=== PATIENT | female | born 1940 | race Caucasian/White ===

== ENCOUNTER → 2018-04-12 15:53 | Outpatient (CLI) | payer MEDICARE, OTHER, SELFPAY ==
[2018-04-12 16:56] LABS: Add Manual Diff / Slide Review NO; Basophils Percent Auto 1.3 % (0-2); Eosinophils Percent Auto 1.2 % (2-4); Hematocrit 42.8 % (36-46); Hemoglobin 14.3 g/dL (12.0-16.0); Lymphocytes Percent Auto 23.6 % (25-40); Mean Corpuscular HGB Conc 33.4 % (30-36); Mean Corpuscular Hemoglobin 33.2 PG (26-34); Mean Corpuscular Volume 99.5 fL (80-100); Monocytes Percent Auto 7.3 % (3-14); Neutrophils Absolute Auto 3900 /uL (3000-5900); Neutrophils Percent Auto 66.6 % (50-75); Platelet Count 372 X10^3/uL (150-400); Red Cell Distribution Width 14.3 % (11.6-14.8); White Blood Cell Count 5.9 X10^3/uL (4.5-11.0)
[2018-04-12 17:27] LABS: Alanine Aminotransferase 20 IU/L (9-52); Albumin 4.6 g/dL (3.5-5.0); Albumin Globulin Ratio 1.5 (1.0-2.8); Alkaline Phosphatase 62 U/L (38-126); Aspartate Aminotransferase 23 IU/L (14-36); BUN Creatinine Ratio 24.3 (6-22); Bilirubin Total 0.8 mg/dL (0.2-1.3); Blood Urea Nitrogen 17 mg/dL (7-17); C-Reactive Protein Quant 1.3 mg/dL (<1.0); Calcium 10.1 mg/dL (8.4-10.2); Carbon Dioxide 28 mmol/L (22-32); Chloride 93 mmol/L (98-107); Estimated Glomerular Filt Rate > 60.0 mL/min (>60); Glucose 84 mg/dL (80-110); HEMOLYSIS < 15 (0-50); Sodium 133 mmol/L (137-145); Total Protein 7.6 g/dL (6.3-8.2)
[2018-04-12 17:44] LABS: Potassium 5.5 mmol/L (3.4-5.1)
== END ==
PROVIDERS: PCP Internal Medicine; Visit Provider Internal Medicine Rheumatology
DX: M05.79 Rheumatoid arthritis with rheumatoid factor of multiple sites without organ or systems involvement (principal); Z79.899 Other long term (current) drug therapy
CPT/HCPCS: 36415; 80053; 85025; 86140

== ENCOUNTER → 2018-10-14 12:29 | Outpatient (CLI) | payer MEDICARE, OTHER, SELFPAY ==
[2018-10-14 12:56] LABS: Add Manual Diff / Slide Review NO; Basophils Percent Auto 1.2 % (0-2); Eosinophils Percent Auto 1.8 % (2-4); Hematocrit 42.3 % (36-46); Hemoglobin 14.2 g/dL (12.0-16.0); Lymphocytes Percent Auto 18.7 % (25-40); Mean Corpuscular HGB Conc 33.5 % (30-36); Mean Corpuscular Hemoglobin 33.6 PG (26-34); Mean Corpuscular Volume 100.1 fL (80-100); Monocytes Percent Auto 11.6 % (3-14); Neutrophils Absolute Auto 4700 /uL (1500-7000); Neutrophils Percent Auto 66.7 % (50-75); Platelet Count 393 X10^3/uL (150-400); Red Blood Cell Count 4.22 X10^6/uL (4.0-5.2)
[2018-10-14 13:11] LABS: Alanine Aminotransferase 18 IU/L (9-52); Albumin 4.7 g/dL (3.5-5.0); Albumin Globulin Ratio 1.3 (1.0-2.8); Alkaline Phosphatase 73 U/L (38-126); Aspartate Aminotransferase 28 IU/L (14-36); Bilirubin Total 1.2 mg/dL (0.2-1.3); Blood Urea Nitrogen 21 mg/dL (7-17); C-Reactive Protein Quant < 0.5 mg/dL (<1.0); Calcium 10.2 mg/dL (8.4-10.2); Carbon Dioxide 29 mmol/L (22-32); Chloride 97 mmol/L (98-107); Estimated Glomerular Filt Rate > 60.0 mL/min (>60); Globulin 3.5 g/dL (1.7-4.1); Glucose 91 mg/dL (80-110); HEMOLYSIS < 15 (0-50); Sodium 137 mmol/L (137-145); Total Protein 8.2 g/dL (6.3-8.2)
== END ==
PROVIDERS: Family Provider Internal Medicine; PCP Internal Medicine; Visit Provider Internal Medicine Rheumatology
DX: M05.79 Rheumatoid arthritis with rheumatoid factor of multiple sites without organ or systems involvement (principal); Z79.899 Other long term (current) drug therapy
CPT/HCPCS: 36415; 80053; 85025; 86140

== ENCOUNTER → 2019-01-09 09:04 | Outpatient (CLI) | payer MEDICARE, OTHER, SELFPAY ==
[2019-01-09 10:07] LABS: Blood Urea Nitrogen 14 mg/dL (7-17); Calcium 9.8 mg/dL (8.4-10.2); Carbon Dioxide 30 mmol/L (22-32); Chloride 97 mmol/L (98-107); Cholesterol 216 mg/dL (140-199); Estimated Glomerular Filt Rate > 60.0 mL/min (>60); Glucose 96 mg/dL (80-110); HDL Cholesterol 62 mg/dL (40-60); HEMOLYSIS < 15 (0-50); LDL Cholesterol Calculated 134 mg/dL (<100); Potassium 4.8 mmol/L (3.4-5.1); Sodium 136 mmol/L (137-145); Triglycerides 101 mg/dL (35-150)
[2019-01-09 11:10] LABS: Vitamin D 25 Hydroxy (D3) 54.9 ng/mL (30.0-100.0)
== END ==
PROVIDERS: Family Provider Internal Medicine; PCP Internal Medicine; Visit Provider Internal Medicine
DX: M81.0 Age-related osteoporosis without current pathological fracture (principal); E78.5 Hyperlipidemia, unspecified
CPT/HCPCS: 36415; 80048; 80061; 82306

== ENCOUNTER → 2019-04-14 13:04 | Outpatient (CLI) | payer MEDICARE, OTHER, SELFPAY ==
[2019-04-14 14:37] LABS: Add Manual Diff / Slide Review NO; Basophils Absolute Auto 0 /uL (0-100); Basophils Percent Auto 0.5 % (0-2); Eosinophils Absolute Auto 100 /uL (0-450); Eosinophils Percent Auto 1.3 % (2-4); Hematocrit 40.7 % (36-46); Hemoglobin 13.5 g/dL (12.0-16.0); Lymphocytes Absolute Auto 1000 /uL (1100-4500); Lymphocytes Percent Auto 13.6 % (25-40); Mean Corpuscular HGB Conc 33.2 % (30-36); Mean Corpuscular Hemoglobin 32.7 PG (26-34); Mean Corpuscular Volume 98.3 fL (80-100); Monocytes Absolute Auto 600 /uL (0-900); Monocytes Percent Auto 7.7 % (3-14); Neutrophils Absolute Auto 5800 /uL (1500-7000); Neutrophils Percent Auto 76.9 % (50-75); Platelet Count 338 X10^3/uL (150-400); Red Blood Cell Count 4.14 X10^6/uL (4.0-5.2); Red Cell Distribution Width 15.5 % (11.6-14.8); White Blood Cell Count 7.5 X10^3/uL (4.5-11.0)
[2019-04-14 15:00] LABS: Alanine Aminotransferase 12 IU/L (9-52); Albumin 4.5 g/dL (3.5-5.0); Albumin Globulin Ratio 1.5 (1.0-2.8); Alkaline Phosphatase 62 U/L (38-126); Aspartate Aminotransferase 22 IU/L (14-36); BUN Creatinine Ratio 21.7 (6-22); Bilirubin Total 0.7 mg/dL (0.2-1.3); Blood Urea Nitrogen 13 mg/dL (7-17); C-Reactive Protein Quant 1.5 mg/dL (<1.0); Calcium 10.2 mg/dL (8.4-10.2); Carbon Dioxide 29 mmol/L (22-32); Chloride 95 mmol/L (98-107); Estimated Glomerular Filt Rate > 60.0 mL/min (>60); Glucose 96 mg/dL (80-110); HEMOLYSIS < 15 (0-50); Sodium 135 mmol/L (137-145); Total Protein 7.5 g/dL (6.3-8.2)
[2019-04-14 15:01] LABS: Potassium 5.8 mmol/L (3.4-5.1)
== END ==
PROVIDERS: Family Provider Internal Medicine; PCP Internal Medicine; Visit Provider Internal Medicine Rheumatology
DX: M05.79 Rheumatoid arthritis with rheumatoid factor of multiple sites without organ or systems involvement (principal); Z79.899 Other long term (current) drug therapy
CPT/HCPCS: 36415; 80053; 85025; 86140

== ENCOUNTER → 2020-04-04 08:27 | Outpatient (CLI) | payer MEDICARE, OTHER, SELFPAY ==
[2020-04-04 08:58] LABS: Hematocrit 38.8 % (36-46); Hemoglobin 13.2 g/dL (12.0-16.0); Mean Corpuscular HGB Conc 34.1 % (30-36); Mean Corpuscular Hemoglobin 34.5 PG (26-34); Mean Corpuscular Volume 101.2 fL (80-100); Platelet Count 357 X10^3/uL (150-400); Red Blood Cell Count 3.83 X10^6/uL (4.0-5.2); Red Cell Distribution Width 16.1 % (11.6-14.8); White Blood Cell Count 6.4 X10^3/uL (4.5-11.0)
[2020-04-04 09:14] LABS: Alanine Aminotransferase 10 IU/L (<35); Albumin 4.7 g/dL (3.5-5.0); Albumin Globulin Ratio 1.6 (1.0-2.8); Alkaline Phosphatase 61 U/L (38-126); Aspartate Aminotransferase 26 IU/L (14-36); BUN Creatinine Ratio 23.9 (6-22); Bilirubin Total 0.9 mg/dL (0.2-1.3); Blood Urea Nitrogen 17 mg/dL (7-17); Calcium 10.1 mg/dL (8.4-10.2); Carbon Dioxide 28 mmol/L (22-32); Chloride 92 mmol/L (98-107); Cholesterol 217 mg/dL (140-199); Estimated Glomerular Filt Rate > 60.0 mL/min (>60); Glucose 103 mg/dL (80-110); HDL Cholesterol 55 mg/dL (40-60); HEMOLYSIS < 15 (0-50); LDL Cholesterol Calculated 135 mg/dL (<100); Potassium 4.6 mmol/L (3.4-5.1); Sodium 130 mmol/L (137-145); Total Protein 7.7 g/dL (6.3-8.2); Triglycerides 133 mg/dL (35-150)
== END ==
PROVIDERS: Family Provider Internal Medicine; PCP Internal Medicine; Referring Provider Internal Medicine; Visit Provider Internal Medicine
DX: E78.5 Hyperlipidemia, unspecified (principal); M05.80 Other rheumatoid arthritis with rheumatoid factor of unspecified site; I10 Essential (primary) hypertension
CPT/HCPCS: 36415; 80053; 80061; 85027

== ENCOUNTER 2021-03-01 09:15 | Inpatient (IN) | payer MEDICARE, OTHER, SELFPAY ==
[2021-03-01] VITALS (8 sets, daily range): BP systolic 115–149; BP diastolic 55–77; PULSE 89–107; RESP 12–24; TEMP 36.6–37.1; O2SAT 94–100; BMI 17.6
--- NOTE | 2021-03-01 09:37 | DI.RAD.S_ITS ---
PROCEDURE: XR CHEST 2V INDICATIONS: shortness of breath TECHNIQUE: 2 views of the chest were acquired. COMPARISON: [facility], CT, THORAX WITHOUT CONTRAST, 12/27/2014, 9:34. [facility], CR, CHEST 2 VIEW, 01/30/2015, 15:05. [facility], CR, CHEST 2 VIEW, 01/08/2015, 12:11. [facility], , CHEST 1 VIEW, 03/05/2015, 18:04. FINDINGS: Surgical changes and devices: None. Lungs and pleura: Mild generalized interstitial prominence can be seen. No pleural effusions or pneumothorax. Mediastinum: The cardiac contours are within normal limits. The aorta demonstrates calcification and tortuosity. Bones and chest wall: No suspicious bony abnormalities. Age-appropriate bony degenerative changes are seen. Accentuated thoracic kyphosis is seen. Several thoracic spine compression deformities are seen, including a severe compression deformity at the approximate T11 level. Soft tissues appear unremarkable. IMPRESSION: Interstitial prominence is seen throughout. The interstitial prominence is nonspecific, yet may be related to pulmonary edema. Several thoracic spine compression deformities are seen, which are similar to priors. Dictated by: Aakash Telles M.D. on 03/01/2021 at 8:53 Approved by: Aakash Telles M.D. on 03/01/2021 at 8:55
--- NOTE | 2021-03-01 10:38 | ED_ITS ---
HPI - SOB/Dyspnea General Chief Complaint: Shortness of Breath/Dyspnea Stated Complaint: COPD Time Seen by Provider: 03/01/21 09:58 Source: patient Mode of arrival: EMS Limitations: no limitations History of Present Illness HPI Narrative: This is an 80-year-old female comes emergency department with complaint right lower extremity pain and inability to transfer or move about at home in the last 24 hours. Patient states that she has had some mild pain in her thigh the day before but states she does not typically have pain in that lower extremity she does not recall any trauma or injury. She describes her pain in her right thigh. She has not appreciate any swelling, warmth, skin changes. She denies any pain in the knee but does appreciate some in the hip patient states she has chronic swelling in her lower extremities but does not feel like it is any worse than normal. She denies any fevers or chills. No chest pain or pressure. She has chronic shortness of breath which she states is not new she does not think it is any worse although she was told her oxygen was low with EMS in the 80s she states she does not normally use oxygen. She does use inhalers regularly and states she does have a history of COPD and quit smoking 25 years ago. Patient denies any abdominal pain, no nausea or vomiting. No diarrhea constipation. No new urinary issues. She does ambulate at home with a walker and use a lift assist to help her out of bed. Her sister helps with caregiving daily and states they were not able to move her to the bedside commode today. Patient does not believe that she has any weakness in that leg although she states 2 painful. She was able to stand but could not weight bear on the leg. Patient takes Aleve typically for chronic joint pain secondary to rheumatoid arthritis. She is on methotrexate weekly, folic acid and amlodipine. Patient does not take any aspirin or thinners. She had a prior left hip replacement but is her right lower extremity that is hurting her today. She drinks a beer daily, no recent tobacco or illicit. Her PCP is Dr. Ilana Frances. Related Data Home Medications Medication Instructions Recorded Confirmed AMLODIPINE BESYLATE (#NORVASC) 5 mg PO AC #0 04/15/13 03/01/21 timolol maleate 1 drp OPHTH HS #5 ml 04/15/13 03/01/21 Allergies Allergy/AdvReac Type Severity Reaction Status Date / Time clindamycin [CLINDAMYCIN] Allergy Mild RASH Verified 03/01/21 12:15 rosuvastatin [ROSUVASTATIN] Allergy Mild ACHING Verified 03/01/21 12:15 MUSCLES Review of Systems Review of Systems ROS Unobtainable: All systems reviewed & are unremarkable except as noted in HPI and below Patient History Medical History (Updated 03/01/21 @ 16:40 by Hardik Shearer MD) Rheumatoid arthritis Tobacco abuse Surgical History History of left hip replacement Social History household members: none Smoking Status: Former smoker alcohol intake: current Smoking Status: Former smoker alcohol intake frequency: 0-2 drinks per day Alcohol type: beer Substance Use Type: does not use Exam Narrative Exam Narrative: GEN: well nourished, thin well appearing elderly female, alert and oriented x 3, patient appears to be in mild distress. HEENT: Atraumatic, pupils are equal round reactive to light, extraocular movements are intact, nares are clear. Throat is clear without any exudates, erythema, tonsillar enlargement or uvular deviation, facial droop. HEART: Regular rate and rhythm without murmur, clicks, rubs. Pulses are equal in upper and lower extremities LUNGS:Lungs clear to auscultation, no wheezes, rales, crackles, chest moves symmetrically, patient did appear mildly tachypneic while transporting from x- ray back to the room but while I am in the room with the patient this is improved. ABD:bowel sounds normal, soft, non-tender, no guarding, rebound, rigidity, no masses noted, no hepatosplenomegaly :No CVA tenderness. MSCL: Patient has [id number] tenderness of the right thigh as well as mild the right greater trochanter. Able to move the leg mildly patient is not exquisitely tender but is uncomfortable. No other discrete bony tenderness is noted throughout the right lower extremity. She has some mild pedal edema both lower extremities. There is no swelling, there is no warmth, there is no cyanosis, pallor in right compared to left or erythema or ecchymosis noted, patient has decreased muscle atrophy bilaterally, decreased range of motion of right lower extremity. Patient does have pulses bilateral lower extremities which are equal. She has sensation both lower extremities. Patient has good plantar flexion dorsiflexion in her right foot. NEURO:CN 2-12 intact, sensation normal. Initial Vital Signs Initial Vital Signs: Vital Signs Temperature 98.2 F 03/01/21 09:25 Pulse Rate 101 H 03/01/21 09:25 Respiratory Rate 24 03/01/21 09:25 Blood Pressure 149/68 H 03/01/21 09:25 Pulse Oximetry 100 03/01/21 09:25 Scores GCS Yaron coma scale eye opening: Spontaneous Montague coma scale verbal response: Orientated Yaron coma scale motor response: Obey commands Yaron coma scale total score: 15 Course Orders Ordered: ED Orders 03/01/21 09:50 EKG-12 Lead Routine 03/01/21 10:25 COVID19 - ADMIT (ENROBER swab/PCR) Stat 03/01/21 11:25 Complete Blood Count AUTO DIFF Stat Comprehensive Metabolic Panel Stat Lactate (Lactic Acid) Stat Magnesium Stat NT-proBNP (BNP-Adult 18+) Stat Partial Thromboplastin Time Stat Procalcitonin Stat Prothrombin Time INR Stat Troponin & CK Cardiac Panel Stat 03/01/21 11:53 XR hip w pel if done RT 2V Stat XR knee RT 1to2V Stat 03/01/21 12:20 Urine Culture Stat Urine Microscopic Stat Acetaminophen (Acetaminophen 325 Mg Tablet) 650 mg PO Q6HR PRN PRN Reason: Fever/Mild Pain (1-3) Albuterol (Albuterol 2.5 Mg/3 Ml Neb (Adult)) 2.5 mg INH [id number] PRN PRN Reason: Shortness Of Breath Albuterol/Ipratropium (Albuterol/Ipratropium 3 Ml Ampul) 3 ml INH [id number] CLAUDIA Cefazolin Sodium (Cefazolin 1 Gm Vial) 1 gm IV NOW ONE Stop: 03/02/21 07:31 Enoxaparin Sodium (Enoxaparin 40 Mg/0.4 Ml Syringe) 40 mg SUBCUT DAILY CLAUDIA Sodium Chloride (Normal Saline 0.9%) 1,000 mls @ 150 mls/hr IV CONT CLAUDIA Last Infusion: 03/01/21 14:39 Dose: 0 mls/hr Documented by: Infusion: 03/01/21 14:04 Dose: 0 mls/hr Documented by: [email or web address] Admin: 03/01/21 12:32 Dose: 150 mls/hr Documented by: CARLOS Ceftriaxone Sodium/Dextrose (Rocephin) 1 gm in 50 mls @ 100 mls/hr IV Q24H [facility] Azithromycin 500 mg/ Dextrose 250 mls @ 250 mls/hr IV Q24H [facility] Morphine Sulfate (Morphine 2 Mg/Ml Inj) 2 mg IV Q4HR PRN PRN Reason: Pain, Moderate (4-6) Naloxone HCl (Naloxone 0.4 Mg/Ml Vial) 0.2 mg IV Q2MIN PRN PRN Reason: Opiate Reversal Ondansetron HCl (Ondansetron 4 Mg/2 Ml Inj) 4 mg IV Q6HR PRN PRN Reason: Nausea And Vomiting Last Admin: 03/01/21 12:40 Dose: 4 mg Documented by: CARLOS Oxycodone HCl (Oxycodone Ir 5 Mg Tablet) 5 mg PO Q6HR PRN PRN Reason: Pain, Moderate (4-6) Prednisone (Prednisone 20 Mg Tablet) 40 mg PO DAILY [facility] Discontinued Medications Albuterol/Ipratropium (Albuterol/Ipratropium 3 Ml Ampul) 3 ml INH NOW ONE Stop: 03/01/21 09:38 Last Admin: 03/01/21 10:00 Dose: Not Given Documented by: LARRY Aspirin (Aspirin 81 Mg Chew Tab) 324 mg PO NOW ONE Stop: 03/01/21 12:14 Last Admin: 03/01/21 12:31 Dose: 324 mg Documented by: CARLOS Furosemide (Furosemide 40 Mg/4 Ml Vial) 40 mg IV NOW ONE Stop: 03/01/21 12:14 Last Admin: 03/01/21 12:37 Dose: 40 mg Documented by: CARLOS Ceftriaxone Sodium/Dextrose (Rocephin) 1 gm in 50 mls @ 100 mls/hr IV Q24H [facility] Last Admin: 03/01/21 16:43 Dose: Not Given Documented by: FATOU Azithromycin 500 mg/ Dextrose 250 mls @ 250 mls/hr IV Q24H [facility] Methylprednisolone (Methylprednisolone 125 Mg/2 Ml Vial) 125 mg IV NOW ONE Stop: 03/01/21 11:57 Last Admin: 03/01/21 12:31 Dose: 125 mg Documented by: CARLOS Morphine Sulfate (Morphine 2 Mg/Ml Inj) 2 mg IV NOW ONE Stop: 03/01/21 11:54 Last Admin: 03/01/21 12:43 Dose: 2 mg Documented by: CARLOS Consultations Consultation #1: Dr. Shearer from orthopedic surgery. Images were reviewed. Patient is NPO at 8:00 a.m. likely OR tomorrow. Consultation #2: Dr. Robison hospitalist kindly accepts for admission. He is here in the department with the patient. Vital Signs Vital signs: Vital Signs - 8 hr 03/01/21 11:20 03/01/21 13:01 Pulse Rate 106 H 103 H Respiratory Rate 24 21 Blood Pressure 146/68 H 146/66 H Pulse Oximetry 94 94 MDM - SOB/Dyspnea Lab Data Attestation: I reviewed the patient's lab results. Result diagrams: 03/01/21 11:25 03/01/21 11:25 Labs: Lab Results 03/01/21 03/01/21 03/01/21 Range/Units 10:25 11:25 11:25 WBC 10.0 (4.5-11.0) X10^3/uL RBC 4.22 (4.0-5.2) X10^6/uL Hgb 12.2 (12.0-16.0) g/dL Hct 37.2 (36-46) % MCV 88.0 (80-100) fL MCH 28.9 (26-34) PG MCHC 32.8 (30-36) % RDW 16.2 H (11.6-14.8) % Plt Count 316 (150-400) X10^3/uL Neut % (Auto) 93.9 H (50-75) % Lymph % (Auto) 3.8 L (25-40) % Alger % (Auto) 1.6 L (3-14) % Eos % (Auto) 0.3 L (2-4) % Baso % (Auto) 0.4 (0-2) % Neut # (Auto) 9400 H (6376-4326) /uL Lymph # (Auto) 400 L (7616-3513) /uL Alger # (Auto) 200 (0-900) /uL Eos # (Auto) 0 (0-450) /uL Baso # (Auto) 0 (0-100) /uL PT 12.1 (10.1-12.7) SECONDS INR 1.1 (0.9-1.3) APTT 30 (26.4-36.2) SECONDS Sodium (137-145) mmol/L Potassium (3.4-5.1) mmol/L Chloride (98-107) mmol/L Carbon Dioxide (22-32) mmol/L BUN (7-17) mg/dL Creatinine (0.52-1.04) mg/dL Estimated GFR (>60) mL/min BUN/Creatinine Ratio (6-22) Glucose (80-110) mg/dL Lactate (0.7-2.1) mmol/L Calcium (8.4-10.2) mg/dL Magnesium (1.6-2.3) mg/dL Total Bilirubin (0.2-1.3) mg/dL AST (14-36) IU/L ALT (<35) IU/L Alkaline Phosphatase (38-126) U/L Total Creatine Kinase (30-135) U/L CK-MB (CK-2) (<2.37) ng/mL CK-MB (CK-2) Rel Index (1.5-5.0) % Troponin I (0.01-0.034) ng/mL NT-Pro-B Natriuret Pep (<450) pg/mL Total Protein (6.3-8.2) g/dL Albumin (3.5-5.0) g/dL Globulin (1.7-4.1) g/dL Albumin/Globulin Ratio (1.0-2.8) Procalcitonin (<0.5) ng/mL Urine RBC (0-5/HPF) Urine WBC (0-5/HPF) Urine Bacteria (None) Ur Culture Indicated? SARS-CoV-2 (PCR) Negative (Negative) 03/01/21 03/01/21 03/01/21 Range/Units 11:25 11:25 12:20 WBC (4.5-11.0) X10^3/uL RBC (4.0-5.2) X10^6/uL Hgb (12.0-16.0) g/dL Hct (36-46) % MCV (80-100) fL MCH (26-34) PG MCHC (30-36) % RDW (11.6-14.8) % Plt Count (150-400) X10^3/uL Neut % (Auto) (50-75) % Lymph % (Auto) (25-40) % Alger % (Auto) (3-14) % Eos % (Auto) (2-4) % Baso % (Auto) (0-2) % Neut # (Auto) (4229-5330) /uL Lymph # (Auto) (2669-2100) /uL Alger # (Auto) (0-900) /uL Eos # (Auto) (0-450) /uL Baso # (Auto) (0-100) /uL PT (10.1-12.7) SECONDS INR (0.9-1.3) APTT (26.4-36.2) SECONDS Sodium 132 L (137-145) mmol/L Potassium 3.8 (3.4-5.1) mmol/L Chloride 92 L (98-107) mmol/L Carbon Dioxide 27 (22-32) mmol/L BUN 21 H (7-17) mg/dL Creatinine 0.61 (0.52-1.04) mg/dL Estimated GFR > 60.0 (>60) mL/min BUN/Creatinine Ratio 34.4 H (6-22) Glucose 151 H (80-110) mg/dL Lactate 3.3 H (0.7-2.1) mmol/L Calcium 9.6 (8.4-10.2) mg/dL Magnesium 1.9 (1.6-2.3) mg/dL Total Bilirubin 1.2 (0.2-1.3) mg/dL AST 36 (14-36) IU/L ALT 21 (<35) IU/L Alkaline Phosphatase 128 H (38-126) U/L Total Creatine Kinase 150 H (30-135) U/L CK-MB (CK-2) 1.72 (<2.37) ng/mL CK-MB (CK-2) Rel Index 1.1 L (1.5-5.0) % Troponin I < 0.012 (0.01-0.034) ng/mL NT-Pro-B Natriuret Pep 1580 H (<450) pg/mL Total Protein 7.4 (6.3-8.2) g/dL Albumin 3.7 (3.5-5.0) g/dL Globulin 3.7 (1.7-4.1) g/dL Albumin/Globulin Ratio 1.0 (1.0-2.8) Procalcitonin 0.09 (<0.5) ng/mL Urine RBC 1-5/hpf (0-5/HPF) Urine WBC 5-10/hpf H (0-5/HPF) Urine Bacteria None seen (None) Ur Culture Indicated? Specimen cultured SARS-CoV-2 (PCR) (Negative) Urine Dip Bedside Urine Glucose Negative Bedside Urine Bilirubin - Negative Bedside Urine Ketone - Negative Urine Specific [place] 1.030 Bedside Urine Occult Blood +/- Bedside Urine pH 6 Bedside Urine Protein +/- 15 Bedside Urine Urobilinogen - Negative Bedside Urine Nitrite - Negative Bedside Urine Leukocytes - Negative Esterase Imaging Data Chest x-ray: Radiologist's Impression: [address] [id number] ReportSigned Patient: Marlene Llamas MMR#: [id number]: 8Acct:[id number]/Sex: 80 / FDate of Service: 03/01/21Loc: EDAccession Number: [id number] Procedure: XR chest 2V Ordering Provider: Brittani Asencio D.O. PROCEDURE: XR CHEST 2V INDICATIONS: shortness of breath TECHNIQUE: 2 views of the chest were acquired. COMPARISON: [facility], CT, THORAX WITHOUT CONTRAST, 12/27/2014, 9:34. [facility], CR, CHEST 2 VIEW, 01/30/2015, 15:05. [facility], CR, CHEST 2 VIEW, 01/08/2015, 12:11. [facility], , CHEST 1 VIEW, 03/05/2015, 18:04. FINDINGS: Surgical changes and devices: None. Lungs and pleura: Mild generalized interstitial prominence can be seen. No pleural effusions or pneumothorax. Mediastinum: The cardiac contours are within normal limits. The aorta demonstrates calcification and tortuosity. Bones and chest wall: No suspicious bony abnormalities. Age-appropriate bony degenerative changes are seen. Accentuated thoracic kyphosis is seen. Several thoracic spine compression deformities are seen, including a severe compression deformity at the approximate T11 level. Soft tissues appear unremarkable. IMPRESSION: Interstitial prominence is seen throughout. The interstitial pr ominence is nonspecific, yet may be related to pulmonary edema. Several thoracic spine compression deformities are seen, which are similar to priors. Dictated by: Aakash Telles M.D. on 03/01/2021 at 8:53 Approved by: Aakash Telles M.D. on 03/01/2021 at 8:55 Extremity x-ray #1: My Impression: [address] [id number] ReportSigned Patient: Marlene Llamas MMR#: [id number]: 1940cct:[id number]/Sex: 80 / FDate of Service: 03/01/21Loc: EDAccession Number: [id number] Procedure: XR knee RT 1to2V Ordering Provider: Brittani Asencio D.O. PROCEDURE: XR KNEE RT 1TO2V INDICATIONS: hip/leg pain, acute TECHNIQUE: 2 views of the knee were acquired. COMPARISON: [facility], CR, XR HIP W PEL IF DONE RT 2V, 03/01/2021, 11:56. [facility], CR, XR CHEST 2V, 03/01/2021, 9:35. FINDINGS: Bones: Horizontally oriented lucent and sclerotic lines are seen through the distal femur and proximal tibia, which have the appearance of remote, chronic fractures. Soft tissues: Soft tissue swelling is seen, particularly medially. Atherosclerotic calcification is noted. IMPRESSION: Likely chronic fractures of the distal femur and proximal tibia. In this patient with trauma and a proximal femur fracture, differential diagnosis would also include acute fractures. Please correlate with focal tenderness. Please consider a dedicated CT study for further evaluation. Dictated by: Aakash Telles M.D. on 03/01/2021 at 11:52 Approved by: Aakash Telles M.D. on 03/01/2021 at 11:54 Extremity x-ray #2: Radiologist's Impression: Marlene Llamas 80 F [address] [id number] ReportSigned Patient: Marlene Llamas MMR#: [id number]: 1940cct:[id number]/Sex: 80 / FDate of Service: 03/01/21Loc: EDAccession Number: [id number] Procedure: XR hip w pel if done RT 2V Ordering Provider: Brittani Asencio D.O. PROCEDURE: XR HIP W PEL IF DONE RT 2V INDICATIONS: right hip/thigh pain TECHNIQUE: AP pelvis with lateral view(s) of the right hip(s). COMPARISON: [facility], CR, HIP 2V LEFT, 03/06/2015, 14:31. [facility], CR, XR CHEST 2V, 03/01/2021, 9:35. [facility], CR, XR KNEE RT 1TO2V, 03/01/2021, 11:56. FINDINGS: Bones: There is a prominently displaced right subcapital fracture seen, with mild comminution. No dislocation is seen. No associated pelvic fracture can be seen. Left hip arthroplasty hardware is seen. Soft tissues: The visualized bowel gas pattern is normal. No suspicious soft tissue calcifications. There is a calcified uterine fibroid seen. IMPRESSION: Prominently displaced right femoral neck fracture. Dictated by: Aakash Telles M.D. on 03/01/2021 at 11:51 Approved by: Aakash Telles M.D. on 03/01/2021 at 11:52 ECG Data Attestation: I personally reviewed and interpreted this ECG as follows: Prior ECG tracings: not available for review Interpretation: Sinus tachycardia rate of 104 PR156 QRS 80 QTC 397. Patient appears to have some depression in lateral leads particularly V3 a-V6. No elevation is appreciated. Patient has prior EKG from [address] depression. [facility] Narrative Medical decision making narrative: An 80-year-old female comes in with right lower extremity pain which is atraumatic. X-ray imaging shows fracture of the right hip with no clear trauma. Patient denies increasing shortness of breath but was requiring O2 via EMS. She received breathing treatment EN route. She is on 2 L here. She does have a history of issues does not use inhalers regularly and is not wheezing on examination. Patient does appear to have component of CHF with pulmonary edema noted on chest x-ray and elevated BNP with no priors for comparison. Shows appears to have some ST depression which appears new from prior EKG of 2014, patient denies any chest pain or pressure and does not feel significantly more short of breath. Patient covid swab is negative. Patient case was discussed with Dr. Shearer who is aware of hip fracture. Dr. Robison from hospital service accepts for admission. Discharge Plan Departure Patient Disposition: Admitted As Inpatient Clinical Impression: Closed fracture of right hip, Acute exacerbation of chronic obstructive pulmonary disease Admit Date/Time: 03/01/21 13:36 Admit Provider: Mark Robison
[2021-03-01 11:33] LABS: Add Manual Diff / Slide Review NO; Basophils Absolute Auto 0 /uL (0-100); Basophils Percent Auto 0.4 % (0-2); Eosinophils Absolute Auto 0 /uL (0-450); Eosinophils Percent Auto 0.3 % (2-4); Hematocrit 37.2 % (36-46); Hemoglobin 12.2 g/dL (12.0-16.0); Lymphocytes Absolute Auto 400 /uL (1100-4500); Lymphocytes Percent Auto 3.8 % (25-40); Mean Corpuscular HGB Conc 32.8 % (30-36); Mean Corpuscular Hemoglobin 28.9 PG (26-34); Monocytes Absolute Auto 200 /uL (0-900); Monocytes Percent Auto 1.6 % (3-14); Neutrophils Absolute Auto 9400 /uL (1500-7000); Neutrophils Percent Auto 93.9 % (50-75); Platelet Count 316 X10^3/uL (150-400); Red Blood Cell Count 4.22 X10^6/uL (4.0-5.2); Red Cell Distribution Width 16.2 % (11.6-14.8)
[2021-03-01 11:47] LABS: INR 1.1 (0.9-1.3); Prothrombin Time 12.1 SECONDS (10.1-12.7)
[2021-03-01 11:49] LABS: PTT Partial Thromboplastin Tim 30 SECONDS (26.4-36.2)
[2021-03-01 11:50] LABS: Lactate (Lactic Acid) 3.3 mmol/L (0.7-2.1)
[2021-03-01 11:51] LABS: Alanine Aminotransferase 21 IU/L (<35); Albumin 3.7 g/dL (3.5-5.0); Alkaline Phosphatase 128 U/L (38-126); Aspartate Aminotransferase 36 IU/L (14-36); BUN Creatinine Ratio 34.4 (6-22); Bilirubin Total 1.2 mg/dL (0.2-1.3); Blood Urea Nitrogen 21 mg/dL (7-17); Calcium 9.6 mg/dL (8.4-10.2); Carbon Dioxide 27 mmol/L (22-32); Chloride 92 mmol/L (98-107); Creatine Kinase 150 U/L (30-135); Estimated Glomerular Filt Rate > 60.0 mL/min (>60); Globulin 3.7 g/dL (1.7-4.1); Glucose 151 mg/dL (80-110); HEMOLYSIS 19 (0-50); Magnesium 1.9 mg/dL (1.6-2.3); Potassium 3.8 mmol/L (3.4-5.1); Sodium 132 mmol/L (137-145); Total Protein 7.4 g/dL (6.3-8.2)
--- NOTE | 2021-03-01 11:53 | DI.RAD.S_ITS ---
PROCEDURE: XR KNEE RT 1TO2V INDICATIONS: hip/leg pain, acute TECHNIQUE: 2 views of the knee were acquired. COMPARISON: [facility], CR, XR HIP W PEL IF DONE RT 2V, 03/01/2021, 11:56. [facility], CR, XR CHEST 2V, 03/01/2021, 9:35. FINDINGS: Bones: Horizontally oriented lucent and sclerotic lines are seen through the distal femur and proximal tibia, which have the appearance of remote, chronic fractures. Soft tissues: Soft tissue swelling is seen, particularly medially. Atherosclerotic calcification is noted. IMPRESSION: Likely chronic fractures of the distal femur and proximal tibia. In this patient with trauma and a proximal femur fracture, differential diagnosis would also include acute fractures. Please correlate with focal tenderness. Please consider a dedicated CT study for further evaluation. Dictated by: Aakash Telles M.D. on 03/01/2021 at 11:52 Approved by: Aakash Telles M.D. on 03/01/2021 at 11:54
--- NOTE | 2021-03-01 11:53 | DI.RAD.S_ITS ---
PROCEDURE: XR HIP W PEL IF DONE RT 2V INDICATIONS: right hip/thigh pain TECHNIQUE: AP pelvis with lateral view(s) of the right hip(s). COMPARISON: [facility], DIANN, HIP 2V LEFT, 03/06/2015, 14:31. [facility], CR, XR CHEST 2V, 03/01/2021, 9:35. [facility], CR, XR KNEE RT 1TO2V, 03/01/2021, 11:56. FINDINGS: Bones: There is a prominently displaced right subcapital fracture seen, with mild comminution. No dislocation is seen. No associated pelvic fracture can be seen. Left hip arthroplasty hardware is seen. Soft tissues: The visualized bowel gas pattern is normal. No suspicious soft tissue calcifications. There is a calcified uterine fibroid seen. IMPRESSION: Prominently displaced right femoral neck fracture. Dictated by: Aakash Telles M.D. on 03/01/2021 at 11:51 Approved by: Aakash Telles M.D. on 03/01/2021 at 11:52
[2021-03-01 12:03] LABS: NT-proBNP (BNP-Adult 18+) 1580 pg/mL (<450); Troponin I < 0.012 ng/mL (0.01-0.034)
[2021-03-01 12:06] LABS: CKMB % Relative Index 1.1 % (1.5-5.0); Creatine Kinase MB 1.72 ng/mL (<2.37)
[2021-03-01 12:06] LABS: COVID19 - ADMIT (NP swab/PCR) Negative (Negative)
[2021-03-01 12:07] LABS: Procalcitonin 0.09 ng/mL (<0.5)
[2021-03-01 12:27] LABS: Bacteria Urine None Seen
[2021-03-01] MEDS: methylPREDNISolone 125 MG/2 ML VIAL IV (12:31)
[2021-03-01] MEDS: ASPIRIN 81 MG CHEW TAB 324 MG PO (12:31)
[2021-03-01] MEDS: SODIUM CHLORIDE 0.9% 1,000 ML 150 ML IV (12:32)
[2021-03-01] MEDS: FUROSEMIDE 40 MG/4 ML VIAL IV (12:37)
[2021-03-01] MEDS: ONDANSETRON 4 MG/2 ML INJ IV (12:40)
[2021-03-01 12:43] LABS: Culture Indicated Urine Specimen Cultured; RBC Urine 1-5/HPF (0-5/HPF); WBC Urine 5-10/HPF (0-5/HPF)
[2021-03-01] MEDS: MORPHINE 2 MG/ML INJ IV (12:43)
[2021-03-01 13:30] LABS: Reflexed Lactate in 2 Hours Y
--- NOTE | 2021-03-01 14:43 | PC.NURSE ---
pt arrived to floor with infiltrated iv access - this rn removed that iv and applied slight pressure dressing- unable to find another adequate access after attempting x several both by ed rn and agriculture laborer- will order outside source for placement- float RN completing admission assessment- pt is alert/oriented
[2021-03-01 15:05] LABS: Lactate 2HR (Lactic Acid Rflx) 2.9 mmol/L (0.7-2.1)
--- NOTE | 2021-03-01 15:17 | DI.ECHO.S_ITS ---
[facility]---------+ [facility] +---------+ : : [address] : [place] : : : : [id number] : : : : Phone: [phone]+ Echocardiogram Report + + :Name: ALEXSANDRA GREWAL Study Date: 03/03/2021 Height: 60 in : :[facility] ReadingLocation: Weight: 90 lb : : Gender: Female BSA: 1.3 m2 : :: 1940 Age: 80 yrs BP: 135/61 mmHg: :Reason For Study: CONGESTIVE HEART FAILURE : :Ordering Physician: LICO, : :BEE Performed By: Naomi Hooks : :Referring: BEE BARFIELD : + + Interpretation Summary 1) Small left ventricular cavity with normal wall motion, and normal systolic function (EF 60-65%). 2) Normal right ventricular size and function. 3) Mitral valve leaflets are thickened. There is moderate to severe mitral regurgitation. 4) There is moderate tricuspid regurgitation. 5) The right ventricular systolic pressure is estimated to be at least 52 mmHg based on an estimated right atrial pressure of 8 mm Hg. 6) No prior Echo available for comparison. Patient should establish care with cardiology (if not done already). Procedure: A two-dimensional transthoracic echocardiogram with color flow and Doppler was performed. The study quality was technically adequate. The patient had an echocardiogram, but there is no comparison study available. The heart rate ranged between 74-85 bpm during the study. Left Ventricle: The left ventricular cavity is small. The estimated left ventricular end diastolic volume is 46 ml. There is normal left ventricular wall thickness. The ejection fraction is estimated to be 60-65%. Diastolic parameters suggest a pseudonormalization pattern, consistent with probable elevated filling pressures. Right Ventricle: The right ventricle is normal size. The right ventricular systolic function is normal. Atria: The left atrium is moderately dilated. Right atrial size is normal. There is no Doppler evidence for an interatrial shunt. Mitral Valve: The mitral valve leaflets appear moderately thickened, but open well. The mitral valve leaflets are slightly calcified. There is moderate to severe mitral regurgitation. Aortic Valve: The aortic valve is not well visualized. There is no aortic valve stenosis. No aortic regurgitation is present. Tricuspid Valve: The tricuspid valve leaflets are thin and pliable. There is moderate tricuspid regurgitation. The right ventricular systolic pressure is estimated to be at least 52 mmHg based on an estimated right atrial pressure of 8 mm Hg. Pulmonic Valve: The pulmonic valve is not well visualized. There is no pulmonic valvular regurgitation. Great Vessels: The aortic root is normal size. The ascending aorta could not be visualized. The IVC is of normal diameter and collapses less than 50% with a sniff. This suggests a right atrial pressure of 8 mm Hg. Pericardium/ Pleura There is no pericardial effusion. There is no pleural effusion. MMode/2D Measurements & Calculations LVIDd: 3.5 cm LVOT diam: 2.0 cm LVIDs: 2.4 cm Ao root diam: 3.0 cm FS: 31.5 % IVSd: 1.1 cm LVPWd: 0.78 cm LV persaud. diameter/BSA (cm/m^2): 2.6 LV sys. diameter/BSA (cm/m^2): 1.8 LA A2 area: 17.0 cm2 RA long axis: 4.1 cm LA A4 area: 13.2 cm2 RA area: 13.5 cm2 LA length (vol): 4.1 cm RA vol: 37.3 ml LA vol: 45.9 ml RA : 28.1 ml/m2 LA vol index: 34.5 ml/m2 IVC diam: 1.6 cm RVD1 (basal): 2.8 cm TAPSE: 1.5 cm Doppler Measurements & Calculations Ao V2 max: 122.8 cm/sec LVOT Max David: 67.4 cm/sec Ao V2 mean: 83.1 cm/sec LV V1 max P.8 mmHg Ao max P.0 mmHg LV V1 VTI: 12.6 cm Ao mean P.2 mmHg JENNA(I,D): 1.4 cm2 Ao V2 VTI: 28.6 cm JENNA(V,D): 1.8 cm2 sev ratio: 0.44 JENNA indexed to BSA (cm^2/m^2): 1.1 MV E max david: 111.9 cm/sec TR max david: 333.3 cm/sec MV A max david: 70.7 cm/sec TR max P.4 mmHg MV E/A: 1.6 Med Peak E' David: 8.6 cm/sec E/E' med: 13.1 Lat Peak E' David: 6.4 cm/sec E/E' lat: 17.4 E/e' average: 15.2 MV dec time: 0.16 sec MR ERO: 0.15 cm2 MR PISA: 2.3 cm2 SV(LVOT): 40.4 ml MR flow rate: 86.4 cm3/sec MR PISA radius: 0.61 cm Reading Physician:09:45 AM
--- NOTE | 2021-03-01 16:37 | P.CONS_ITS ---
History of Present Illness Consult details Date Patient Seen: 03/01/21 Time Patient Seen: 16:38 Chief complaint: COPD Reason for consult: Right femoral neck fracture Requesting provider: Brittani Asencio Narrative: The patient is an 80-year-old woman known to me from a prior left hip fracture which had a complicated course. She has a history of significant chronic obstructive pulmonary disease and severe osteoporosis. Yesterday she began to have trouble walking and was seen at the emergency department today with radiographs revealing a femoral neck fracture of the right hip. No fall was involved. 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 Meds Home Medications and Allergies Home Medications Medication Instructions Recorded Confirmed Type AMLODIPINE BESYLATE (#NORVASC) 5 mg PO AC #0 04/15/13 03/01/21 History timolol maleate 1 drp OPHTH HS #5 ml 04/15/13 03/01/21 History Allergies Allergy/AdvReac Type Severity Reaction Status Date / Time clindamycin [CLINDAMYCIN] Allergy Mild RASH Verified 03/01/21 12:15 rosuvastatin [ROSUVASTATIN] Allergy Mild ACHING Verified 03/01/21 12:15 MUSCLES Review of Systems Review of Systems ROS: Yes All systems reviewed with the patient and are negative except as otherwise documented Exam Vital Signs (past 8 hours): - 03/01/21 09:25 03/01/21 11:20 03/01/21 13:01 Temperature 98.2 F Pulse Rate 101 H 106 H 103 H Respiratory Rate 24 24 21 Blood Pressure 149/68 H 146/68 H 146/66 H Pulse Oximetry 100 94 94 03/01/21 14:59 03/01/21 16:00 Temperature 98.3 F 98.8 F Pulse Rate 107 H 94 H Respiratory Rate 16 12 Blood Pressure 133/77 115/76 Pulse Oximetry 97 99 Oxygen Delivery Method Nasal Cannula Oxygen Flow Rate 2 Narrative Exam Narrative: The patient is lying comfortably in bed. She has mild pain with rotation of her hip on the right. She has essentially no pain with moderate pressure on the distal femur and proximal tibia. Her calf is soft. Light touch is intact throughout the right foot and dorsiflexion and plantar flexion of the of the toes is intact. Objective Labs Result Diagrams: 03/01/21 11:25 03/01/21 11:25 Labs: Laboratory Results - last 24 hr 03/01/21 03/01/21 03/01/21 10:25 11:25 11:25 WBC 10.0 RBC 4.22 Hgb 12.2 Hct 37.2 MCV 88.0 MCH 28.9 MCHC 32.8 RDW 16.2 H Plt Count 316 Neut % (Auto) 93.9 H Lymph % (Auto) 3.8 L [place] % (Auto) 1.6 L Eos % (Auto) 0.3 L Baso % (Auto) 0.4 Neut # (Auto) 9400 H Lymph # (Auto) 400 L [place] # (Auto) 200 Eos # (Auto) 0 Baso # (Auto) 0 PT 12.1 INR 1.1 APTT 30 Sodium Potassium Chloride Carbon Dioxide BUN Creatinine Estimated GFR BUN/Creatinine Ratio Glucose Lactate Calcium Magnesium Total Bilirubin AST ALT Alkaline Phosphatase Total Creatine Kinase CK-MB (CK-2) CK-MB (CK-2) Rel Index Troponin I NT-Pro-B Natriuret Pep Total Protein Albumin Globulin Albumin/Globulin Ratio Procalcitonin Urine RBC Urine WBC Urine Bacteria Ur Culture Indicated? SARS-CoV-2 (PCR) Negative 03/01/21 03/01/21 03/01/21 11:25 11:25 12:20 WBC RBC Hgb Hct MCV MCH MCHC RDW Plt Count Neut % (Auto) Lymph % (Auto) [place] % (Auto) Eos % (Auto) Baso % (Auto) Neut # (Auto) Lymph # (Auto) [place] # (Auto) Eos # (Auto) Baso # (Auto) PT INR APTT Sodium 132 L Potassium 3.8 Chloride 92 L Carbon Dioxide 27 BUN 21 H Creatinine 0.61 Estimated GFR > 60.0 BUN/Creatinine Ratio 34.4 H Glucose 151 H Lactate 3.3 H Calcium 9.6 Magnesium 1.9 Total Bilirubin 1.2 AST 36 ALT 21 Alkaline Phosphatase 128 H Total Creatine Kinase 150 H CK-MB (CK-2) 1.72 CK-MB (CK-2) Rel Index 1.1 L Troponin I < 0.012 NT-Pro-B Natriuret Pep 1580 H Total Protein 7.4 Albumin 3.7 Globulin 3.7 Albumin/Globulin Ratio 1.0 Procalcitonin 0.09 Urine RBC 1-5/hpf Urine WBC 5-10/hpf H Urine Bacteria None seen Ur Culture Indicated? Specimen cultured SARS-CoV-2 (PCR) 03/01/21 13:45 WBC RBC Hgb Hct MCV MCH MCHC RDW Plt Count Neut % (Auto) Lymph % (Auto) [place] % (Auto) Eos % (Auto) Baso % (Auto) Neut # (Auto) Lymph # (Auto) [place] # (Auto) Eos # (Auto) Baso # (Auto) PT INR APTT Sodium Potassium Chloride Carbon Dioxide BUN Creatinine Estimated GFR BUN/Creatinine Ratio Glucose Lactate 2.9 H Calcium Magnesium Total Bilirubin AST ALT Alkaline Phosphatase Total Creatine Kinase CK-MB (CK-2) CK-MB (CK-2) Rel Index Troponin I NT-Pro-B Natriuret Pep Total Protein Albumin Globulin Albumin/Globulin Ratio Procalcitonin Urine RBC Urine WBC Urine Bacteria Ur Culture Indicated? SARS-CoV-2 (PCR) Radiographs from the Emergency Department are reviewed today. These reveal a displaced femoral neck fracture on the right. Incidental note is made of a hemiarthroplasty with a large non cemented stem on the left side. In addition there is a cerclage wire around the greater trochanter. This appears to be well positioned. Radiographs of the right knee reveal intramedullary callus fo rmation in horizontal fractures of the distal femur and proximal tibia. These are nondisplaced and her likely insufficiency fractures with partial healing. Assessment & Plan Assessment & Plan narrative: The patient is a pleasant 80-year-old woman with a history of severe osteoporosis and significant chronic obstructive pulmonary disease. She has a displaced fracture of the right femoral neck which will require hemiarthroplasty. About 5-6 years ago she had an intertrochanteric fracture on the left which was treated with a sliding hip screw construct which cut out and needed to be replaced with a hemiarthroplasty on that side as well. We have discussed the risks benefits and alternatives to hemiarthroplasty. She is aware that there is essentially no viable alternative. Risks discussed included but were not limited to: Iatrogenic fracture, leg length discrepancy, nerve damage, deep venous thrombosis, pulmonary embolism, stroke, myocardial infarction, permanent paralysis and . Due to the patient's NPO status surgery will be done tomorrow morning at 8:00 a.m. in the morning. She will be NPO after midnight. COVID-19 COVID-19 status: Negative Result date/Date tested (Pos, Neg/Pending): 03/01/21 Time Spent With Patient Time with patient: 15-24 minutes
[2021-03-01 18:45] LABS: Lactate (Lactic Acid) 2.1 mmol/L (0.7-2.1)
[2021-03-01 18:58] LABS: Troponin I < 0.012 ng/mL (0.01-0.034)
[2021-03-01] MEDS: CEFTRIAXONE 1 GM/50 ML FROZ.PIGGY IV (20:06)
[2021-03-01] MEDS: AZITHROMYCIN 500 MG in DEXTROSE 5% IN WATER 250 ML IV (20:07)
[2021-03-01 20:29] LABS: Reflexed Lactate in 2 Hours Y
--- NOTE | 2021-03-01 20:55 | P.HP_ITS ---
History of Present Illness History of Present Illness Date Patient Seen: 03/01/21 Time Patient Seen: 14:55 Chief complaint: COPD Narrative: Ms. Llamas is an 80W with PMH of rheumatoid arthritis, osteoporosis, COPD who comes in with right leg pain. She notes that she had mild pain in her right thing but that became severe. She had no trauma to the leg. Her pain is p rimarily in the right hip. She also has had shortness of breath which she stated was at her basesline. However, she was noted to have oxygen saturation in the 80s and placed on oxygen. She is not having any fevers or chills, she is having some coughing. She is usually able to walk with a walker at home, and uses a lift for assistance. Today she was unable to bear weight due to pain so she came in to the emergency room. In the ER she was found to have initially a mild tachycardia. She was requiring 8L of oxygen but this was quickly decreased to 2L. Her chest xray showed interstitial prominence. Hip xray showed displaced right femoral neck fracture. Knee xray showed chronic fractures of the femur and tibia. She was given pain medications, IV lasix, nebulizers and admitted for further treatment. Patient History Medical History Rheumatoid arthritis Tobacco abuse Surgical History History of left hip replacement Family & Social History Social History: household members none Prior Living Arrangements House Safety & Behavioral: Feels Safe in Current Yes Environment Been Physically Hurt or No Threatened By a Person Suicidal Ideation Description None Suicide Plan Description No Plan Tobacco & Substance use: Smoking Status Former smoker alcohol intake current alcohol intake frequency 0-2 drinks per day Substance Use Type does not use Meds Home Medications and Allergies Home Medications Medication Instructions Recorded Confirmed Type AMLODIPINE BESYLATE (#NORVASC) 5 mg PO AC #0 04/15/13 03/01/21 History timolol maleate 1 drp OPHTH HS #5 ml 04/15/13 03/01/21 History Allergies Allergy/AdvReac Type Severity Reaction Status Date / Time clindamycin [CLINDAMYCIN] Allergy Mild RASH Verified 03/01/21 12:15 rosuvastatin [ROSUVASTATIN] Allergy Mild ACHING Verified 03/01/21 12:15 MUSCLES Review of Systems Review of Systems Narrative: 14 systems reviewed and negative aside from what is noted in HPI Exam Vital Signs (past 8 hours): - 03/01/21 13:01 03/01/21 14:59 03/01/21 16:00 Temperature 98.3 F 98.8 F Pulse Rate 103 H 107 H 94 H Respiratory Rate 21 16 12 Blood Pressure 146/66 H 133/77 115/76 Pulse Oximetry 94 97 99 Oxygen Delivery Method Nasal Cannula Oxygen Flow Rate 2 Narrative Exam Narrative: GEN: no acute distress HEENT: PERRL, moist mucous membranes NECK: no jvd, trachea midline CV: regular rate and rhythm with no murmurs PULM: wheezes bilaterally ABD: soft, nontender, no organomegaly, normal bowel sounds EXT: warm and well perfused, R leg rotate with pain on palpation of hip, R knee with no pain to palpation SKIN: no rashes noted NEURO: awake and alert, moving all extremities PSYCH: cooperative, pleasant Objective Labs Result Diagrams: 03/01/21 11:25 03/01/21 11:25 Labs: Laboratory Results - last 24 hr 03/01/21 03/01/21 03/01/21 10:25 11:25 11:25 WBC 10.0 RBC 4.22 Hgb 12.2 Hct 37.2 MCV 88.0 MCH 28.9 MCHC 32.8 RDW 16.2 H Plt Count 316 Neut % (Auto) 93.9 H Lymph % (Auto) 3.8 L [place] % (Auto) 1.6 L Eos % (Auto) 0.3 L Baso % (Auto) 0.4 Neut # (Auto) 9400 H Lymph # (Auto) 400 L [place] # (Auto) 200 Eos # (Auto) 0 Baso # (Auto) 0 PT 12.1 INR 1.1 APTT 30 Sodium Potassium Chloride Carbon Dioxide BUN Creatinine Estimated GFR BUN/Creatinine Ratio Glucose Lactate Calcium Magnesium Total Bilirubin AST ALT Alkaline Phosphatase Total Creatine Kinase CK-MB (CK-2) CK-MB (CK-2) Rel Index Troponin I NT-Pro-B Natriuret Pep Total Protein Albumin Globulin Albumin/Globulin Ratio Procalcitonin Urine RBC Urine WBC Urine Bacteria Ur Culture Indicated? SARS-CoV-2 (PCR) Negative 03/01/21 03/01/21 03/01/21 11:25 11:25 12:20 WBC RBC Hgb Hct MCV MCH MCHC RDW Plt Count Neut % (Auto) Lymph % (Auto) [place] % (Auto) Eos % (Auto) Baso % (Auto) Neut # (Auto) Lymph # (Auto) [place] # (Auto) Eos # (Auto) Baso # (Auto) PT INR APTT Sodium 132 L Potassium 3.8 Chloride 92 L Carbon Dioxide 27 BUN 21 H Creatinine 0.61 Estimated GFR > 60.0 BUN/Creatinine Ratio 34.4 H Glucose 151 H Lactate 3.3 H Calcium 9.6 Magnesium 1.9 Total Bilirubin 1.2 AST 36 ALT 21 Alkaline Phosphatase 128 H Total Creatine Kinase 150 H CK-MB (CK-2) 1.72 CK-MB (CK-2) Rel Index 1.1 L Troponin I < 0.012 NT-Pro-B Natriuret Pep 1580 H Total Protein 7.4 Albumin 3.7 Globulin 3.7 Albumin/Globulin Ratio 1.0 Procalcitonin 0.09 Urine RBC 1-5/hpf Urine WBC 5-10/hpf H Urine Bacteria None seen Ur Culture Indicated? Specimen cultured SARS-CoV-2 (PCR) 03/01/21 03/01/21 03/01/21 13:45 18:23 18:23 WBC RBC Hgb Hct MCV MCH MCHC RDW Plt Count Neut % (Auto) Lymph % (Auto) [place] % (Auto) Eos % (Auto) Baso % (Auto) Neut # (Auto) Lymph # (Auto) [place] # (Auto) Eos # (Auto) Baso # (Auto) PT INR APTT Sodium Potassium Chloride Carbon Dioxide BUN Creatinine Estimated GFR BUN/Creatinine Ratio Glucose Lactate 2.9 H 2.1 Calcium Magnesium Total Bilirubin AST ALT Alkaline Phosphatase Total Creatine Kinase CK-MB (CK-2) CK-MB (CK-2) Rel Index Troponin I < 0.012 NT-Pro-B Natriuret Pep Total Protein Albumin Globulin Albumin/Globulin Ratio Procalcitonin Urine RBC Urine WBC Urine Bacteria Ur Culture Indicated? SARS-CoV-2 (PCR) Assessment & Plan Assessment & Plan narrative: Ms. Llamas is an 80W with PMH of osteoporosis coming in with R hip pain found to have displaced fracture, also found to have shortness of breath concerning for CHF vs COPD. 1. Acute R hip fracture -no known trauma -ortho consulted and planned for surgery on AM 5/23 -NPO after midnight -pain medications to control pain are ordered 2. Acute hypoxemic respiratory failure from acute COPD exacerbation and probable acute CHF exacerbation - oxygen initially in the 80s - etiology likely multifactorial from CHF and COPD - COPD as patient is coughing and wheezing, started nebulizers, azithromycin, and prednisone - CHF with evidence of pulmonary interstitial prominence, elevated BNP, and ordered for lasix - ordered for ECHO - initially elevated lactate at 3.3 now improved to 1.7 3. UTI -UA positive with cultures pending -ordered for ceftriaxone 4. Chronic R tibia and fibula fracture - no pain currently - appreciate ortho recs of no surgical indication 5. Hypertension -hold home medications for now 6. Rheumatoid arthritis -hold methotrexate for now pending surgery 7. Osteoporosis - noted on imaging - may need medications upon discharge IVF: none Diet: NPO after midnight DVT ppx; Lovenox Code status: DNR, proxy is Claudia Watkins VTE Deep Vein Thrombosis/Pulmonary Embolism Present on Admission: No MIPS - Admit I confirm the patient?s Advance Care Plan is present, Code status is documented, Surrogate decision maker is in patient?s record [If Yes, STOP here]: Yes
[2021-03-01] MEDS: ALBUTEROL/IPRATROPIUM 3 ML AMPUL INH ×2 (20:59→23:20)
[2021-03-01 21:01] LABS: Lactate 2HR (Lactic Acid Rflx) 1.7 mmol/L (0.7-2.1)
[2021-03-02] VITALS (18 sets, daily range): BP systolic 106–139; BP diastolic 50–70; PULSE 77–117; RESP 16–22; TEMP 35.8–36.6; O2SAT 93–100
--- NOTE | 2021-03-02 | DI.RAD.S_ITS ---
PROCEDURE: XR PELVIS 1-2V INDICATIONS: INTER OP TECHNIQUE: Intra-operative view of the pelvis and hip acquired. [facility]EL IF DONE RT 2V, 03/01/2021, 11:56. FINDINGS: Bones: Intraoperative devices prior to placement of arthroplasty prostheses are in expected positions. No fractures or suspicious bony lesions. Soft tissues: Overlying surgical retractors are present, along with other intraoperative changes. A uterine fibroid is incidentally noted. IMPRESSION: Normal intraoperative examination. Dictated by: Aakash Telles M.D. on 03/02/2021 at 9:09 Approved by: Aakash Telles M.D. on 03/02/2021 at 9:09
--- NOTE | 2021-03-02 00:55 | PC.NURSE ---
IV fluids decreased from 150 mL/hr to 75 mL/hr with verbal order via FINANCIAL SERVICES INTERN Nicole.
[2021-03-02 05:16] LABS: Add Manual Diff / Slide Review NO; Basophils Absolute Auto 0 /uL (0-100); Basophils Percent Auto 0.2 % (0-2); Eosinophils Absolute Auto 0 /uL (0-450); Hematocrit 35.3 % (36-46); Hemoglobin 11.6 g/dL (12.0-16.0); Lymphocytes Absolute Auto 500 /uL (1100-4500); Lymphocytes Percent Auto 3.5 % (25-40); Mean Corpuscular Hemoglobin 28.8 PG (26-34); Mean Corpuscular Volume 87.3 fL (80-100); Monocytes Absolute Auto 100 /uL (0-900); Monocytes Percent Auto 0.4 % (3-14); Neutrophils Absolute Auto 13000 /uL (1500-7000); Neutrophils Percent Auto 95.9 % (50-75); Platelet Count 356 X10^3/uL (150-400); Red Blood Cell Count 4.04 X10^6/uL (4.0-5.2); Red Cell Distribution Width 16.1 % (11.6-14.8); White Blood Cell Count 13.5 X10^3/uL (4.5-11.0)
--- NOTE | 2021-03-02 05:18 | PC.NURSE ---
Patient resting in bed comfortable. Patient is Alert and oriented to person, place, and situation but patient was asking for radio and touch lamp that she insisted she brought with her and had at her bedside all night.
[2021-03-02 05:24] LABS: BUN Creatinine Ratio 31.5 (6-22); Blood Urea Nitrogen 17 mg/dL (7-17); Calcium 8.6 mg/dL (8.4-10.2); Carbon Dioxide 30 mmol/L (22-32); Chloride 92 mmol/L (98-107); Estimated Glomerular Filt Rate > 60.0 mL/min (>60); Glucose 135 mg/dL (80-110); HEMOLYSIS < 15 (0-50); Potassium 3.3 mmol/L (3.4-5.1); Sodium 131 mmol/L (137-145)
[2021-03-02] MEDS: SODIUM CHLORIDE 0.9% 1,000 ML 75 ML IV (06:35)
[2021-03-02] MEDS: ALBUTEROL/IPRATROPIUM 3 ML AMPUL INH (07:14)
[2021-03-02] MEDS: LACTATED RINGERS 1,000 ML 42 ML IV (08:05)
[2021-03-02] MEDS: CEFAZOLIN 1 GM VIAL IV (08:30)
[2021-03-02] MEDS: TRANEXAMIC ACID 1,000 MG VIAL 2000 MG INJ ×2 (08:38→09:40)
--- NOTE | 2021-03-02 08:53 | SUR.OPER ---
Lateral on padded OR bed. Gel axillary roll. Arms secured on padded armboard with pillow supporting top arm. Gel pad under left arm. Padded hip positioner braces x4 - anterior and posterior chest and pelvis. Additional gel pad used anterior pelvis. Gel pad under bottom leg from knee to foot and secured with tape over sheet.
[2021-03-02] MEDS: BUPIVACAINE 0.5% W/ EPI (PF) 30 ML VIAL INJ (09:21)
--- NOTE | 2021-03-02 10:09 | P.OP_ITS ---
Operative Date/Time/Diagnoses Date of procedure: 03/02/21 Time of procedure: 10:09 Pre-op diagnosis: Right femoral neck fracture Post-op diagnosis: same Procedure & Clinicians Procedure: Right hip hemiarthroplasty Same procedure as scheduled: Yes Indications: The patient developed difficulty ambulating without a fall. Radiographs revealed a right femoral neck fracture. The risks, benefits and alternatives to surgery were discussed with the patient prior to proceeding. Risks discussed included, but were not limited to, failure to relieve pain, leg length discrepancy, dislocation, stiffness, infection, nerve damage, deep venous thrombosis, pulmonary embolism, stroke, coma, heart attack, permanent paralysis and , as well as the potential need for eventual revision of the prosthetic. Surgeon: Hardik Shearer Envelope Patternmaker: Tristen Lyman Click Yes if Unassisted: No Anesthesia Type: General, Spinal and Local Operative Notes Findings: Subcapital femoral neck fracture with displacement and extremely osteoporotic bone with a large femoral canal. Closure Type: primary Specimen(s): none sent Prosthetic devices, grafts, tissues, transplants, or devices: Implants used in this procedure were manufactured by the [employer] and included a size 14 Synergy cemented stem with a 13 mm distal cement centralizer, a +0 adapter sleeve and a 47 mm Tandem unipolar femoral head. Applied: catheter and implant(s) Estimated Blood Loss (mL): 100 Blood products transfused: none Procedure in detail: The patient was seen in the pre-operative area, where they identified the right hip as the operative site and this was marked with my initials. The patient received pre-operative antibiotics and was taken to the operating room and placed on the operative table in the left lateral decubitus position after satisfactory general anesthesia. A spinal anesthetic was then performed. A laboratory technology teacher out was performed. The right leg was prepared from the ankle to the iliac crest with ChloroPrep in the usual fashion and draped through sterile drapes. The hip was approached through an approximately 15 cm incision centered over the greater trochanter and curving gently posteriorly as it went proximally. This was carried sharply to the fascia loni, which was divided and retracted with a self-retaining retractor. The trochanteric bursa was excised with care being taken to avoid the sciatic nerve, which was identified and protected throughout the case. The short external rotators were incised and the capsulomuscular flap was raised and tagged for later repair. The femoral head was removed with a ?corkscrew?, and the femoral neck osteotomy performed approximately 15 mm above the lesser trochanter. A trial femoral head placed to confirm the size of the ball. We then turned our attention to the femur. The canal was opened with a box cutting osteotome, followed by a T handled reamer. The broaches were used, sequentially enlarging until a good fit was obtained. Due to the severe osteoporosis, I elected to cement the final stem in place before trialing to prevent potential iatrogenic fracture with the broach in place. The canal was prepared by placing a distal cement plug. The pulsatile lavage was used followed by an epinephrine-soaked sponge for hemostasis. Cement was then retrograde injected and pressurized. The final stem was then impacted into the prepared femoral canal. A trial head and neck were then placed and the hip relocated and checked for leg length and stability. The patient was stable in the position of sleep, of squatting, and could be put through a range of motion with 45 degrees internal rotation without dislocation. At 90 degrees flexion, internal rotation to in excess of 70? was possible before dislocation. This was felt to be satisfactory and the appropriate components were opened, and the trials were removed. Finally the femoral head was impacted onto the stem. The acetabulum was cleared of all material and the hip relocated one final time. Radiographs were obtained intra-operatively confirming the position of all components and confirming that there were no iatrogenic fractures. The capsulomuscular flap was then repaired to the greater trochanter though an awl hole using the tag sutures. The short external rotators were repaired with a running 0 Vicryl. The fascia loni was closed with running and interrupted 0 Vicryl. The subcutaneous layer was closed with interrupted 3-0 Vicryl, and the skin with crista. The tissues around the incision were injected with 0.5% Marcaine for postoperative pain control. An Aquacel Ag dressing was applied and the patient was taken to recovery having tolerated the procedure well. Complications: none Post-operative Condition: stable Disposition: PACU Plan for aftercare: The patient will be maintained on posterior hip precautions and will be allowed to weight bear as tolerated. She will be discharged either home or to [facility] within the next several days depending on how well she progresses with physical therapy.
--- NOTE | 2021-03-02 11:03 | CM.DANOTE ---
Addendum entered by Ashtyn Morrell R.N. 03/02/21 15:41: Was able to meet with patient in her room after her surgery. Patient is pleasant, alert and oriented. Confirmed that she resides here in [place] alone, but does have a sister named Griselda Damian, who lives near by. Patient confirmed that she uses a walker at home. Discussed discharge planning, should she need any type of skilled rehab before going home. Brought in a Medicare Choice List. Stated, she has been across the street before when it was [facility], and if she needs it, would go back again. Elana at [facility] has already accepted patient. She would be eligible by Wednesday. She has not yet worked with P.T. Went ahead and completed PASSR. Original Note: DCP: Case received, EMR reviewed. Patient is currently in surgery. Placed name of this DC Sql Server Developer on board of room. Was able to obtain some information on patient from nurse, Celestina, as well as information in H&P. DCP assessment completed with information currently available. Patient is an 80 year old female who admitted yesterday afternoon to the care of the hospitalist team. PCP: Dr. Ilana Frances. Payer: confirmed: Medicare/[facility]. Patient came to the hospital via ambulance secondary to having increased pain, unable to bear weight. [place] has history of osteoporosis. She was diagnosed with displaced right femoral neck fracture. She is currently having surgery. Patient also has history of COPD. According to notes, patient uses a walker at home, but also has a lift assist out of bed. History also indicates that patient's sister is also her caregiver, and assists her, but patient lives alone. She lives here in [place]. Patient most likely does not drive. P: DCP to attempt to meet with patient later today. Tien in UR will review to see if she can make inpatient status, since she is Medicare. Went ahead and faxed over the referral to [facility]. Called and updated Elana, who is in admissions at [facility] today. She will look at referral. Ashtyn Morrell RN/Home Service Consultant
[2021-03-02 12:05] LABS: Alanine Aminotransferase 23 IU/L (<35)
--- NOTE | 2021-03-02 12:07 | SUR.PHASEI ---
Late entry: stable PACU stay, pt transported up to room on room air. )2 sats initially low, returned to normal with in 10 minutes, lungs clear, RR20. Pt left in stable condition, bed low, locked SCD's on and call light in reach.
[2021-03-02] MEDS: OXYCODONE IR 5 MG TABLET PO (13:00)
--- NOTE | 2021-03-02 14:58 | PC.NURSE ---
RECEIVED PT BACK POST OP TO ROOM 224- AQUACELL DRESSING CDI TO RIGHT HIP + CMS TO RLE- C/O SOME DISCOMFORT - MEDICATED WITH 1 OXYCODONE-which seemed effective - burton patent changed diet ot mech soft for ease of swallowing to pt
--- NOTE | 2021-03-02 15:24 | P.PN_ITS ---
Subjective Subjective Date Patient Seen: 03/02/21 Time Patient Seen: 07:24 Interval history: Today she feels her pain is well controlled when she has no movement. She has pain with movement. Her breathing is improved and she feels that she is at her baseline now with minimal shortness of breath. Exam Vital Signs (past 8 hours): - 03/02/21 08:00 03/02/21 10:02 03/02/21 10:07 Temperature 97.9 F 97.9 F Pulse Rate 93 H 90 87 Respiratory Rate 17 16 18 Blood Pressure 139/67 113/53 L 106/55 L Pulse Oximetry 98 100 100 03/02/21 10:12 03/02/21 10:17 03/02/21 10:26 Temperature 97.8 F Pulse Rate 87 83 90 Respiratory Rate 18 18 19 Blood Pressure 116/60 128/62 132/63 Pulse Oximetry 100 100 97 03/02/21 10:42 03/02/21 10:48 03/02/21 11:18 Temperature 97.9 F 97.5 F L 97.5 F L Pulse Rate 86 90 77 Respiratory Rate 18 17 18 Blood Pressure 126/70 109/61 123/64 Pulse Oximetry 97 93 94 03/02/21 11:48 03/02/21 12:48 03/02/21 14:08 Temperature 97.6 F 97.4 F L 97.5 F L Pulse Rate 117 H 98 H 86 Respiratory Rate 18 18 18 Blood Pressure 126/60 137/60 125/65 Pulse Oximetry 97 99 99 Fraction of Inspired Oxygen 24 Oxygen Delivery Method Room Air Oxygen Flow Rate 2 Narrative Exam Narrative: GEN: no acute distress HEENT: PERRL, moist mucous membranes NECK: no jvd, trachea midline CV: regular rate and rhythm with no murmurs PULM: clear bilaterally ABD: soft, nontender, no organomegaly, normal bowel sounds EXT: warm and well perfused, R leg rotate with pain on palpation of hip, R knee with no pain to palpation SKIN: no rashes noted NEURO: awake and alert, moving all extremities PSYCH: cooperative, pleasant Objective Labs Result Diagrams: 03/02/21 05:11 03/02/21 05:12 Labs: Laboratory Results - last 24 hr 03/01/21 03/01/21 03/01/21 18:23 18:23 20:45 WBC RBC Hgb Hct MCV MCH MCHC RDW Plt Count Neut % (Auto) Lymph % (Auto) [place] % (Auto) Eos % (Auto) Baso % (Auto) Neut # (Auto) Lymph # (Auto) [place] # (Auto) Eos # (Auto) Baso # (Auto) Sodium Potassium Chloride Carbon Dioxide BUN Creatinine Estimated GFR BUN/Creatinine Ratio Glucose Lactate 2.1 1.7 Calcium ALT Troponin I < 0.012 03/02/21 03/02/21 03/02/21 05:11 05:12 11:35 WBC 13.5 H RBC 4.04 Hgb 11.6 L Hct 35.3 L MCV 87.3 MCH 28.8 MCHC 33.0 RDW 16.1 H Plt Count 356 Neut % (Auto) 95.9 H Lymph % (Auto) 3.5 L [place] % (Auto) 0.4 L Eos % (Auto) 0.0 L Baso % (Auto) 0.2 Neut # (Auto) 39293 H Lymph # (Auto) 500 L [place] # (Auto) 100 Eos # (Auto) 0 Baso # (Auto) 0 Sodium 131 L Potassium 3.3 L Chloride 92 L Carbon Dioxide 30 BUN 17 Creatinine 0.54 Estimated GFR > 60.0 BUN/Creatinine Ratio 31.5 H Glucose 135 H Lactate Calcium 8.6 ALT 23 Troponin I [facility] Medical History Rheumatoid arthritis Tobacco abuse Surgical History History of left hip replacement Social History household members: none Smoking Status: Former smoker alcohol intake: current Assessment & Plan Assessment & Plan narrative: Ms. Llamas is an 80W with PMH of osteoporosis coming in with R hip pain found to have displaced fracture, also found to have shortness of breath concerning for CHF vs COPD. 1. Acute R hip fracture -no known trauma -ortho consulted and planned for surgery on AM 03/02 -NPO after midnight -pain medications to control pain are ordered 2. Acute hypoxemic respiratory failure from acute COPD exacerbation and probable acute CHF exacerbation - oxygen initially in the 80s - etiology likely multifactorial from CHF and COPD - COPD as patient is coughing and wheezing, started nebulizers, azithromycin, and prednisone - CHF with evidence of pulmonary interstitial prominence, elevated BNP, and ordered for lasix - ordered for ECHO - initially elevated lactate at 3.3 now improved to 1.7 - careful with IV fluids given initial presentation 3. UTI -UA positive with cultures showed mixed mary -repeat UA to see if clean specimen -ordered for ceftriaxone, and will continue for now 4. Chronic R tibia and fibula fracture - no pain currently - appreciate ortho recs of no surgical indication 5. Hypertension -hold home medications for now 6. Rheumatoid arthritis -hold methotrexate for now pending surgery 7. Osteoporosis - noted on imaging - may need medications upon discharge IVF: none Diet: NPO after midnight DVT ppx; Lovenox Code status: DNR, proxy is Claudia Watkins VTE Deep Vein Thrombosis/Pulmonary Embolism Present on Admission: No
[2021-03-02] MEDS: POTASSIUM CHLORIDE 20 MEQ TAB 40 MEQ PO (16:01)
[2021-03-02] MEDS: ACETAMINOPHEN 325 MG TABLET 650 MG PO ×2 (16:02→20:55)
--- NOTE | 2021-03-02 16:10 | PT-IP ANOTE ---
Met with pt to initiate evaluation. She was pleasant and willing to participate though reporting nausea. SpO2 was consistently 69-77% on room air at rest over multiple readings. Nursing to place pt on O2 and PT will follow up morning of 03/03.
[2021-03-02] MEDS: ONDANSETRON 4 MG/2 ML INJ IV (16:22)
[2021-03-02 16:39] LABS: Hematocrit 32.5 % (36-46); Hemoglobin 10.6 g/dL (12.0-16.0); Mean Corpuscular HGB Conc 32.7 % (30-36); Mean Corpuscular Hemoglobin 28.7 PG (26-34); Mean Corpuscular Volume 87.9 fL (80-100); Platelet Count 338 X10^3/uL (150-400); Red Cell Distribution Width 15.5 % (11.6-14.8); White Blood Cell Count 18.4 X10^3/uL (4.5-11.0)
[2021-03-02] MEDS: TIMOLOL 0.5% OPHTH 1 DROPS EYE-BOTH (20:55)
[2021-03-02] MEDS: DOCUSATE 100 MG CAPSULE PO (20:55)
[2021-03-03] VITALS (8 sets, daily range): BP systolic 124–179; BP diastolic 60–82; PULSE 61–105; RESP 14–18; TEMP 36.2–36.7; O2SAT 91–97
[2021-03-03] MEDS: SODIUM CHLORIDE 0.9% 250 ML 500 ML IV (01:00)
[2021-03-03 05:17] LABS: BUN Creatinine Ratio 28.6 (6-22); Blood Urea Nitrogen 22 mg/dL (7-17); Calcium 8.4 mg/dL (8.4-10.2); Carbon Dioxide 30 mmol/L (22-32); Chloride 96 mmol/L (98-107); Estimated Glomerular Filt Rate > 60.0 mL/min (>60); Glucose 90 mg/dL (80-110); HEMOLYSIS < 15 (0-50); Potassium 4.9 mmol/L (3.4-5.1); Sodium 130 mmol/L (137-145)
[2021-03-03 05:19] LABS: Hematocrit 30.1 % (36-46); Hemoglobin 9.8 g/dL (12.0-16.0); Mean Corpuscular HGB Conc 32.6 % (30-36); Mean Corpuscular Hemoglobin 28.7 PG (26-34); Mean Corpuscular Volume 88.3 fL (80-100); Platelet Count 296 X10^3/uL (150-400); Red Blood Cell Count 3.42 X10^6/uL (4.0-5.2); Red Cell Distribution Width 15.8 % (11.6-14.8); White Blood Cell Count 13.4 X10^3/uL (4.5-11.0)
--- NOTE | 2021-03-03 08:03 | P.PN_ITS ---
Subjective Subjective Date Patient Seen: 03/03/21 Time Patient Seen: 08:03 Interval history: Patient reports no pain. No fever or chills. No nausea or vomiting. Exam Vital Signs (past 8 hours): - 03/03/21 01:00 03/03/21 05:00 Temperature 97.5 F L 97.8 F Pulse Rate 61 77 Respiratory Rate 18 18 Blood Pressure 124/61 130/62 Pulse Oximetry 97 93 Fraction of Inspired Oxygen 24 Oxygen Delivery Method Room Air Oxygen Flow Rate 2 Narrative Exam Narrative: Pleasant 80-year-old female resting comfortably in bed in no apparent distress. Right hip dressing is clean, dry and intact. Motor functions intact distal right lower extremity. Sensation grossly intact to li ght touch. Objective Labs Result Diagrams: 03/03/21 04:50 03/03/21 04:50 Labs: Laboratory Results - last 24 hr 03/02/21 03/02/21 03/03/21 11:35 16:30 04:50 WBC 18.4 H 13.4 H RBC 3.70 L 3.42 L Hgb 10.6 L 9.8 L Hct 32.5 L 30.1 L MCV 87.9 88.3 MCH 28.7 28.7 MCHC 32.7 32.6 RDW 15.5 H 15.8 H Plt Count 338 296 Sodium Potassium Chloride Carbon Dioxide BUN Creatinine Estimated GFR BUN/Creatinine Ratio Glucose Calcium ALT 23 03/03/21 04:50 WBC RBC Hgb Hct MCV MCH MCHC RDW Plt Count Sodium 130 L Potassium 4.9 D Chloride 96 L Carbon Dioxide 30 BUN 22 H Creatinine 0.77 Estimated GFR > 60.0 BUN/Creatinine Ratio 28.6 H Glucose 90 Calcium 8.4 ALT PFSH Medical History Rheumatoid arthritis Tobacco abuse Surgical History History of left hip replacement Social History household members: none Smoking Status: Former smoker alcohol intake: current Assessment & Plan Post-op Postoperative Procedures: Procedures Operation Date: 03/02/21 08:00 Actual Procedures Side Surgeon p Hip Hemiarthroplasty Right Hardik Shearer MD Postop day 1. Patient progressing as expected. Mobilize with physical therapy. Posterior hip precautions, weightbearing as tolerated. Disposition 1-2 days depending on progress with physical therapy. Quality VTE Deep Vein Thrombosis/Pulmonary Embolism Present on Admission: No
[2021-03-03] MEDS: ENOXAPARIN 40 MG/0.4 ML SYRINGE SUBCUT (08:33)
[2021-03-03] MEDS: DOCUSATE 100 MG CAPSULE PO ×2 (08:33→21:16)
[2021-03-03] MEDS: ACETAMINOPHEN 325 MG TABLET 650 MG PO ×3 (08:33→21:16)
[2021-03-03] MEDS: SODIUM CHLORIDE 0.9% FLUSH 10 ML IV ×2 (08:39→21:16)
--- NOTE | 2021-03-03 09:16 | PT.IIE ---
Current Diagnoses Pathological fracture, right femur, initial encounter for fracture (03/01/21) Surgery Performed Operation Date: 03/02/21 08:00 Actual Procedures p Hip Hemiarthroplasty(Right) - Hardik Shearer MD Surgical History (Last Reviewed 03/01/21 @ 21:01 by Mark Robison MD) History of left hip replacement Medical History (Last Reviewed 03/01/21 @ 21:01 by Mark Robison MD) Rheumatoid arthritis Tobacco abuse Physical Therapy Inpatient Evaluation/Re-Eval M1 PT/OT-IP Prior Functional Status Start: 03/02/21 12:28 Freq: NEEDED Status: Active Protocol: Document 03/03/21 09:16 AW (Rec: 03/03/21 09:30 AW [id number]) Medical Review Prior Functional Status Medical History Reviewed Yes Communication WNL. Pt is able to make her needs known. Mobility and Gait Pt uses a 4WW for household mobility. I just don't leave the house much. Pt has osteoporosis and evidence of chronic stress fractures but denies history of falls. Activities of Daily Living and IADL's Pt states she is able to complete all dressing tasks. It's slow and difficult but I do it. She typically has SBA for showers and is able to complete all toileting independently. She uses a BSC for nighttime needs. Her sister assists with driving and brings in groceries for her. She also has meals delivered from the [employer]. Prior Functional Level (Other details) Pt and her sister agree pt's memory has declined over the past one year. She's usually very sharp and does crossword puzzles but not any more. Social History Household Members none Living Arrangements House Number of Floors (Floors) One Floor Number of Stairs To Enter/Railing? 2 PIEDAD with left rail ascending Home Environment Standard Height Toilet,Tub/ Shower Doors Home Equipment Four Wheel Walker,Straight Cane,Bedside Commode,Raised Toilet Seat w/Armrests,Lift Recliner,Grab Bars In Shower Additional Social History Comment Pt's older sister, Griselda, lives a few blocks away, is in good health, and provides assist with IADL's and driving . M2 PT-IP Current Condition Start: 03/02/21 12:28 Freq: NEEDED Status: Active Protocol: Document 03/03/21 09:16 AW (Rec: 03/03/21 09:30 AW [id number]) Physical Therapy Current Condition Current Condition Evaluation Date 03/03/21 Treatment Diagnosis displaced R femoral neck fx s/ p hemiarthroplasty; COPD; impaired mobility Onset Date 03/01/21 Precautions Posterior Hip Precautions No Hip Flexion > 90 degrees,No Hip Internal Rotation,No Hip Adduction Other Precautions severe osteoporosis Weight Bearing Status Weight Bearing Status Weight Bear as Tolerated M3 PT-IP Subjective Start: 03/02/21 12:28 Freq: NEEDED Status: Active Protocol: Document 03/03/21 09:16 AW (Rec: 03/03/21 09:30 AW [id number]) Subjective Physical Therapy Visit Type Type Initial Evaluation Visit Start Time 08:40 Visit Stop Time 09:16 Total Visit Minutes 36 Notes Pt's sister was present this morning and contributed partially to history. Physical Therapy Visit Comments Patient Comments Pt is willing to work with PT Patient Goals Pt understands she will likely need SNF for rehab Therapy Pain Assessment Pain When Pain Assessed During Mobility Pain Present Pain Present Pain Reported FLACC Pain Scale Face Occasional grimace/frown Legs Normal position; relaxed Activity Quiet, moves easily Cry No cry (awake or asleep) Consolability Reassurable with touch FLACC Total 2 M4 PT-IP Mobility and Gait Start: 03/02/21 12:28 Freq: NEEDED Status: Active Protocol: Document 03/03/21 09:16 AW (Rec: 03/03/21 09:30 AW [id number]) PT-Bed Mobility Assessment Supine to Sit Supine to Sit Minimal Assistance,1 Person Assistance Scooting Scooting to Edge of Bed Maximum Assistance PT-Transfer Assessment Sit to and From Stand Sit to and from Stand Moderate Assistance,1 Person Assistance,Use of Upper Extremities Equipment Transfer Assistive Device Gait Belt,Front Wheeled Walker Orthotic/Prosthetic Devices or Brace: No Transfers Transfer Destination Chair Transfer Technique Stand Step Pivot Transfer Ability Level of Assist Moderate Assistance,1 Person Assistance,Use of Upper Extremities Comments Mobility Comments Pt was lying in bed as PT arrived. BP slightly elevated with SBP in low 140's. Reported to RN that pt stated she needed her morning meds. PT reviewed precautions with pt and her sister and provided min assist for transition from supine to sitting EOB with frequent cues to avoid bending forward during scoot. BP was stable in sitting. Pt stood from the bed mod A x 1 and was able to clear her feet to march in place with FWW for support. She then transferred to the chair set up on her left side mod A x 1 and needed cues for precautions as she sat. Pt was able to stand from the chair mod A x 1 and sat again. She was positioned there with call light and tray table in reach . Her sister remained in the room. Gait Assessment Comments Gait Comments Pt able to take steps during transfer. Did not ambulate. Stair Climbing Assessment Comments Stair Climbing Comments Not assessed. PT-Balance Assessment Sitting Balance and Reactions Static Sitting Balance Ability Good Dynamic Sitting Balance Ability Fair Standing Balance and Reactions Static Standing Balance Ability Fair Dynamic Standing Balance Ability Fair Device Used FWW M5 PT-IP Objective Assessments Start: 03/02/21 12:28 Freq: NEEDED Status: Active Protocol: Document 03/03/21 09:16 AW (Rec: 03/03/21 09:59 AW [id number]) Orientation Orientation/Cognition Level of Alertness Alert Orientation Name,Month,Place,Situation Language Function Ability No Deficits Noted Safety Awareness Decreased Safety Awareness Memory Description Short Term Impaired Comments Pt admits to memory impairment and requires frequent reminders about posterior hip precautions. Gross Range of Motion Lower Extremity ROM Assessment Right Impaired Strength Lower Extremity Strength Assessment Bilaterally Impaired Hip L 4-/5; R 3-/5 Knee L 4-/5; R 3+/5 Ankle B 4-/5 Sensation Assessment Sensation Gross Sensation WNL Muscle Tone Muscle Tone WNL Yes Other Assessments Other Other Assessments Pt is cachectic and frail- appearing. Pressure injury noted on thoracic spinous process and reported to RN. M6 PT-IP Treatment Start: 03/02/21 12:28 Freq: NEEDED Status: Active Protocol: Document 03/03/21 09:16 AW (Rec: 03/03/21 09:59 AW [id number]) Physical Therapy Treatment Education Education Provided Precautions,Weight Bearing Status,Post-Op Packet,Safety M7 PT-IP Assessment and Plan Start: 03/02/21 12:28 Freq: NEEDED Status: Active Protocol: Document 03/03/21 09:16 AW (Rec: 03/03/21 09:59 AW [id number]) PT Summary Assessment and Plan Potential Rehabilitation Potential Fair Status of Condition at Evaluation Evolving Summary Impairments Pain,ROM,Strength,Balance, Cognition,Bed Mobility, Transfers,Gait,Activity Tolerance Assessment Summary Marlene is an 80 yo woman with pathological fracture of the right femoral neck s/p hemiarthroplasty. She also has incidental findings of chronic stress/insufficiency fractures of the distal femur and proximal tibia. Pt denies history of falls. PLOF: Pt states her mobility has declined significantly over the past year. She ambulates household distances with 4WW. CLOF: Pt now requiring mod assist with all mobility using FWW. She also needed frequent reminders to maintain posterior hip precautions. Pt will SNF rehab to improve strength, to reduce risks associated with immobility, and to improve her mobility independence. Goals Bed Mobility Goal Standby Assistance Transfer Goal Standby Assistance,Front Wheeled Walker Gait Goal Standby Assistance,Front Wheel Walker Gait Distance 75 Days to Meet Goals 10 Frequency of Treatment Frequency Of Treatment Twice a Day Treatment Plan Physical Therapy Treatment Plan Bed Mobility Training,Transfer Training,Gait Training, Therapeutic Exercise,Balance Retraining,Post Op Education, Discharge Planning,Hot or Cold Pack,Neuromuscular Re-ed Other Recommendations and Next Treatment review precautions; transfers; Focus gait training with FWW Precautions Posterior Hip Precautions No Hip Flexion > 90 degrees,No Hip Internal Rotation,No Hip Adduction Other Precautions severe osteoporosis Recommendations To Nursing Amount of Assist Needed 1 Person Assist Discharge Recommendations PT Discharge Recommendations SNF Rehab Equipment Needed for Home Before defer to subacute rehab Discharge setting Transportation Needs at Discharge Wheelchair/Cabulance
[2021-03-03 09:26] LABS: Hepatitis B Surf Ab Qualitativ Non Reactive (.)
--- NOTE | 2021-03-03 14:07 | DIET.PN ---
Dietary Progress Note Assessment: 80y F c pmhx of rheumatoid arthritis, osteoporosis, COPD admitted for right leg pain found to have displaced R femoral neck fracture referred to nutrition for severe decline in PO intake. Pt and her sister Griselda present for consultation. Pt states her baseline weight is 110# and over one year ago suddenly dropped to 90# where she has been holding steady for the past 1y. During this hospital stay pts POs averaging 10-25% of trays, however she states this is normal volume for her. Pt is dairy intolerant and uses fortified almond milk as calcium source, likely inadequate intake as imaging shows osteoporosis and chronic stress fractures to legs. Pts feeding hx complicated by COPD and reported hiatal hernia and swallowing issues. Pt blenderizes most foods at home and only tolerates small portions at one time. Pt's sister grocery shops for her and she receives frozen meals from [employer]. Pt has been homebound x1y secondary to global pandemic. NFPE shows moderate to severe muscle and fat wasting system wide, especially evident around clavicles, humoral head, ribs, and lower legs. Usual Day: B: 2 slice toast c butter or PB L: tuna or shrimp salad c crackers D: frozen dinner blenderized April: water, tea, coffee HT: 152.4cm WT: 40.8kg (-19% in 1.5y) UBW:50kg BMI: 17.6 (severe for age) Nutrition Diagnosis: 1. Severe Chronic Malnutrition r/t difficulty eating aeb BMI 17.6, 19% unintentional weight loss x18mo with inability to replete, pt has hiatal hernia c swallow issues and COPD increasing difficulty c POs, pt blenderizes food at home, osteoporosis c numerous stress fractures c acute femoral fracture and NFPE shows moderate muscle and fat wasting. 2. Inadequate mineral intake (calcium) r/t dairy intolerance and avoidance aeb pt gets constipated c dairy intake so avoids it, substitutes fortified almond milk, pts usual intake meeting <50% calcium needs, pt does not drink ONS or supplement c calcium or MVI, pt admitted for femoral neck fracture secondary to osteoporosis c numerous chronic stress fractures. Interventions: 1. To address low dietary calcium intake, recc pt start MVI and calcium or bone support supplement as dietary intake inadequate of needs in addition to food based calcium sources. 2. To support malnourished state, recc pt start eating small frequent meals focusing on high protein and high plant fat intake to help replete body weight. Pt will increase intake peanut butter by consuming it on a spoon twice daily in addition to meals. Diet Order: Dysphagia puree (per pt preference) EER: 1400 kcal (35kcal/kg per PCM), 60g PRO (1.5g/kg per PCM) Monitoring/Evaluations: POs
--- NOTE | 2021-03-03 14:30 | PT.IPTN ---
Current Diagnoses Pathological fracture, right femur, initial encounter for fracture (03/01/21) Surgery Performed Operation Date: 03/02/21 08:00 Actual Procedures p Hip Hemiarthroplasty(Right) - Hardik Shearer MD Physical Therapy Treatment Note M2 PT-IP Current Condition Start: 03/02/21 12:28 Freq: NEEDED Status: Active Protocol: Document 03/03/21 09:16 AW (Rec: 03/03/21 09:30 AW [id number]) Physical Therapy Current Condition Current Condition Evaluation Date 03/03/21 Treatment Diagnosis displaced R femoral neck fx s/ p hemiarthroplasty; COPD; impaired mobility Onset Date 03/01/21 Precautions Posterior Hip Precautions No Hip Flexion > 90 degrees,No Hip Internal Rotation,No Hip Adduction Other Precautions severe osteoporosis Weight Bearing Status Weight Bearing Status Weight Bear as Tolerated M3 PT-IP Subjective Start: 03/02/21 12:28 Freq: NEEDED Status: Active Protocol: Document 03/03/21 14:30 AW (Rec: 03/03/21 15:08 AW [id number]) Subjective Physical Therapy Visit Type Type Treatment Note Visit Start Time 14:04 Visit Stop Time 14:30 Total Visit Minutes 26 Notes Pt's sister was in the room during treatment Number of ASSISTIVE TECHNOLOGY TRAINER Visits 0 Physical Therapy Visit Comments Patient Comments Pt is willing to work with PT Therapy Pain Assessment Pain When Pain Assessed During Mobility Pain Present Pain Present Pain Reported Location Right Upper Leg Scale Used not quantified Pain Management Techniques Re-positioning,Timing of Activity with Medications M4 PT-IP Mobility and Gait Start: 03/02/21 12:28 Freq: NEEDED Status: Active Protocol: Document 03/03/21 14:30 AW (Rec: 03/03/21 15:08 AW [id number]) PT-Transfer Assessment Sit to and From Stand Sit to and from Stand Moderate Assistance,1 Person Assistance,Use of Upper Extremities Equipment Transfer Assistive Device Gait Belt,Front Wheeled Walker Orthotic/Prosthetic Devices or Brace: No Transfers Transfer Destination Chair,Toilet Transfer Technique Stand Step Pivot Transfer Ability Level of Assist Moderate Assistance,1 Person Assistance,Use of Upper Extremities Comments Mobility Comments Pt was sitting up in the chair as PT arrived. Bella catheter had been removed and pt asked to use the toilet. She did not recall any of her hip precautions and needed constant verbal and tactile cues to keep from leaning forward as she scooted on the chair. She stood mod assist and used the FWW to ambulate to the toilet min assist. She transferred mod assist and cues for posterior precautions . She voided and completed pericare with cues to limit forward bend. She stood with heavy use of grab bar and mod assist; RN provided pericare with wet washcloth for completeness. Pt ambulated back to the chair min assist and sat on the chair mod assist and cues. Pt was positioned with call light and tray table in reach, chair alarm on. Gait Assessment Gait Gait Assistance Required: Minimum Assistance,1 Person Assist Distance (Feet) 10 Able to Maintain Weight Bearing Status Yes During Gait Assistive Devices Assistive Device Gait Belt,Front Wheeled Walker Orthotic/Prosthetic Devices or Brace: No Gait Deviations General Gait Pattern Antalgic,Decreased Stride Length,Decreased Feet Clearance,Flexed Trunk,Step-to Gait Factors Limiting Gait Function Factors Limiting Gait Function Decreased Activity Tolerance, Decreased Strength,Difficulty Following Directions,Limited Range of Motion,Pain,Poor Balance,Poor Safety Awareness Comments Gait Comments Pt able to ambulate with min assist and FWW but requires constant cues for safety awareness and precautions. PT-Balance Assessment Sitting Balance and Reactions Static Sitting Balance Ability Good Dynamic Sitting Balance Ability Fair Standing Balance and Reactions Static Standing Balance Ability Fair Dynamic Standing Balance Ability Fair Device Used FWW M5 PT-IP Objective Assessments Start: 03/02/21 12:28 Freq: NEEDED Status: Active Protocol: Document 03/03/21 09:16 AW (Rec: 03/03/21 09:59 AW [id number]) Orientation Orientation/Cognition Level of Alertness Alert Orientation Name,Month,Place,Situation Language Function Ability No Deficits Noted Safety Awareness Decreased Safety Awareness Memory Description Short Term Impaired Comments Pt admits to memory impairment and requires frequent reminders about posterior hip precautions. Gross Range of Motion Lower Extremity ROM Assessment Right Impaired Strength Lower Extremity Strength Assessment Bilaterally Impaired Hip L 4-/5; R 3-/5 Knee L 4-/5; R 3+/5 Ankle B 4-/5 Sensation Assessment Sensation Gross Sensation WNL Muscle Tone Muscle Tone WNL Yes Other Assessments Other Other Assessments Pt is cachectic and frail- appearing. Pressure injury noted on thoracic spinous process and reported to RN. M6 PT-IP Treatment Start: 03/02/21 12:28 Freq: NEEDED Status: Active Protocol: Document 03/03/21 14:30 AW (Rec: 03/03/21 15:08 AW [id number]) Physical Therapy Treatment Education Education Provided Precautions,Safety Other Treatments Other Treatment Performed SpO2 on 1L/min was 93% at rest . After activity (with O2 via NC) SpO2 was 82% and took three minutes to return to 89% . Communicated VS to RN. Zuñiga PT-IP Assessment and Plan Start: 03/02/21 12:28 Freq: NEEDED Status: Active Protocol: Document 03/03/21 14:30 AW (Rec: 03/03/21 15:08 AW [id number]) PT Summary Assessment and Plan Summary Impairments Pain,ROM,Strength,Balance, Cognition,Bed Mobility, Transfers,Gait,Activity Tolerance Progress Towards Goals Slow Progress due to Pain,Slow Progress due to Activity Tolerance Assessment Summary Marlene was able to ambulate to the toilet this PM with FWW and min assist. She continues to require constant reminders for posterior hip precautions . Left pt with pillow between knees to promote more neutral rotation and pt tend to internally rotate at rest. She will require SNF rehab. Goals Bed Mobility Goal Standby Assistance Transfer Goal Standby Assistance,Front Wheeled Walker Gait Goal Standby Assistance,Front Wheel Walker Gait Distance 75 Days to Meet Goals 10 Frequency of Treatment Frequency Of Treatment Twice a Day Treatment Plan Physical Therapy Treatment Plan Bed Mobility Training,Transfer Training,Gait Training, Therapeutic Exercise,Balance Retraining,Post Op Education, Discharge Planning,Hot or Cold Pack,Neuromuscular Re-ed Other Recommendations and Next Treatment review precautions; transfers; Focus gait training with FWW Precautions Posterior Hip Precautions No Hip Flexion > 90 degrees,No Hip Internal Rotation,No Hip Adduction Other Precautions severe osteoporosis Recommendations To Nursing Amount of Assist Needed 1 Person Assist Discharge Recommendations PT Discharge Recommendations SNF Rehab Equipment Needed for Home Before defer to subacute rehab Discharge setting
--- NOTE | 2021-03-03 15:30 | CM.DPC ---
DCP SNF Planning: Per MD, pt improving and likely stable for d/c to SNF tomorrow if medically stable. Per PT, recommending SNF at d/c before safe return home and pt and sister agreeable. SUSAN met bedside with pt and sister and explained role and they both confirm that they feel SNF needed before pt can return home alone. SW provided the SNF Choice list and pt has some memory issues and states her preference is [facility] but SW explained that they are only LTC now and therefore pt and sister preference is to remain in [place] as sister cannot drive far. SW called [facility] and confirmed they are still following and can accept. SUSAN confirmed with pt's sister that pt has not gotten COVID vaccinations yet and SW explained that pt likely would need to be in quarantine initially at SNF and she is agreeable. SUSAN also inquired about pt's home med Methotrexate weekly as it is not listed on pt's home med. Sister states pt has the medication pill form at home and takes it once a week. SUSAN updated [facility] on above and [facility] just needs MD to update med list to include the methotrexate medication and dosing information prior to d/c. Plan: SUSAN to follow for MD updating the med list and determining if updated COVID neg test needed prior to d/c to [facility]. PASRR previously completed. Melida Arndt MSW
--- NOTE | 2021-03-03 15:36 | PM.PN.1 ---
Subjective Subjective Date Patient Seen: 03/03/21 Time Patient Seen: 08:36 Interval history: Today she feels well after her R hip repair yesterday. Her pain is well controlled. She feels her breathing is at baseline with minimal shortness of breath. Exam Vital Signs (past 8 hours): - 03/03/21 07:50 03/03/21 08:02 03/03/21 11:12 Temperature 98.1 F 97.5 F L Pulse Rate 83 84 77 Respiratory Rate 16 16 16 Blood Pressure 138/60 142/69 H Pulse Oximetry 92 92 95 Fraction of Inspired Oxygen 24 Oxygen Delivery Method Nasal Cannula Oxygen Flow Rate 1 Narrative Exam Narrative: GEN: no acute distress HEENT: PERRL, moist mucous membranes NECK: no jvd, trachea midline CV: regular rate and rhythm with no murmurs PULM: clear bilaterally ABD: soft, nontender, no organomegaly, normal bowel sounds EXT: warm and well perfused, R hip dressing clean dry and intact SKIN: no rashes noted NEURO: awake and alert, moving all extremities PSYCH: cooperative, pleasant Objective Labs Result Diagrams: 03/03/21 04:50 03/03/21 04:50 Labs: Laboratory Results - last 24 hr 03/02/21 03/02/21 03/03/21 11:35 16:30 04:50 WBC 18.4 H 13.4 H RBC 3.70 L 3.42 L Hgb 10.6 L 9.8 L Hct 32.5 L 30.1 L MCV 87.9 88.3 MCH 28.7 28.7 MCHC 32.7 32.6 RDW 15.5 H 15.8 H Plt Count 338 296 Sodium Potassium Chloride Carbon Dioxide BUN Creatinine Estimated GFR BUN/Creatinine Ratio Glucose Calcium Hep Bs Antibody Non reactive 03/03/21 04:50 WBC RBC Hgb Hct MCV MCH MCHC RDW Plt Count Sodium 130 L Potassium 4.9 D Chloride 96 L Carbon Dioxide 30 BUN 22 H Creatinine 0.77 Estimated GFR > 60.0 BUN/Creatinine Ratio 28.6 H Glucose 90 Calcium 8.4 Hep Bs Antibody [facility] Medical History Rheumatoid arthritis Tobacco abuse Surgical History History of left hip replacement Social History household members: none Smoking Status: Former smoker alcohol intake: current Assessment & Plan Assessment & Plan narrative: Ms. Llamas is an 80W with PMH of osteoporosis coming in with R hip pain found to have displaced fracture, also found to have shortness of breath concerning for CHF vs COPD. 1. Acute R hip fracture -no known trauma -ortho consulted and planned for surgery on AM 03/02 for R hip hemiarthroplasty -pain medications to control pain are ordered -PT/OT eval ordered -plan for DC to SNF likely tomrrow 2. Acute hypoxemic respiratory failure from acute COPD exacerbation and probable acute CHF exacerbation - oxygen initially in the 80s - etiology likely multifactorial from CHF and COPD - COPD as patient is coughing and wheezing, started nebulizers, azithromycin - prednisone stopped as patient underwent surgery and want to promote wound healing - CHF with evidence of pulmonary interstitial prominence, elevated BNP, and ordered for lasix intially which has been discontinued - ordered for ECHO which is pending - initially elevated lactate at 3.3 now improved to 1.7 - careful with IV fluids given initial presentation 3. UTI -UA positive with cultures showed mixed mary -stop antibiotics as does not appear urine is infected 4. Chronic R tibia and fibula fracture - no pain currently - appreciate ortho recs of no surgical indication 5. Hypertension -hold home medications for now 6. Rheumatoid arthritis -hold methotrexate for now pending surgery 7. Osteoporosis - noted on imaging - may need medications upon discharge IVF: none Diet: NPO after midnight DVT ppx; Lovenox Code status: DNR, proxy is Claudia Watkins VTE Deep Vein Thrombosis/Pulmonary Embolism Present on Admission: No
[2021-03-03] MEDS: AZITHROMYCIN 500 MG in DEXTROSE 5% IN WATER 250 ML IV (16:17)
[2021-03-03] MEDS: TIMOLOL 0.5% OPHTH 1 DROPS EYE-BOTH (21:17)
[2021-03-04] VITALS (7 sets, daily range): BP systolic 138–179; BP diastolic 65–89; PULSE 82–89; RESP 16–18; TEMP 36.1–36.4; O2SAT 92–97
[2021-03-04 06:18] LABS: Hematocrit 33.5 % (36-46); Hemoglobin 11.1 g/dL (12.0-16.0); Mean Corpuscular HGB Conc 33.2 % (30-36); Mean Corpuscular Hemoglobin 29.2 PG (26-34); Mean Corpuscular Volume 87.8 fL (80-100); Platelet Count 311 X10^3/uL (150-400); Red Blood Cell Count 3.81 X10^6/uL (4.0-5.2); Red Cell Distribution Width 15.4 % (11.6-14.8); White Blood Cell Count 9.2 X10^3/uL (4.5-11.0)
[2021-03-04 06:27] LABS: BUN Creatinine Ratio 25.9 (6-22); Blood Urea Nitrogen 14 mg/dL (7-17); Calcium 8.3 mg/dL (8.4-10.2); Carbon Dioxide 32 mmol/L (22-32); Chloride 94 mmol/L (98-107); Estimated Glomerular Filt Rate > 60.0 mL/min (>60); Glucose 77 mg/dL (80-110); HEMOLYSIS < 15 (0-50); Sodium 130 mmol/L (137-145)
[2021-03-04] MEDS: ENOXAPARIN 40 MG/0.4 ML SYRINGE SUBCUT (08:24)
[2021-03-04] MEDS: ACETAMINOPHEN 325 MG TABLET 650 MG PO (08:24)
[2021-03-04] MEDS: SODIUM CHLORIDE 0.9% FLUSH 10 ML IV (08:25)
[2021-03-04] MEDS: DOCUSATE 100 MG CAPSULE PO (08:25)
--- NOTE | 2021-03-04 08:38 | P.DS_ITS ---
History of Present Illness History of Present Illness Chief complaint: COPD Narrative: Ms. Llamas is an 80W with PMH of rheumatoid arthritis, osteoporosis, COPD who comes in with right leg pain. She notes that she had mild pain in her right thing but that became severe. She had no trauma to the leg. Her pain is pr imarily in the right hip. She also has had shortness of breath which she stated was at her basesline. However, she was noted to have oxygen saturation in the 80s and placed on oxygen. She is not having any fevers or chills, she is having some coughing. She is usually able to walk with a walker at home, and uses a lift for assistance. Today she was unable to bear weight due to pain so she came in to the emergency room. In the ER she was found to have initially a mild tachycardia. She was requiring 8L of oxygen but this was quickly decreased to 2L. Her chest xray showed interstitial prominence. Hip xray showed displaced right femoral neck fracture. Knee xray showed chronic fractures of the femur and tibia. She was given pain medications, IV lasix, nebulizers and admitted for further treatment. Discharge Providers Provider Date of admission: 03/01/21 13:36 Discharge Date: 03/04/21 Primary care physician: Ilana Frances MD Consults: 03/01/21 09:37 Consult to Respiratory Therapy Evaluate & Treat Comment: Physician Instructions: Evaluate and treat 03/01/21 14:39 Consult to Dietitian, Adult Routine Comment: Reason For Exam: severe decline in food intake 03/01/21 16:13 Consult to Orthopedic Surgery Routine Comment: Consulting Provider: Hardik Shearer Reason for consultation: hip fracture Has provider been notified: Yes 03/02/21 10:47 Consult to Discharge Planning Routine Comment: Consult to Physical Therapy Evaluate & Treat Comment: Physician Instructions: post op EVER protocol Discharge provider: Mark Robison MD Summary Hospital Course Discharge Diagnosis: 1. Acute right hip fracture s/p R hip hemiarthroplasty 03/02 2. Acute hypoxemic respiratory failure from acute COPD exacerbation and acute CHF with preserved EF 3. UTI, ruled out 4. Chronic R tibia and fibula fracture 5. Hypertension 6. Rheumatoid arthritis 7. Osteoporosis Hospital Course: Ms. Llamas was admitted after developing sudden onset right hip pain. She had no known trauma or injury that she could recall. She underwent surgery on 03/02 and did well. Per orthopedics she had osteoporosis and so should be considered to start medications for this as an outpatient. She initially was satting in the 80s in the ER with evidence of mild diastolic CHF exacerbation and mild acute COPD exacerbation. She improved greatly with a dose of lasix. Her ECHO showed a preserved EF of 60-65%. She was continued on albuterol nebulizers for her COPD exacerbation. She should continued on DVT prophylaxis after her surgery, and she should follow up with Dr. Shearer. She was not needing further diuresis in the hospital but should be monitored to see if she will need lasix. She had a UTI ruled out by time of discharge. She is discharge to SNF for further PT Exam Vital Signs (past 8 hours): Fraction of Inspired Oxygen 24 Oxygen Delivery Method Nasal Cannula Oxygen Flow Rate 1 Narrative Exam Narrative: GEN: no acute distress HEENT: PERRL, moist mucous membranes NECK: no jvd, trachea midline CV: regular rate and rhythm with no murmurs PULM: clear bilaterally ABD: soft, nontender, no organomegaly, normal bowel sounds EXT: warm and well perfused, R hip dressing clean dry and intact SKIN: no rashes noted NEURO: awake and alert, moving all extremities PSYCH: cooperative, pleasant Objective Labs Result Diagrams: 03/04/21 05:45 03/04/21 05:45 [facility] Medical History Rheumatoid arthritis Tobacco abuse Surgical History History of left hip replacement Social History household members: none Smoking Status: Former smoker alcohol intake: current Discharge Plan Discharge Plan Patient Disposition: SNF Provider Discharge Comment: Ms. Llamas came in with right hip pain. She was found to have a R hip fracture and went for repair on 03/02 with orthopedics. She did well with surgery. She also had some mild shortness of breath but improved with nebulizers. She did not get a full burst of prednisone in order to not interfere with her surgical healing. Patient has needed intermittent oxygen here on 2L at DC. She can likely be weaned from this with additional physical therapy and do not anticipate director long term care oxygen as she was not on it at home. Discharge orders & Medications Prescriptions: New acetaminophen 325 mg Tablet 650 mg PO TID Qty: 30 RF: 0 polyethylene glycol 3350 17 gram Powder In Packet 17 gm PO DAILY PRN (Reason: Constipation) Qty: 30 RF: 0 ondansetron 4 mg Tablet,Disintegrating 4 mg PO Q4HR PRN (Reason: Nausea) Qty: 12 RF: 0 oxycodone 5 mg Tablet 5 mg PO Q3HR PRN (Reason: Pain, Moderate (4-6)) Qty: 12 RF: 0 enoxaparin [Lovenox] 40 mg/0.4 mL Syringe 40 mg SUBCUT DAILY Qty: 12 RF: 0 docusate sodium [DOK] 100 mg Capsule 100 mg PO BID Qty: 30 RF: 0 methotrexate sodium 2.5 mg tablet 15 mg PO QWEEK Qty: 30 RF: 0 albuterol sulfate 90 mcg/actuation aerosol powdr breath activated 1 inh inhalation Q4-6H PRN (Reason: shortness of breath) Qty: 1 RF: 0 Continued timolol maleate 0.5 % drops 1 drp OPHTH HS Qty: 5 RF: 0 AMLODIPINE BESYLATE (#NORVASC) 5 mg PO QAM Qty: 0 RF: 0 Follow up/Referrals: Hardik Shearer MD [Physician] - (s/p R hemiarthroplasty on 03/02) Ilana Frances MD [Primary Care Provider] - Diet/Activity/Treatments Diet: Diet as Tolerated and Regular [facility] Reason for rehabilitation: Post-operative therapy Visit Report/Discharge Packet Instructions: DI for Hip Replacement Discharge Data Primary Care Provider: Ilana Frances Quality VTE Deep Vein Thrombosis/Pulmonary Embolism Present on Admission: No MIPS - DC The patient has current or prior documentation of left ventricular ejection fraction (LVEF) less than 40%, or moderate or severely depressed left ventricular systolic function.: No
--- NOTE | 2021-03-04 08:48 | PM.PNPO.1 ---
Subjective Subjective Date Patient Seen: 03/04/21 Time Patient Seen: 08:48 Interval history: Patient reports she is not having any pain. Denies fever or chills. No nausea vomiting. Patient reports she lives alone however her sister lives nearby and checks on her daily. Exam Vital Signs (past 8 hours): - 03/04/21 04:00 03/04/21 07:00 03/04/21 07:35 Temperature 97.5 F L 97.2 F L Pulse Rate 84 82 Respiratory Rate 18 16 Blood Pressure 149/78 H 179/89 H Pulse Oximetry 97 92 92 Fraction of Inspired Oxygen 24 Oxygen Delivery Method Nasal Cannula Oxygen Flow Rate 2 Narrative Exam Narrative: 80-year-old female sitting in bedside chair having breakfast. She is in no apparent distress. Motor functions intact distal right lower extremity. Sensation grossly intact to light touch bilateral lower extremities. Scant drainage on the dressing. Dressing is otherwise intact. Objective Labs Result Diagrams: 03/04/21 05:45 03/04/21 05:45 Labs: Laboratory Results - last 24 hr 03/02/21 03/04/21 03/04/21 11:35 05:45 05:45 WBC 9.2 RBC 3.81 L Hgb 11.1 L Hct 33.5 L MCV 87.8 MCH 29.2 MCHC 33.2 RDW 15.4 H Plt Count 311 Sodium 130 L Potassium 4.0 Chloride 94 L Carbon Dioxide 32 BUN 14 Creatinine 0.54 Estimated GFR > 60.0 BUN/Creatinine Ratio 25.9 H Glucose 77 L Calcium 8.3 L Hep Bs Antibody Non reactive [facility] Medical History Rheumatoid arthritis Tobacco abuse Surgical History History of left hip replacement Social History household members: none Smoking Status: Former smoker alcohol intake: current Assessment & Plan Post-op Postoperative Procedures: Procedures Operation Date: 03/02/21 08:00 Actual Procedures Side Surgeon p Hip Hemiarthroplasty Right Hardik Shearer MD Postop day 2. Weightbearing as tolerated right lower extremity. Posterior hip precautions. Physical therapy currently recommending long term facility placement. Patient is on Lovenox for DVT prophylaxis. Patient will work with physical therapy today. Depending on her progress with physical therapy discharge home tomorrow and or long term facility. Quality VTE Deep Vein Thrombosis/Pulmonary Embolism Present on Admission: No
--- NOTE | 2021-03-04 10:10 | PT.IPTN ---
Current Diagnoses Pathological fracture, right femur, initial encounter for fracture (03/01/21) Surgery Performed Operation Date: 03/02/21 08:00 Actual Procedures p Hip Hemiarthroplasty(Right) - Hardik Shearer MD Physical Therapy Treatment Note M2 PT-IP Current Condition Start: 03/02/21 12:28 Freq: NEEDED Status: Active Protocol: Document 03/03/21 09:16 AW (Rec: 03/03/21 09:30 AW [id number]) Physical Therapy Current Condition Current Condition Evaluation Date 03/03/21 Treatment Diagnosis displaced R femoral neck fx s/ p hemiarthroplasty; COPD; impaired mobility Onset Date 03/01/21 Precautions Posterior Hip Precautions No Hip Flexion > 90 degrees,No Hip Internal Rotation,No Hip Adduction Other Precautions severe osteoporosis Weight Bearing Status Weight Bearing Status Weight Bear as Tolerated M3 PT-IP Subjective Start: 03/02/21 12:28 Freq: NEEDED Status: Active Protocol: Document 03/04/21 10:10 AB (Rec: 03/04/21 12:02 AB [email or web address]) Subjective Physical Therapy Visit Type Type Treatment Note Visit Start Time 10:10 Visit Stop Time 10:45 Total Visit Minutes 35 Number of DIRECTOR INDEX Visits 0 Physical Therapy Visit Comments Patient Comments pt is agreeable to do PT Therapy Pain Assessment Pain When Pain Assessed At Rest Pain Present Pain Present Pain Reported Location Right Upper Leg Intensity 1 Scale Used Numeric (0 - 10) M4 PT-IP Mobility and Gait Start: 03/02/21 12:28 Freq: NEEDED Status: Active Protocol: Document 03/04/21 10:10 AB (Rec: 03/04/21 12:02 AB [email or web address]) PT-Transfer Assessment Sit to and From Stand Sit to and from Stand Moderate Assistance,Maximum Assistance,1 Person Assistance ,Use of Upper Extremities Equipment Transfer Assistive Device Gait Belt,Front Wheeled Walker Orthotic/Prosthetic Devices or Brace: No Comments Mobility Comments reviewed hip precautions. pt does not recall any of her hip precautions. educated again . pt's sister in room with pt . pt completed sit to stand from chair mod to max A and max cues to maintain hip precautions. pt ambulated in room using FWW min A ~ 30 ft. pt requested to rest after ambulation. positioned on chair. call light and table placed wtihin reach. Gait Assessment Gait Gait Assistance Required: Minimum Assistance Distance (Feet) 30 Able to Maintain Weight Bearing Status Yes During Gait Assistive Devices Assistive Device Gait Belt,Front Wheeled Walker Orthotic/Prosthetic Devices or Brace: No Gait Deviations General Gait Pattern Antalgic,Decreased Stride Length,Decreased Feet Clearance,Step-to Gait Factors Limiting Gait Function Factors Limiting Gait Function Decreased Activity Tolerance, Decreased Strength,Difficulty Following Directions,Limited Range of Motion,Pain,Poor Balance,Poor Safety Awareness Comments Gait Comments pls refer to mobility section for details M5 PT-IP Objective Assessments Start: 03/02/21 12:28 Freq: NEEDED Status: Active Protocol: Document 03/03/21 09:16 AW (Rec: 03/03/21 09:59 AW [id number]) Orientation Orientation/Cognition Level of Alertness Alert Orientation Name,Month,Place,Situation Language Function Ability No Deficits Noted Safety Awareness Decreased Safety Awareness Memory Description Short Term Impaired Comments Pt admits to memory impairment and requires frequent reminders about posterior hip precautions. Gross Range of Motion Lower Extremity ROM Assessment Right Impaired Strength Lower Extremity Strength Assessment Bilaterally Impaired Hip L 4-/5; R 3-/5 Knee L 4-/5; R 3+/5 Ankle B 4-/5 Sensation Assessment Sensation Gross Sensation WNL Muscle Tone Muscle Tone WNL Yes Other Assessments Other Other Assessments Pt is cachectic and frail- appearing. Pressure injury noted on thoracic spinous process and reported to RN. M6 PT-IP Treatment Start: 03/02/21 12:28 Freq: NEEDED Status: Active Protocol: Document 03/04/21 10:10 AB (Rec: 03/04/21 12:02 AB [email or web address]) Physical Therapy Treatment Education Education Provided Precautions,Weight Bearing Status,Safety M7 PT-IP Assessment and Plan Start: 03/02/21 12:28 Freq: NEEDED Status: Active Protocol: Document 03/04/21 10:10 AB (Rec: 03/04/21 12:02 AB [id number]) PT Summary Assessment and Plan Potential Rehabilitation Potential Good Summary Impairments Pain,ROM,Strength,Balance, Coordination,Sensation,Tone, Cognition,Bed Mobility, Transfers,Gait,Activity Tolerance Progress Towards Goals Slow Progress due to Activity Tolerance,Slow Progress - Other Assessment Summary pt requiring mod to max A with sit to stand and max cues to maintain hip precautions, min A for ambulation using FWW but had decrease activity tolerance affecting mobility. pt will require SNF rehab to improve strength and mobility. Goals Bed Mobility Goal Standby Assistance Transfer Goal Standby Assistance,Front Wheeled Walker Gait Goal Standby Assistance,Front Wheel Walker Gait Distance 75 Days to Meet Goals 10 Frequency of Treatment Frequency Of Treatment Twice a Day Treatment Plan Physical Therapy Treatment Plan Bed Mobility Training,Transfer Training,Gait Training, Therapeutic Exercise,Balance Retraining,Post Op Education, Discharge Planning,Hot or Cold Pack,Neuromuscular Re-ed Other Recommendations and Next Treatment review precautions; transfers; Focus gait training with FWW Precautions Posterior Hip Precautions No Hip Flexion > 90 degrees,No Hip Internal Rotation,No Hip Adduction Recommendations To Nursing Amount of Assist Needed 1 Person Assist Discharge Recommendations PT Discharge Recommendations SNF Rehab
--- NOTE | 2021-03-04 12:14 | CM.DPC ---
DCP: continued: Case received and met with pt and her sister Griselda during Team Rounds. Dr. Robison explained that both he and the orthopedic team had determined pt was stable for d/c to snf level of care today. EMR reviewed and followed up with [facility]. She stated that they are ready for pt today but cannot transport her until 1530. She requested updated COVID - test results for today. She states the facility still cannot use nebulizer treatment due to COVID snf restrictions. Dr. Wyatt is updated. Pt is on weekly dose of methatrexate from her PCP: Griselda brought in the bottle for staff to see dosing etc. Dr. Robison is aware and will incorporate into the orders. Currently snf orders are partially completed. PASRR completed a few days ago is reviewed, faxed, and to scan and snf packet. IMM #2 is presented to pt. Will follow prn until pt leaves to make sure all is in place. Update given to JERI Adan as well as Nurse/Nurse report number.
[2021-03-04 14:41] LABS: COVID19 - ADMIT (NP swab/PCR) Negative (Negative)
[2021-03-04 19:58] LABS: Hepatitis B Surface Antigen NEGATIVE s/c (NEGATIVE)
[2021-03-04 20:15] LABS: HIV 1 & 2 Ab/Ag 4th Gen Combo NEGATIVE (NEGATIVE); Hep C Virus Ab w/Reflex Quant NEGATIVE s/c (NEGATIVE)
== END 2021-03-04 15:51 | DRG 521 ==
LOC: ED 13:25 → AC 13:37
PROVIDERS: Orthopaedic Surgery; Admitting Provider Internal Medicine; Emergency Provider Emergency Medicine; Family Provider Internal Medicine; PCP Internal Medicine; Referring Provider Emergency Medicine; Visit Provider Internal Medicine
PROC: 0SRR0JZ Replacement of Right Hip Joint, Femoral Surface with Synthetic Substitute, Open Approach (ICD-10-PCS; CPT 27125; principal; 2021-03-02 08:00)
DX: M80.051A Age-related osteoporosis with current pathological fracture, right femur, initial encounter for fracture (principal); J96.01 Acute respiratory failure with hypoxia; E43 Unspecified severe protein-calorie malnutrition; I50.31 Acute diastolic (congestive) heart failure; J44.1 Chronic obstructive pulmonary disease with (acute) exacerbation; Z68.1 Body mass index [BMI] 19.9 or less, adult; I11.0 Hypertensive heart disease with heart failure; M80.061A Age-related osteoporosis with current pathological fracture, right lower leg, initial encounter for fracture; M06.9 Rheumatoid arthritis, unspecified; Z66 Do not resuscitate; Z20.822 Contact with and (suspected) exposure to COVID-19
CPT/HCPCS: 36415; 51701; 71046; 72170; 73502; 73560; 80048; 80053; 81003; 81015; 82550; 82553; 83605; 83735; 83880; 84145; 84484; 85025; 85027; 85610; 85730; 87086; 87635; 93005; 93010; 93306; 94640; 94760; 94762; 96361; 96374; 96375; 97116; 97162; 97530; 99285; C1776; C9803; J0690; J1650; J1940; J2270; J2274; J2405; J2704; J2930; J3010

== ENCOUNTER → 2021-04-30 10:41 | Outpatient (CLI) | payer MEDICARE, OTHER, SELFPAY ==
[2021-03-01 14:29] VITALS: BMI 17.6
--- NOTE | 2021-04-30 | DI.RAD.S_ITS ---
PROCEDURE: XR CHEST 2V INDICATIONS: Shortness of breath TECHNIQUE: 2 views of the chest were acquired. COMPARISON: [facility], CR, XR CHEST 2V, 03/01/2021, 9:35. FINDINGS: Surgical changes and devices: None. Lungs and pleura: Chronic emphysematous changes are seen. No pleural effusions or pneumothorax. Mediastinum: Mediastinal contours are normal. Heart size is normal. Bones and chest wall: No chronic appearing anterior wedge compression deformity involving mid and lower thoracic spine vertebral bodies are again seen with moderate kyphosis and diffuse osteopenia. Soft tissues appear unremarkable. IMPRESSION: COPD. No acute cardiopulmonary pathology. Dictated by: Brennen Jo M.D. on 04/30/2021 at 11:40 Approved by: Brennen Jo M.D. on 04/30/2021 at 11:41
== END ==
PROVIDERS: Family Provider Internal Medicine; PCP Internal Medicine; Referring Provider Nurse Practitioner; Visit Provider Nurse Practitioner
DX: R06.02 Shortness of breath (principal); R09.89 Other specified symptoms and signs involving the circulatory and respiratory systems; J44.9 Chronic obstructive pulmonary disease, unspecified
CPT/HCPCS: 71046

== ENCOUNTER → 2021-08-11 13:12 | Outpatient (CLI) | payer MEDICARE, OTHER, SELFPAY ==
[2021-03-01 14:29] VITALS: BMI 17.6
[2021-08-11 15:00] LABS: Vitamin D 25 Hydroxy (D3) 37.4 ng/mL (30.0-100.0)
== END ==
PROVIDERS: Family Provider Internal Medicine; PCP Internal Medicine; Referring Provider Internal Medicine; Visit Provider Internal Medicine
DX: M81.0 Age-related osteoporosis without current pathological fracture (principal)
CPT/HCPCS: 36415; 82306

== ENCOUNTER 2021-09-02 08:54 | Inpatient (IN) | payer MEDICARE, OTHER, SELFPAY ==
[2021-03-01 14:29] VITALS: BMI 17.6
[2021-09-02] VITALS (23 sets, daily range): BP systolic 109–193; BP diastolic 59–129; PULSE 82–111; RESP 16–40; TEMP 36.4–37.2; O2SAT 79–100; BMI 15.0
--- NOTE | 2021-09-02 09:01 | DI.RAD.S_ITS ---
PROCEDURE: XR HIP W PEL IF DONE RT 2V INDICATIONS: pain with standing TECHNIQUE: AP pelvis and lateral view of the right hip acquired. COMPARISON: Merged With [facility], CR, XR HIP W PEL IF DONE RT 2V, 03/01/2021, 11:56. 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 No fracture. No perihardware lucency. 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 No suspicious soft tissue densities. Vasculature has atherosclerotic calcifications. A calcification in the pelvis is likely a calcified uterine fibroid. IMPRESSION: Postoperative changes of both hips. No radiographic complication. Dictated by: Arie Champion M.D. on 09/02/2021 at 9:36 Approved by: Arie Champion M.D. on 09/02/2021 at 9:43
--- NOTE | 2021-09-02 09:01 | DI.RAD.S_ITS ---
PROCEDURE: XR FEMUR RT MIN 2V INDICATIONS: pain with standing TECHNIQUE: 4 views of the femur were acquired. COMPARISON: None. FINDINGS: Bones: Postoperative changes of right bipolar hip replacement. No perihardware lucency or acute fracture. The right knee has severe tricompartmental degenerative changes. No fractures or dislocations. No suspicious bony lesions. Soft tissues: No suspicious soft tissue calcifications or masses. Vasculature demonstrates atherosclerotic calcifications. IMPRESSION: 1. Postoperative changes of the right hip without radiographic complication. 2. Severe right knee osteoarthritis. Dictated by: Arie Champion M.D. on 09/02/2021 at 9:43 Approved by: Arie Champion M.D. on 09/02/2021 at 9:45
--- NOTE | 2021-09-02 09:01 | ED_ITS ---
HPI - General Adult General Chief complaint: Shortness of Breath/Dyspnea Stated complaint: Right hip pain Time Seen by Provider: 09/02/21 08:54 Source: patient and EMS Mode of arrival: EMS Limitations: no limitations History of Present Illness HPI narrative: 80-year-old female who is here for evaluation of right knee and right hip discomfort. Symptoms started yesterday. No specific trauma. She has had hip fracture in the past. She arrived by EMS today for discomfort specifically with standing. She reports the pain is down in her knee and also in her hip. No abdominal pain. No chest pain. She does state that she has COPD does occasionally get short of breath. No fevers. No coughing. Related Data Home Medications Medication Instructions Recorded Confirmed timolol maleate 0.5 % eye drops 1 drp OPHTH BID #5 ml 04/15/13 09/02/21 acetaminophen 325 mg tablet 650 mg PO QAM 09/02/21 09/02/21 calcium carbonate 500 mg calcium 500 mg PO Q6HR PRN 09/02/21 09/02/21 (1,250 mg) chewable tablet fluticasone 250 mcg-salmeterol 50 1 inh INHALATION BID 09/02/21 09/02/21 mcg/dose blistr powdr for inhalation (Advair Diskus) folic acid 1 mg tablet 1 mg PO QAM 09/02/21 09/02/21 furosemide 20 mg tablet 20 mg PO QAM 09/02/21 09/02/21 metoprolol succinate 50 mg 50 mg PO QAM 09/02/21 09/02/21 tablet,extended release 24 hr omeprazole 20 mg capsule,delayed 20 mg PO QAM 09/02/21 09/02/21 release pantoprazole 40 mg tablet,delayed 40 mg PO QAM 09/02/21 09/02/21 release (Protonix) polyethylene glycol 3350 17 gram 17 g PO QAM 09/02/21 09/02/21 oral powder packet sodium chloride 1 gram tablet 1 g PO QAM 09/02/21 09/02/21 Previous Rx's Medication Instructions Recorded albuterol sulfate 90 mcg/actuation 1 inh INHALATION Q4-6H PRN #1 ea 03/04/21 breath activated powder inhaler methotrexate sodium 2.5 mg tablet 15 mg PO QWEEK #30 tab 03/04/21 Allergies Allergy/AdvReac Type Severity Reaction Status Date / Time clindamycin [CLINDAMYCIN] Allergy Mild RASH Verified 09/02/21 09:23 rosuvastatin [ROSUVASTATIN] Allergy Mild ACHING Verified 09/02/21 09:23 MUSCLES Review of Systems Cardiovascular Cardiovascular: Reports as per HPI and Reports system reviewed and no additional complaints, except as documented Respiratory Respiratory: Reports as per HPI and Reports system reviewed and no additional complaints, except as documented Gastrointestinal Gastrointestinal: Reports as per HPI and Reports system reviewed and no additional complaints, except as documented Musculoskeletal Musculoskeletal: Reports system reviewed and no additional complaints, except as documented and Reports as per HPI Integumentary/Breasts Skin/Breast: Reports system reviewed and no additional complaints, except as documented Hematologic/Lymphatic On Anticoagulants: No Patient History Medical History Rheumatoid arthritis Tobacco abuse Surgical History History of left hip replacement Social History household members: none Smoking Status: Former smoker alcohol intake: current Smoking Status: Former smoker alcohol intake frequency: 0-2 drinks per day Alcohol type: beer Substance Use Type: does not use Exam Initial Vital Signs Initial Vital Signs: Vital Signs Temperature 97.6 F 09/02/21 09:00 Pulse Rate 111 H 09/02/21 09:00 Respiratory Rate 40 H 09/02/21 09:00 Blood Pressure 179/101 H 09/02/21 09:00 Pulse Oximetry 79 L 09/02/21 09:00 Const General: No acute distress HENPA Head: normal to inspection and normocephalic Resp Effort & Inspection: labored and tachypneic Auscultation: clear to auscultation bilaterally Cardio Rate: regular rate Rhythm: regular rhythm GI Palpation: soft Skin General: no rashes or lesions noted Neuro General: patient alert, patient awake, patient oriented x3 and moves all extremities Extrem General: capillary refill normal Other: Patient is able to flex and extend the knee without discomfort. Was able to internal and externally rotation of the right hip with flexion extension. Some discomfort with palpation of the right hip. Psych Appearance: grossly normal and well kempt Course Orders Ordered: ED Orders 09/02/21 09:01 XR femur RT min 2V Stat XR hip w pel if done RT 2V Stat 09/02/21 09:05 Complete Blood Count AUTO DIFF Stat Comprehensive Metabolic Panel Stat Lipase Stat NT-proBNP (BNP-Adult 18+) Stat Troponin & CK Cardiac Panel Stat 09/02/21 09:07 XR chest 1V Stat EKG-12 Lead Stat 09/02/21 09:18 COVID19 -Nasal swab/Pre-Proc Stat 09/02/21 09:40 COVID19 - ADMIT (G[employer]ER swab/PCR) Stat Lactate (Lactic Acid) Stat Procalcitonin Stat Respiratory Panel (Film Array) Stat 09/02/21 09:55 RT Consult Eval and Treat Now 09/02/21 10:22 Blood Culture Stat 09/02/21 13:23 Consult to FURNACE FEEDER - Car Framer Stat Acetaminophen (Acetaminophen 325 Mg Tablet) 650 mg PO Q6HR PRN PRN Reason: Fever/Mild Pain (1-3) Al Hydrox/Mg Hydrox/Simethicone (Mag Hydrox/Alum/Simeth 30 Ml Udc) 30 ml PO Q6HR PRN PRN Reason: Dyspepsia Albuterol (Albuterol 2.5 Mg/3 Ml Neb (Adult)) 2.5 mg INH Q4HRWA [facility] Albuterol (Albuterol 2.5 Mg/3 Ml Neb (Adult)) 2.5 mg INH Q2H PRN PRN Reason: Shortness Of Breath Albuterol/Ipratropium (Albuterol/Ipratropium 3 Ml Ampul) 3 ml INH [id number] [facility] Aspirin (Aspirin 325 Mg Tablet) 325 mg PO DAILY [facility] Last Admin: 09/02/21 16:53 Dose: 325 mg Documented by: YAYO Bisacodyl (Bisacodyl 10 Mg Supp) 10 mg [place] DAILY PRN PRN Reason: Constipation Budesonide (Budesonide 0.5 Mg/2 Ml Neb) 0.5 mg INH RTBID [facility] Doxycycline Hyclate (Doxycycline Hyclate 100 Mg Tablet) 100 mg PO BID [facility] Last Admin: 09/02/21 16:47 Dose: Not Given Documented by: YAYO Enoxaparin Sodium (Enoxaparin 40 Mg/0.4 Ml Syringe) 40 mg SUBCUT DAILY [facility] Folic Acid (Folic Acid 1 Mg Tablet) 1 mg PO DAILY [facility] Ceftriaxone Sodium 1,000 mg/ (Sodium Chloride) 100 mls @ 200 mls/hr IV 1500 [facility] Last Admin: 09/02/21 16:53 Dose: 200 mls/hr Documented by: YAYO Methotrexate (Methotrexate 2.5 Mg Tablet) 15 mg PO We@0900 [facility] Methylprednisolone (Methylprednisolone 40 Mg/Ml Vial) 40 mg IV Q8HR [facility] Last Admin: 09/02/21 16:52 Dose: 40 mg Documented by: YAYO Metoprolol Succinate (Metoprolol Er 50 Mg Tablet) 50 mg PO DAILY [facility] Morphine Sulfate (Morphine 2 Mg/Ml Inj) 2 mg IV Q4HR PRN PRN Reason: Pain, Moderate (4-6) Naloxone HCl (Naloxone 0.4 Mg/Ml Vial) 0.2 mg IV Q2MIN PRN PRN Reason: Opiate Reversal Nitroglycerin (Nitroglycerin 0.4 Mg Sl Tab) 0.4 mg SL [id number] PRN PRN Reason: Chest Pain Ondansetron HCl (Ondansetron 4 Mg/2 Ml Inj) 4 mg IV Q8HR PRN PRN Reason: Nausea And Vomiting Pantoprazole Sodium (Pantoprazole Dr 20 Mg Tablet) 20 mg PO 0600 [facility] Polyethylene Glycol (Polyethylene Glycol 3350 17 Gm Powd.Pack) 17 gm PO DAILY [facility] Promethazine HCl (Promethazine 12.5 Mg Supp) 12.5 mg [place] Q6HR PRN PRN Reason: Nausea And Vomiting Sennosides (Sennosides 8.6 Mg Tablet) 17.2 mg PO BEDTIME [facility] Sodium Chloride (Sodium Chloride 1,000 Mg Tablet) 1,000 mg PO DAILY [facility] Sucralfate (Sucralfate 1 Gm Tablet) 1 gm PO ACHS [facility] Last Admin: 09/02/21 16:53 Dose: 1 gm Documented by: YAYO Timolol Maleate (Timolol 0.5% Ophth) 1 drops EYE-BOTH BID [facility] Discontinued Medications Hydrocodone Bitart/Acetaminophen (Hydrocodone/Acet 5/325 Tablet) 1 tab PO NOW ONE Stop: 09/02/21 09:09 Last Admin: 09/02/21 09:23 Dose: 1 tab Documented by: ANAIS Albuterol/Ipratropium (Albuterol/Ipratropium 3 Ml Ampul) 3 ml INH NOW ONE Stop: 09/02/21 09:55 Last Admin: 09/02/21 10:14 Dose: 3 ml Documented by: JESUS Furosemide (Furosemide 20 Mg Tablet) 20 mg PO NOW ONE Stop: 09/02/21 09:55 Last Admin: 09/02/21 10:26 Dose: 20 mg Documented by: ESTUARDO Metoprolol Succinate (Metoprolol Er 50 Mg Tablet) 50 mg PO NOW ONE Stop: 09/02/21 09:55 Last Admin: 09/02/21 10:27 Dose: 50 mg Documented by: ESTUARDO Vital Signs Vital signs: Vital Signs - 8 hr 09/02/21 10:00 09/02/21 10:01 09/02/21 10:14 Pulse Rate 105 H 109 H 101 H Respiratory Rate 30 H 30 H 24 Blood Pressure 155/78 H Pulse Oximetry 97 97 97 09/02/21 10:27 09/02/21 10:30 09/02/21 11:00 Pulse Rate 109 H 91 H 88 Respiratory Rate 30 H 23 Blood Pressure 189/129 H 155/70 H 126/65 Pulse Oximetry 100 100 09/02/21 11:30 09/02/21 12:00 09/02/21 12:30 Pulse Rate 96 H 82 97 H Respiratory Rate 29 H 24 22 Blood Pressure 139/66 109/59 L 119/62 Pulse Oximetry 94 99 09/02/21 13:00 09/02/21 13:30 09/02/21 14:00 Pulse Rate 85 85 97 H Respiratory Rate 23 25 H 20 Blood Pressure 127/61 136/64 138/69 Pulse Oximetry 96 95 96 Medical Decision Making Lab Data Lab results reviewed: Yes I reviewed the patient's lab results. Result diagrams: 09/02/21 09:05 09/02/21 09:05 Labs: Lab Results 09/02/21 09/02/21 09/02/21 Range/Units 09:05 09:05 09:18 WBC 16.1 H (4.5-11.0) X10^3/uL RBC 4.59 (4.0-5.2) X10^6/uL Hgb 12.8 (12.0-16.0) g/dL Hct 39.1 (36-46) % MCV 85.2 (80-100) fL MCH 28.0 (26-34) PG MCHC 32.9 (30-36) % RDW 22.6 H (11.6-14.8) % Plt Count 317 (150-400) X10^3/uL Neut % (Auto) 93.1 H (50-75) % Lymph % (Auto) 1.9 L (25-40) % [place] % (Auto) 3.9 (3-14) % Eos % (Auto) 0.7 L (2-4) % Baso % (Auto) 0.4 (0-2) % Neut # (Auto) 59015 H (5530-8213) /uL Lymph # (Auto) 300 L (0253-7178) /uL [place] # (Auto) 600 (0-900) /uL Eos # (Auto) 100 (0-450) /uL Baso # (Auto) 100 (0-100) /uL RBC Morphology See below Anisocytosis 1+ H Schistocytes 1+ H Sodium 130 L (137-145) mmol/L Potassium 4.6 (3.4-5.1) mmol/L Chloride 91 L (98-107) mmol/L Carbon Dioxide 29 (22-32) mmol/L BUN 18 H (7-17) mg/dL Creatinine 0.70 (0.52-1.04) mg/dL Estimated GFR > 60.0 (>60) mL/min BUN/Creatinine Ratio 25.7 H (6-22) Glucose 100 (80-110) mg/dL Lactate (0.7-2.1) mmol/L Calcium 9.5 (8.4-10.2) mg/dL Total Bilirubin 1.7 H (0.2-1.3) mg/dL AST 31 (14-36) IU/L ALT 16 (<35) IU/L Alkaline Phosphatase 80 (38-126) U/L Total Creatine Kinase 40 (30-135) U/L CK-MB (CK-2) TNP CK-MB (CK-2) Rel Index TNP Troponin I 0.073 H (0.01-0.034) ng/mL NT-Pro-B Natriuret Pep 6400 H (<450) pg/mL Total Protein 7.7 (6.3-8.2) g/dL Albumin 4.5 (3.5-5.0) g/dL Globulin 3.2 (1.7-4.1) g/dL Albumin/Globulin Ratio 1.4 (1.0-2.8) Lipase 22 L (23-300) U/L Procalcitonin (<0.5) ng/mL Chlamy pneumoniae PCR (Not Detect) Adenovirus (PCR) (Not Detect) B. pertussis DNA (PCR) (Not Detecte) B.parapertussis DNA PCR (Not Detecte) Coronavirus OC43 (PCR) (Not Detect) Coronavirus HKU1 (PCR) (Not Detect) Coronavirus 229E (PCR) (Not Detect) SARS-CoV-2 (PCR) Negative (Negative) Coronavirus NL63 (PCR) (Not Detect) Human Metapneumovir PCR (Not Detect) Influenza Type A (PCR) (Not Detect) Influenza Type B (PCR) (Not Detect) M. pneumoniae (PCR) (Not Detect) Parainfluenza 1 (PCR) (Not Detect) Parainfluenza 2 (PCR) (Not Detect) Parainfluenza 3 (PCR) (Not Detect) Parainfluenza 4 (PCR) (Not Detect) RSV (PCR) (Not Detect) Entero/Rhino (PCR) (Not Detect) 09/02/21 09/02/21 09/02/21 Range/Units 09:40 09:40 09:40 WBC (4.5-11.0) X10^3/uL RBC (4.0-5.2) X10^6/uL Hgb (12.0-16.0) g/dL Hct (36-46) % MCV (80-100) fL MCH (26-34) PG MCHC (30-36) % RDW (11.6-14.8) % Plt Count (150-400) X10^3/uL Neut % (Auto) (50-75) % Lymph % (Auto) (25-40) % [place] % (Auto) (3-14) % Eos % (Auto) (2-4) % Baso % (Auto) (0-2) % Neut # (Auto) (2195-8222) /uL Lymph # (Auto) (2148-4308) /uL [place] # (Auto) (0-900) /uL Eos # (Auto) (0-450) /uL Baso # (Auto) (0-100) /uL RBC Morphology Anisocytosis Schistocytes Sodium (137-145) mmol/L Potassium (3.4-5.1) mmol/L Chloride (98-107) mmol/L Carbon Dioxide (22-32) mmol/L BUN (7-17) mg/dL Creatinine (0.52-1.04) mg/dL Estimated GFR (>60) mL/min BUN/Creatinine Ratio (6-22) Glucose (80-110) mg/dL Lactate 1.1 (0.7-2.1) mmol/L Calcium (8.4-10.2) mg/dL Total Bilirubin (0.2-1.3) mg/dL AST (14-36) IU/L ALT (<35) IU/L Alkaline Phosphatase (38-126) U/L Total Creatine Kinase (30-135) U/L CK-MB (CK-2) CK-MB (CK-2) Rel Index Troponin I (0.01-0.034) ng/mL NT-Pro-B Natriuret Pep (<450) pg/mL Total Protein (6.3-8.2) g/dL Albumin (3.5-5.0) g/dL Globulin (1.7-4.1) g/dL Albumin/Globulin Ratio (1.0-2.8) Lipase (23-300) U/L Procalcitonin 0.06 (<0.5) ng/mL Chlamy pneumoniae PCR (Not Detect) Adenovirus (PCR) (Not Detect) B. pertussis DNA (PCR) (Not Detecte) B.parapertussis DNA PCR (Not Detecte) Coronavirus OC43 (PCR) (Not Detect) Coronavirus HKU1 (PCR) (Not Detect) Coronavirus 229E (PCR) (Not Detect) SARS-CoV-2 (PCR) Negative (Negative) Coronavirus NL63 (PCR) (Not Detect) Human Metapneumovir PCR (Not Detect) Influenza Type A (PCR) (Not Detect) Influenza Type B (PCR) (Not Detect) M. pneumoniae (PCR) (Not Detect) Parainfluenza 1 (PCR) (Not Detect) Parainfluenza 2 (PCR) (Not Detect) Parainfluenza 3 (PCR) (Not Detect) Parainfluenza 4 (PCR) (Not Detect) RSV (PCR) (Not Detect) Entero/Rhino (PCR) (Not Detect) 09/02/21 Range/Units 09:40 WBC (4.5-11.0) X10^3/uL RBC (4.0-5.2) X10^6/uL Hgb (12.0-16.0) g/dL Hct (36-46) % MCV (80-100) fL MCH (26-34) PG MCHC (30-36) % RDW (11.6-14.8) % Plt Count (150-400) X10^3/uL Neut % (Auto) (50-75) % Lymph % (Auto) (25-40) % [place] % (Auto) (3-14) % Eos % (Auto) (2-4) % Baso % (Auto) (0-2) % Neut # (Auto) (7896-3924) /uL Lymph # (Auto) (6646-3083) /uL [place] # (Auto) (0-900) /uL Eos # (Auto) (0-450) /uL Baso # (Auto) (0-100) /uL RBC Morphology Anisocytosis Schistocytes Sodium (137-145) mmol/L Potassium (3.4-5.1) mmol/L Chloride (98-107) mmol/L Carbon Dioxide (22-32) mmol/L BUN (7-17) mg/dL Creatinine (0.52-1.04) mg/dL Estimated GFR (>60) mL/min BUN/Creatinine Ratio (6-22) Glucose (80-110) mg/dL Lactate (0.7-2.1) mmol/L Calcium (8.4-10.2) mg/dL Total Bilirubin (0.2-1.3) mg/dL AST (14-36) IU/L ALT (<35) IU/L Alkaline Phosphatase (38-126) U/L Total Creatine Kinase (30-135) U/L CK-MB (CK-2) CK-MB (CK-2) Rel Index Troponin I (0.01-0.034) ng/mL NT-Pro-B Natriuret Pep (<450) pg/mL Total Protein (6.3-8.2) g/dL Albumin (3.5-5.0) g/dL Globulin (1.7-4.1) g/dL Albumin/Globulin Ratio (1.0-2.8) Lipase (23-300) U/L Procalcitonin (<0.5) ng/mL Chlamy pneumoniae PCR Not detected (Not Detect) Adenovirus (PCR) Not detected (Not Detect) B. pertussis DNA (PCR) Not detected (Not Detecte) B.parapertussis DNA PCR Not detected (Not Detecte) Coronavirus OC43 (PCR) Not detected (Not Detect) Coronavirus HKU1 (PCR) Not detected (Not Detect) Coronavirus 229E (PCR) Not detected (Not Detect) SARS-CoV-2 (PCR) Not detected (Negative) Coronavirus NL63 (PCR) Not detected (Not Detect) Human Metapneumovir PCR Not detected (Not Detect) Influenza Type A (PCR) Not detected (Not Detect) Influenza Type B (PCR) Not detected (Not Detect) M. pneumoniae (PCR) Not detected (Not Detect) Parainfluenza 1 (PCR) Not detected (Not Detect) Parainfluenza 2 (PCR) Not detected (Not Detect) Parainfluenza 3 (PCR) Not detected (Not Detect) Parainfluenza 4 (PCR) Not detected (Not Detect) RSV (PCR) Not detected (Not Detect) Entero/Rhino (PCR) Not detected (Not Detect) Imaging Data Extremity x-ray #1: Radiologist's Impression: [address] [address] XRay Report Signed Patient: Marlene Llamas MR#: [id number] : 1940 Acct:[id number] Age/Sex: 80 / F Date of Service: 09/02/21 Loc: ED Accession Number: [id number] ?? Procedure: XR hip w pel if done RT 2V Ordering Provider: Jesu Novoa D.O. PROCEDURE:? XR HIP W PEL IF DONE RT 2V ? INDICATIONS:? pain with standing ? TECHNIQUE:? AP pelvis and lateral view of the right hip acquired.? ? [facility]ONE [facility] 2V, 03/01/2021, 11:56. ? FINDINGS:? ? Bones:? 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 No fracture.? No perihardware lucency.? Mild protrusio acetabuli noted on the left, unchanged compared to priors ? Soft tissues:? Overlying postoperative changes are noted.? No suspicious soft tissue densities.? Vasculature has atherosclerotic calcifications.? A calcification in the pelvis is likely a calcified uterine fibroid. ? ? IMPRESSION:? Postoperative changes of both hips.? No radiographic complication. ? Dictated by: Arie Champion M.D. on 09/02/2021 at 9:36 ? ? Approved by: Arie Champion M.D. on 09/02/2021 at 9:43?? Extremity x-ray #2: Radiologist's Impression: [address] [address] XRay Report Signed Patient: Marlene Llamas MR#: [id number] : 1940 Acct:[id number] Age/Sex: 80 / F Date of Service: 09/02/21 Loc: ED Accession Number: [id number] ?? Procedure: XR femur RT min 2V Ordering Provider: Jesu Novoa D.O. PROCEDURE:? XR FEMUR RT MIN 2V ? INDICATIONS:? pain with standing ? TECHNIQUE:? 4 views of the femur were acquired.? ? COMPARISON:? None. ? FINDINGS:? ? Bones:? Postoperative changes of right bipolar hip replacement.? No perihardware lucency or acute fracture.? The right knee has severe tricompartmental degenerative changes.? No fractures or dislocations.? No suspicious bony lesions.? ? Soft tissues:? No suspicious soft tissue calcifications or masses.? Vasculature demonstrates atherosclerotic calcifications. ? IMPRESSION:? 1. Postoperative changes of the right hip without radiographic complication. 2. Severe right knee osteoarthritis. ? ? Dictated by: Arie Champion M.D. on 09/02/2021 at 9:43 ? ? Approved by: Arie Champion M.D. on 09/02/2021 at 9:45 Chest x-ray: Radiologist's Impression: Probably why are not getting your [address] [address] XRay Report Signed Patient: Marlene Llamas MR#: [id number] : 1940 Acct:[id number] Age/Sex: 80 / F Date of Service: 11/23/21 Loc: ED Accession Number: [id number] ?? Procedure: XR chest 1V Ordering Provider: Jesu Novoa D.O. PROCEDURE:? XR CHEST 1V ? INDICATIONS:? SOB/hypoxia ? TECHNIQUE:? One view of the chest was acquired.? ? COMPARISON:? [facility], CR, XR CHEST 2V, 04/30/2021, 10:43. ? FINDINGS:? ? Surgical changes and devices:? None.? ? Lungs and pleura:? No focal consolidation or mass.? The lungs are hyperinflated. Interstitial prominence is unchanged compared to the prior study and is likely chronic.? ? Mediastinum:? Mediastinal contours appear normal.? Heart size is normal.? The aorta has atherosclerotic calcifications. ? Bones and chest wall:? No suspicious bony lesions.? Overlying soft tissues appear unremarkable.? The right shoulder demonstrates severe degenerative changes and joint space loss. ? IMPRESSION:? 1. The lungs are hyperinflated with chronic changes, possibly COPD. 2. 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 ? ? Dictated by: Arie Champion M.D. on 09/02/2021 at 9:45 ? ? Approved by: Arie Champion M.D. on 09/02/2021 at 9:47? ECG Data Attestation: I personally reviewed and interpreted this ECG as follows: Interpretation: Sinus tachycardia Ventricular rate 108 Normal axis Normal QRS Nonspecific ST T wave changes MDM Narrative Medical decision making narrative: X-ray shows no signs of fracture. Upon arrival patient was tachypneic. She did report shortness of breath. Oxygen saturation was 76% on room air. She is carlos kristin on oxygen. This improved. This also improved her symptoms. It appears that over the past several days she has had quite a bit of dyspnea on exertion. She states that now just standing up and going to the toilet causes her to become very short of breath. She does not have oxygen at home. Even just sitting in bed off of oxygen she drops to 80%. Patient clinically not in heart failure. Potentially could be COPD. Was given steroids. Discussed case with hospitalist. Will admit for further evaluation and treatment. Discharge Plan Departure Patient Disposition: Admitted As Inpatient Clinical Impression: COPD (chronic obstructive pulmonary disease), Hypoxia, Dyspnea on exertion Admit Date/Time: 09/02/21 14:14 Admit Provider: Tarun Sahu
--- NOTE | 2021-09-02 09:07 | DI.RAD.S_ITS ---
PROCEDURE: XR CHEST 1V INDICATIONS: SOB/hypoxia TECHNIQUE: One view of the chest was acquired. COMPARISON: , CR, XR CHEST 2V, 04/30/2021, 10:43. FINDINGS: Surgical changes and devices: None. Lungs and pleura: No focal consolidation or mass. The lungs are hyperinflated. Interstitial prominence is unchanged compared to the prior study and is likely chronic. Mediastinum: Mediastinal contours appear normal. Heart size is normal. The aorta has atherosclerotic calcifications. Bones and chest wall: No suspicious bony lesions. Overlying soft tissues appear unremarkable. The right shoulder demonstrates severe degenerative changes and joint space loss. IMPRESSION: 1. The lungs are hyperinflated with chronic changes, possibly COPD. 2. 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 Dictated by: Arie Champion M.D. on 09/02/2021 at 9:45 Approved by: Arie Champion M.D. on 09/02/2021 at 9:47
[2021-09-02] MEDS: HYDROCODONE/ACET 5/325 TABLET 1 TAB PO (09:23)
[2021-09-02 09:50] LABS: Add Manual Diff / Slide Review NO; Basophils Absolute Auto 100 /uL (0-100); Basophils Percent Auto 0.4 % (0-2); Eosinophils Absolute Auto 100 /uL (0-450); Eosinophils Percent Auto 0.7 % (2-4); Hematocrit 39.1 % (36-46); Hemoglobin 12.8 g/dL (12.0-16.0); Lymphocytes Absolute Auto 300 /uL (1100-4500); Lymphocytes Percent Auto 1.9 % (25-40); Mean Corpuscular HGB Conc 32.9 % (30-36); Mean Corpuscular Volume 85.2 fL (80-100); Monocytes Absolute Auto 600 /uL (0-900); Monocytes Percent Auto 3.9 % (3-14); Neutrophils Absolute Auto 15000 /uL (1500-7000); Neutrophils Percent Auto 93.1 % (50-75); Platelet Count 317 X10^3/uL (150-400); Red Blood Cell Count 4.59 X10^6/uL (4.0-5.2); Red Cell Distribution Width 22.6 % (11.6-14.8); White Blood Cell Count 16.1 X10^3/uL (4.5-11.0)
[2021-09-02 09:51] LABS: COVID19 -Nasal RAPID Negative (Negative)
[2021-09-02 10:13] LABS: Lactate (Lactic Acid) 1.1 mmol/L (0.7-2.1)
[2021-09-02] MEDS: ALBUTEROL/IPRATROPIUM 3 ML AMPUL INH ×2 (10:14→21:56)
[2021-09-02 10:17] LABS: NT-proBNP (BNP-Adult 18+) 6400 pg/mL (<450); Troponin I 0.073 ng/mL (0.01-0.034)
[2021-09-02] MEDS: FUROSEMIDE 20 MG TABLET PO (10:26)
[2021-09-02] MEDS: METOPROLOL ER 50 MG TABLET PO (10:27)
[2021-09-02 10:36] LABS: Anisocytosis 1+; Schistocytes 1+
[2021-09-02 10:36] LABS: Procalcitonin 0.06 ng/mL (<0.5)
[2021-09-02 11:01] LABS: Alanine Aminotransferase 16 IU/L (<35); Albumin 4.5 g/dL (3.5-5.0); Albumin Globulin Ratio 1.4 (1.0-2.8); Alkaline Phosphatase 80 U/L (38-126); Aspartate Aminotransferase 31 IU/L (14-36); BUN Creatinine Ratio 25.7 (6-22); Bilirubin Total 1.7 mg/dL (0.2-1.3); Blood Urea Nitrogen 18 mg/dL (7-17); Calcium 9.5 mg/dL (8.4-10.2); Carbon Dioxide 29 mmol/L (22-32); Chloride 91 mmol/L (98-107); Creatine Kinase 40 U/L (30-135); Estimated Glomerular Filt Rate > 60.0 mL/min (>60); Globulin 3.2 g/dL (1.7-4.1); Glucose 100 mg/dL (80-110); HEMOLYSIS < 15 (0-50); Lipase 22 U/L (23-300); Potassium 4.6 mmol/L (3.4-5.1); Sodium 130 mmol/L (137-145); Total Protein 7.7 g/dL (6.3-8.2)
[2021-09-02 11:17] LABS: Adenovirus Not Detected (Not Detect); B. parapertussis Not Detected (Not Detecte); Bordetella pertussis Not Detected (Not Detecte); Chlamydophila pneumoniae Not Detected (Not Detect); Coronavirus 229E Not Detected (Not Detect); Coronavirus HKU1 Not Detected (Not Detect); Coronavirus NL 63 Not Detected (Not Detect); Coronavirus OC43 Not Detected (Not Detect); Human Metapneumovirus Not Detected (Not Detect); Human Rhinovirus/Enterovirus Not Detected (Not Detect); Influenza A Not Detected (Not Detect); Influenza B Not Detected (Not Detect); Mycoplasma pneumoniae Not Detected (Not Detect); Parainfluenza Virus 1 Not Detected (Not Detect); Parainfluenza Virus 2 Not Detected (Not Detect); Parainfluenza Virus 3 Not Detected (Not Detect); Parainfluenza Virus 4 Not Detected (Not Detect); Respiratory Syncytial Virus Not Detected (Not Detect); SARS- CoV-2 Not Detected (Not Detecte)
[2021-09-02 11:25] LABS: COVID19 - ADMIT (NP swab/PCR) Negative (Negative)
--- NOTE | 2021-09-02 15:45 | CM.DANOTE ---
DCP Assessment Note Patient is 80 y/o female who presents to the ED with concern for right knee and hip discomfort as well as shortness of breath. Patient has hx of COPD. Patient has Medicare and [employer] insurance. Patient endorses that she is a member for the [employer] in [place] and receives support and services from the local [facility] [employer] ([place] and [place]). Patient endorses that [place] [employer] has lent her DME walker and [facility] [employer] delivers food to her home regularly. Patient is A/Ox4, patient endorses that she lives alone but her sister lives down the road and checks on her every morning and evening. Patient endorses that she also receives support and visits from her sister in law. Patient endorses that her sister assists her with meal prep, chores and shopping and her sister in law has assisted with toileting and bathing. Patient endorses that she will be getting a caregiver soon. Patient endorses that she uses a cane at home and also has a walker. Patient endorses that she quit driving this year and relies on family for transportation. Patient endorses her satisfaction with her living situation and states that things are going fine. Patient endorses that she has the senior resource guide and is aware of resources available to her. Plan: DCP to f/u with POC, patient to be admitted to acute care. OSBALDO Presley Discharge Planning/Care Management CM Discharge Assessment Start: 09/02/21 15:38 Freq: Status: Active Protocol: Document 09/02/21 15:38 LN (Rec: 09/02/21 15:45 LN [id number]) Discharge Planning Assessment Assigned Plastic Parts Designer OSBALDO Craft Advance Directives? No History Provided By Patient,Medical Record Has Patient been admitted in last 30 No days? Prior Living Arrangements House Household Members none Comment Patient states her sister lives down the road from her. Type of transporation used prior to Relies on Others admit Comment Patient states that she stopped driving this year and receives rides from sister. Independent with ADL's No Is patient alert and oriented? Yes Needs Assistance With Bathing,Meal Prep,Toileting, Home Chores / Shopping Comment Patient endorses that her sister and sister in law assist with ADLs and she is supposed to be getting a caregiver soon. Caregiver for Another No Comment Patient was a [facility] in February 2021 after hospital d/c. DME Already Rented / Owned FWW / Walker,Cane Comment Patient endorses she owns two canes and is borrowing a walker from the [facility]. Patient/Family Preference Group Home Facility,Home with Home Health Comment Patient endorses satisfaction with her situation at home. Barriers to Discharge No Comment Patient lives alone and receives daily support from family. Review Status In Process Please Provide Date Initial DC 09/02/21 Assessment Was Performed Next Review Type Continued Stay Review
[2021-09-02] MEDS: SUCRALFATE 1 GM TABLET PO ×2 (16:53→21:59)
[2021-09-02] MEDS: ASPIRIN 325 MG TABLET PO (16:53)
[2021-09-02] MEDS: cefTRIAXone 1,000 MG in SODIUM CHLORIDE 0.9% 100 ML 200 ML IV (16:53)
--- NOTE | 2021-09-02 17:05 | PM.HP.1 ---
History of Present Illness History of Present Illness Date Patient Seen: 09/02/21 Chief complaint: Right hip pain Narrative: THIS IS AN 80-YEAR-OLD FEMALE FOR HISTORY OF COPD DUE TO TOBACCO USE. SHE STATED THAT SHE USED TOBACCO FOR ABOUT 42 YEARS. SHE DENIES ANY PRIOR HISTORY OF CAD. SHE DOES HAVE RHEUMATOID ARTHRITIS. SHE IS ON METHOTREXATE SHE CAME TO THE HOSPITAL REPORTEDLY DUE TO HIP PAIN. HOWEVER DURING HER WORKUP IN THE ER SHE DEVELOPED SOME SHORTNESS OF BREATH WHERE SATURATION WAS NOTED TO BE ON THE LOWER 70S. SHE DID REPORT THAT SHE DOES GET SHORT OF BREATH QUITE EASILY /WITH MINIMAL EXERTION. SHE DENIES ANY CHEST PAIN. NO CHEST FROM THE PATIENT. SHE DENIES ANY SYNCOPE OR PRESYNCOPAL SYMPTOMS. SHE DENIES ANY DIAPHORESIS. NO NAUSEA OR VOMITING. NO ORTHOPNEA. NO INCREASING SWELLING TO LOWER EXTREMITIES IN THE ER, SIGNIFICANT TO GO CYTOSIS APPRECIATED. LOW-SODIUM ALSO NOTED. KIDNEY FUNCTIONS FAIRLY STABLE. COVID-19 WELL VIRAL PANEL TESTING WAS NEGATIVE Patient History Medical History Rheumatoid arthritis Tobacco abuse Surgical History History of left hip replacement Family & Social History Social History: household members none Prior Living Arrangements House Safety & Behavioral: Feels Safe in Current Yes Environment Been Physically Hurt or No Threatened By a Person Suicidal Ideation Description None Suicide Plan Description No Plan Tobacco & Substance use: Smoking Status Former smoker alcohol intake current alcohol intake frequency holiday/special occasion Substance Use Type does not use Meds Home Medications and Allergies Home Medications Medication Instructions Recorded Confirmed Type timolol maleate 0.5 % eye drops 1 drp OPHTH BID #5 ml 04/15/13 09/02/21 History albuterol sulfate 90 mcg/actuation 1 inh INHALATION Q4-6H PRN #1 ea 03/04/21 09/02/21 Rx breath activated powder inhaler methotrexate sodium 2.5 mg tablet 15 mg PO QWEEK #30 tab 03/04/21 09/02/21 Rx acetaminophen 325 mg tablet 650 mg PO QAM 09/02/21 09/02/21 History calcium carbonate 500 mg calcium 500 mg PO Q6HR PRN 09/02/21 09/02/21 History (1,250 mg) chewable tablet fluticasone 250 mcg-salmeterol 50 1 inh INHALATION BID 09/02/21 09/02/21 History mcg/dose blistr powdr for inhalation (Advair Diskus) folic acid 1 mg tablet 1 mg PO QAM 09/02/21 09/02/21 History furosemide 20 mg tablet 20 mg PO QAM 09/02/21 09/02/21 History metoprolol succinate 50 mg 50 mg PO QAM 09/02/21 09/02/21 History tablet,extended release 24 hr omeprazole 20 mg capsule,delayed 20 mg PO QAM 09/02/21 09/02/21 History release pantoprazole 40 mg tablet,delayed 40 mg PO QAM 09/02/21 09/02/21 History release (Protonix) polyethylene glycol 3350 17 gram 17 g PO QAM 09/02/21 09/02/21 History oral powder packet sodium chloride 1 gram tablet 1 g PO QAM 09/02/21 09/02/21 History Allergies Allergy/AdvReac Type Severity Reaction Status Date / Time clindamycin [CLINDAMYCIN] Allergy Mild RASH Verified 09/02/21 09:23 rosuvastatin [ROSUVASTATIN] Allergy Mild ACHING Verified 09/02/21 09:23 MUSCLES Review of Systems Review of Systems Narrative: ALL SYSTEM REVIEWED. NEGATIVE ON S NOTED ABOVE IN HPI Exam Vital Signs (past 8 hours): - 09/02/21 09:25 09/02/21 09:30 09/02/21 10:00 Pulse Rate 109 H 110 H 105 H Respiratory Rate 33 H 30 H Blood Pressure 193/93 H 187/129 H Pulse Oximetry 97 89 L 97 09/02/21 10:01 09/02/21 10:14 09/02/21 10:27 Pulse Rate 109 H 101 H 109 H Respiratory Rate 30 H 24 Blood Pressure 155/78 H 189/129 H Pulse Oximetry 97 97 09/02/21 10:30 09/02/21 11:00 09/02/21 11:30 Pulse Rate 91 H 88 96 H Respiratory Rate 30 H 23 29 H Blood Pressure 155/70 H 126/65 139/66 Pulse Oximetry 100 100 94 09/02/21 12:00 09/02/21 12:30 09/02/21 13:00 Pulse Rate 82 97 H 85 Respiratory Rate 24 22 23 Blood Pressure 109/59 L 119/62 127/61 Pulse Oximetry 99 96 09/02/21 13:30 09/02/21 14:00 09/02/21 14:30 Pulse Rate 85 97 H 86 Respiratory Rate 25 H 20 24 Blood Pressure 136/64 138/69 131/61 Pulse Oximetry 95 96 09/02/21 15:00 09/02/21 15:30 Pulse Rate 92 H 97 H Respiratory Rate 27 H Blood Pressure 140/89 193/83 H Pulse Oximetry 94 Oxygen Delivery Method Nasal Cannula Oxygen Flow Rate 1 Narrative Exam Narrative: NO ACUTE DISTRESS. PATIENT IS ALERT ORIENTED X3. THIN / CACHECTIC VITAL SIGNS STABLE HEAD ATRAUMATIC NORMOCEPHALIC NECK : SUPPLE WITHOUT ADENOPATHY NO CAROTID BRUITS EYE: EOMI, PERRLA, NORMAL CONJUNCTIVA; NO JAUNDICE CHEST: REGULAR RATE. NO RUBS. PMI IS NON DISPLACED. NORMAL S1-S2 PULMONARY: WHEEZING APPRECIATED. NO RHONCHI. NO RALES. NO PLEURAL RUBS DECREASED BS OVER THE BASES. MILD BIBASILAR CRACKLES NOTED; NO INCREASED DULLNESS TO PERCUSSION ABDOMEN: SOFT. NONTENDER. NONDISTENDED. BOWEL SOUNDS ARE PRESENT IN ALL 4 QUADRANTS. EXTREMITIES: TRACE BILATERAL LOWER EXTREMITYEDEMA.. NO CYANOSIS CLUBBING NOTED. NEURO: CRANIAL NERVES 2-12 GROSSLY INTACT. NO FOCAL NEUROLOGICAL DEFICIT NOTED. MSK: NORMAL RANGE OF MOTION FOR AGE. NO JOINT EFFUSION. POOR MUSCULATURE SKIN: FAIR SKIN TURGOR FOR AGE; NO ECCHYMOSIS. NO LESION. GOOD TURGOR.; NO RASHES PSYCH : APPROPRIATE MOOD AND AFFECT. ALERT AWAKE ORIENTED X3 Objective Labs Result Diagrams: 09/02/21 09:05 09/02/21 09:05 Labs: Laboratory Results - last 24 hr 09/02/21 09/02/21 09/02/21 09:05 09:05 09:18 WBC 16.1 H RBC 4.59 Hgb 12.8 Hct 39.1 MCV 85.2 MCH 28.0 MCHC 32.9 RDW 22.6 H Plt Count 317 Neut % (Auto) 93.1 H Lymph % (Auto) 1.9 L Pershing % (Auto) 3.9 Eos % (Auto) 0.7 L Baso % (Auto) 0.4 Neut # (Auto) 64000 H Lymph # (Auto) 300 L Pershing # (Auto) 600 Eos # (Auto) 100 Baso # (Auto) 100 RBC Morphology See below Anisocytosis 1+ H Schistocytes 1+ H Sodium 130 L Potassium 4.6 Chloride 91 L Carbon Dioxide 29 BUN 18 H Creatinine 0.70 Estimated GFR > 60.0 BUN/Creatinine Ratio 25.7 H Glucose 100 Lactate Calcium 9.5 Total Bilirubin 1.7 H AST 31 ALT 16 Alkaline Phosphatase 80 Total Creatine Kinase 40 CK-MB (CK-2) TNP CK-MB (CK-2) Rel Index TNP Troponin I 0.073 H NT-Pro-B Natriuret Pep 6400 H Total Protein 7.7 Albumin 4.5 Globulin 3.2 Albumin/Globulin Ratio 1.4 Lipase 22 L Procalcitonin Chlamy pneumoniae PCR Adenovirus (PCR) B. pertussis DNA (PCR) B.parapertussis DNA PCR Coronavirus OC43 (PCR) Coronavirus HKU1 (PCR) Coronavirus 229E (PCR) SARS-CoV-2 (PCR) Negative Coronavirus NL63 (PCR) Human Metapneumovir PCR Influenza Type A (PCR) Influenza Type B (PCR) M. pneumoniae (PCR) Parainfluenza 1 (PCR) Parainfluenza 2 (PCR) Parainfluenza 3 (PCR) Parainfluenza 4 (PCR) RSV (PCR) Entero/Rhino (PCR) 09/02/21 09/02/21 09/02/21 09:40 09:40 09:40 WBC RBC Hgb Hct MCV MCH MCHC RDW Plt Count Neut % (Auto) Lymph % (Auto) Pershing % (Auto) Eos % (Auto) Baso % (Auto) Neut # (Auto) Lymph # (Auto) Pershing # (Auto) Eos # (Auto) Baso # (Auto) RBC Morphology Anisocytosis Schistocytes Sodium Potassium Chloride Carbon Dioxide BUN Creatinine Estimated GFR BUN/Creatinine Ratio Glucose Lactate 1.1 Calcium Total Bilirubin AST ALT Alkaline Phosphatase Total Creatine Kinase CK-MB (CK-2) CK-MB (CK-2) Rel Index Troponin I NT-Pro-B Natriuret Pep Total Protein Albumin Globulin Albumin/Globulin Ratio Lipase Procalcitonin 0.06 Chlamy pneumoniae PCR Adenovirus (PCR) B. pertussis DNA (PCR) B.parapertussis DNA PCR Coronavirus OC43 (PCR) Coronavirus HKU1 (PCR) Coronavirus 229E (PCR) SARS-CoV-2 (PCR) Negative Coronavirus NL63 (PCR) Human Metapneumovir PCR Influenza Type A (PCR) Influenza Type B (PCR) M. pneumoniae (PCR) Parainfluenza 1 (PCR) Parainfluenza 2 (PCR) Parainfluenza 3 (PCR) Parainfluenza 4 (PCR) RSV (PCR) Entero/Rhino (PCR) 09/02/21 09:40 WBC RBC Hgb Hct MCV MCH MCHC RDW Plt Count Neut % (Auto) Lymph % (Auto) Pershing % (Auto) Eos % (Auto) Baso % (Auto) Neut # (Auto) Lymph # (Auto) Pershing # (Auto) Eos # (Auto) Baso # (Auto) RBC Morphology Anisocytosis Schistocytes Sodium Potassium Chloride Carbon Dioxide BUN Creatinine Estimated GFR BUN/Creatinine Ratio Glucose Lactate Calcium Total Bilirubin AST ALT Alkaline Phosphatase Total Creatine Kinase CK-MB (CK-2) CK-MB (CK-2) Rel Index Troponin I NT-Pro-B Natriuret Pep Total Protein Albumin Globulin Albumin/Globulin Ratio Lipase Procalcitonin Chlamy pneumoniae PCR Not detected Adenovirus (PCR) Not detected B. pertussis DNA (PCR) Not detected B.parapertussis DNA PCR Not detected Coronavirus OC43 (PCR) Not detected Coronavirus HKU1 (PCR) Not detected Coronavirus 229E (PCR) Not detected SARS-CoV-2 (PCR) Not detected Coronavirus NL63 (PCR) Not detected Human Metapneumovir PCR Not detected Influenza Type A (PCR) Not detected Influenza Type B (PCR) Not detected M. pneumoniae (PCR) Not detected Parainfluenza 1 (PCR) Not detected Parainfluenza 2 (PCR) Not detected Parainfluenza 3 (PCR) Not detected Parainfluenza 4 (PCR) Not detected RSV (PCR) Not detected Entero/Rhino (PCR) Not detected Assessment & Plan Assessment & Plan narrative: PROBLEM LIST 1. ACUTE ON CHRONIC HYPOXIC RESPIRATORY FAILURE. SECONDARY TO COPD EXACERBATION 2. ACUTE COPD EXACERBATION 2A--- ELEVATED TROPONIN. CONSIDER NON STEMI TYPE 2 SECONDARY TO CARDIAC STRAIN RELATED TO ACUTE RESPIRATORY FAILURE 3- POSSIBLE SEPSIS WERE PRESENT ON ARRIVAL 4- LEUKOCYTOSIS 5- RHEUMATOID ARTHRITIS FOR HISTORY PLAN IN REGARD TO THE ELEVATED TROPONIN SHE IS ON DVT PROPHYLAXIS DOSE OF LOVENOX FOR NOW IF INDICATED WILL SWITCH TO WILL REPEAT TROPONIN LEVEL SERIALLY TO FOLLOW KEEP PATIENT ON TELE AT ALL TIMES PATIENT GIVEN ASPIRIN CHECK LIPID IN THE MORNING CHECK HEMOGLOBIN A1C WELL STRICT BLOOD PRESSURE CONTROL SEGUNDO CONTINUE HOME BETA-JOSE C GET ECHOCARDIOGRAM REFER TO TERTIARY FACILITY FOR OF CARE FOR INDICATED CLINICALLY FOR HER COPD EXACERBATION PATIENT IS ON ROCEPHIN AND DOXYCYCLINE SOLU-MEDROL ORDERED T.I.D. WILL ALSO ADD BREATHING TREATMENTS SCHEDULED AND NEEDED AGGRESSIVE PULMONARY TOILETING CONSIDER CULTURE OF THE SPUTUM IF INDICATED CLINICALLY OXYGEN SUPPLEMENT TO MAINTAIN PROPER OXYGEN SATURATION ABOVE 88% OF TIME SERIAL CHEST X-RAY ABG TO FOLLOW CLINICALLY ADDITIONAL MANAGEMENT PER CLINICAL COURSE PROGNOSIS IS GUARDED DURATION OF STAY BETWEEN 2-5 DAYS Time Spent With Patient Critical Care time: I spent a total of [] minutes of critical care time on this patient's care today; this time is exclusive of procedural time. Quality VTE Deep Vein Thrombosis/Pulmonary Embolism Present on Admission: No
--- NOTE | 2021-09-02 18:17 | DI.ECHO.S_ITS ---
[facility]---------+ [facility] +---------+ : : [address] : [place] : : : : [id number] : : : : Phone: [phone]+ Echocardiogram Report + :Name: ALEXSANDRA GREWAL Study Date: 09/03/2021 Height: 64 in : :[facility] ReadingLocation: Weight: 85 lb : : Gender: Female BSA: 1.4 m2 : :: 1940 Age: 80 yrs BP: 142/72 mmHg: :Reason For Study: ELEVATED TROPONIN : :Ordering Physician: WANG, : :LITO Performed By: Naomi Hooks : :Referring: LITO PIÑA : + Interpretation Summary The left ventricular cavity is small. Proximal septal thickening is noted. The ejection fraction is estimated to be 60-65%. There has been no significant change in LV EF since the previous exam. The right ventricle is normal in size and function. There is moderate to severe mitral regurgitation. Compared to the prior echo study, there has been no change in the severity of mitral regurgitation. The aortic valve is mildly calcified. The aortic valve is not well visualized. There is mildly reduced leaflet mobility. There is no hemodynamically significant valvular aortic stenosis. There is moderate tricuspid regurgitation. The right ventricular systolic pressure is estimated to be at least 63 mmHg based on an estimated right atrial pressure of 8 mm Hg. Compared to the prior echo exam, there has been an increase in the severity of pulmonary hypertension. There is severe luminal irregularity and echogenicity in the abdominal aorta, suggestive of aortic atherosclerotic disease. Procedure: A two-dimensional transthoracic echocardiogram with color flow and Doppler was performed. The study quality was technically adequate. Comparison is made with the echocardiogram of 03/03/2021. The heart rate ranged between 70-94 bpm during the study. The patient was in normal sinus rhythm during the exam. The patient had frequent PACs during the exam. Left Ventricle: The left ventricular cavity is small. Proximal septal thickening is noted. There is no echo evidence for significant left ventricular outflow tract obstruction. There is no thrombus. A false chord is noted (normal variant). The ejection fraction is estimated to be 60-65%. There has been no significant change since the previous exam. Septal motion is consistent with conduction abnormality. Diastolic parameters suggest a relaxation abnormality of the left ventricle, consistent with probable normal filling pressures. Right Ventricle: The right ventricle is normal in size and function. Atria: The left atrium is moderately dilated. The left atrium has remained unchanged in size since the prior echo exam. Right atrial size is normal. There is no Doppler evidence for an interatrial shunt. Mitral Valve: The mitral valve leaflets appear moderately thickened, but open well. The mitral valve leaflets are mildly calcified. There is mild to moderate mitral annular calcification. The mitral valve chordae are thickened and/or calcified. Into chamber's view, there is a subtle prolapse of anterior mitral leaflet. There is moderate to severe mitral regurgitation. Compared to the prior echo study, there has been no change in the severity of mitral regurgitation. Aortic Valve: The aortic valve is not well visualized. The aortic valve is mildly calcified. There is mildly reduced leaflet mobility. There is no hemodynamically significant valvular aortic stenosis. No aortic regurgitation is present. Tricuspid Valve: Tricuspid leaflets are thickened. Redundant chordae seen. There is moderate tricuspid regurgitation. The right ventricular systolic pressure is estimated to be at least 63 mmHg based on an estimated right atrial pressure of 8 mm Hg. Compared to the prior echo exam, there has been no change in TR severity. Compared to the prior echo exam, there has been an increase in the severity of pulmonary hypertension. Pulmonic Valve: The pulmonic valve is not well visualized. Great Vessels: The aortic root is normal size. There is aortic root sclerosis/calcification. The ascending aorta could not be visualized. There is severe luminal irregularity and echogenicity in the abdominal aorta, suggestive of aortic atherosclerotic disease. The IVC is of normal diameter and collapses less than 50% with a sniff. This suggests a right atrial pressure of 8 mm Hg. Pericardium/ Pleura There is no pericardial effusion. There is no pleural effusion. MMode/2D Measurements & Calculations LVIDd: 3.2 cm LVOT diam: 2.0 cm LVIDs: 2.1 cm Ao root diam: 2.8 cm FS: 33.0 % IVSd: 0.89 cm LVPWd: 0.71 cm LV persaud. diameter/BSA (cm/m^2): 2.3 LV sys. diameter/BSA (cm/m^2): 1.6 LA A2 area: 17.5 cm2 RA long axis: 4.5 cm LA A4 area: 17.8 cm2 RA area: 13.3 cm2 LA length (vol): 4.7 cm RA vol: 33.4 ml LA vol: 55.7 ml RA : 24.6 ml/m2 LA vol index: 41.0 ml/m2 IVC diam: 1.5 cm RVD1 (basal): 3.6 cm TAPSE: 1.6 cm Doppler Measurements & Calculations Ao V2 max: 129.6 cm/sec LVOT Max David: 64.4 cm/sec Ao V2 mean: 88.6 cm/sec LV V1 max P.7 mmHg Ao max P.7 mmHg LV V1 VTI: 11.9 cm Ao mean P.5 mmHg JENNA(I,D): 1.4 cm2 Ao V2 VTI: 25.3 cm JENNA(V,D): 1.5 cm2 sev ratio: 0.47 JENNA indexed to BSA (cm^2/m^2): 1.1 MV E max david: 92.0 cm/sec TR max david: 369.4 cm/sec MV A max david: 93.2 cm/sec TR max P.6 mmHg MV E/A: 0.99 PA V2 max: 77.6 cm/sec Med Peak E' David: 7.9 cm/sec PA V2 mean: 55.5 cm/sec E/E' med: 11.6 PA mean P.3 mmHg Lat Peak E' David: 8.7 cm/sec PA pr(Accel): 49.9 mmHg E/E' lat: 10.6 E/e' average: 11.1 MV dec time: 0.15 sec SV(LVOT): 36.3 ml Reading Physician:01:32 PM
[2021-09-02 19:11] LABS: Hemoglobin A1C% w Est Avg Glu 5.1 % (4.0-6.0)
[2021-09-02 19:22] LABS: Troponin I 0.088 ng/mL (0.01-0.034)
[2021-09-02 19:51] LABS: Cholesterol 227 mg/dL (140-199); HDL Cholesterol 71 mg/dL (40-60); LDL Cholesterol Calculated 133 mg/dL (<100); Triglycerides 114 mg/dL (35-150)
[2021-09-02] MEDS: ALBUTEROL 2.5 MG/3 ML NEB (ADULT) INH (21:51)
[2021-09-02] MEDS: SENNOSIDES 8.6 MG TABLET 17.2 MG PO (21:55)
[2021-09-02] MEDS: ASCORBIC ACID 500 MG TABLET PO (21:55)
[2021-09-02] MEDS: BUDESONIDE 0.5 MG/2 ML NEB INH (21:56)
[2021-09-02] MEDS: DOXYCYCLINE HYCLATE 100 MG TABLET PO (21:58)
[2021-09-02] MEDS: TIMOLOL 0.5% OPHTH 1 DROPS EYE-BOTH (22:07)
[2021-09-03] VITALS (16 sets, daily range): BP systolic 100–161; BP diastolic 43–99; PULSE 62–96; RESP 14–18; TEMP 36.1–36.8; O2SAT 92–100
[2021-09-03] MEDS: SUCRALFATE 1 GM TABLET PO ×4 (07:43→21:28)
[2021-09-03] MEDS: PANTOPRAZOLE DR 20 MG TABLET PO (07:43)
[2021-09-03 09:08] LABS: Add Manual Diff / Slide Review NO; Basophils Absolute Auto 0 /uL (0-100); Basophils Percent Auto 0.2 % (0-2); Eosinophils Absolute Auto 0 /uL (0-450); Hematocrit 39.8 % (36-46); Lymphocytes Absolute Auto 400 /uL (1100-4500); Lymphocytes Percent Auto 2.5 % (25-40); Mean Corpuscular HGB Conc 32.7 % (30-36); Mean Corpuscular Volume 85.7 fL (80-100); Monocytes Absolute Auto 500 /uL (0-900); Monocytes Percent Auto 3.1 % (3-14); Neutrophils Absolute Auto 14500 /uL (1500-7000); Neutrophils Percent Auto 94.2 % (50-75); Platelet Count 320 X10^3/uL (150-400); Red Blood Cell Count 4.65 X10^6/uL (4.0-5.2); Red Cell Distribution Width 22.9 % (11.6-14.8); White Blood Cell Count 15.4 X10^3/uL (4.5-11.0)
[2021-09-03 09:22] LABS: Alanine Aminotransferase 18 IU/L (<35); Albumin 4.5 g/dL (3.5-5.0); Albumin Globulin Ratio 1.3 (1.0-2.8); Alkaline Phosphatase 75 U/L (38-126); Aspartate Aminotransferase 29 IU/L (14-36); BUN Creatinine Ratio 33.3 (6-22); Blood Urea Nitrogen 24 mg/dL (7-17); Calcium 9.7 mg/dL (8.4-10.2); Carbon Dioxide 28 mmol/L (22-32); Chloride 88 mmol/L (98-107); Estimated Glomerular Filt Rate > 60.0 mL/min (>60); Globulin 3.4 g/dL (1.7-4.1); Glucose 130 mg/dL (80-110); HEMOLYSIS < 15 (0-50); Phosphorous 4.1 mg/dL (2.8-4.1); Potassium 4.3 mmol/L (3.4-5.1); Sodium 128 mmol/L (137-145); Total Protein 7.9 g/dL (6.3-8.2)
[2021-09-03 09:31] LABS: NT-proBNP (BNP-Adult 18+) 6440 pg/mL (<450)
[2021-09-03] MEDS: ALBUTEROL/IPRATROPIUM 3 ML AMPUL INH ×2 (09:54→20:26)
[2021-09-03] MEDS: BUDESONIDE 0.5 MG/2 ML NEB INH ×2 (09:54→20:24)
[2021-09-03] MEDS: TIMOLOL 0.5% OPHTH 1 DROPS EYE-BOTH ×2 (10:33→21:34)
[2021-09-03] MEDS: MULTIVIT,CALC,MINS/IRON/FOLIC 1 TABLET 1 TAB PO (10:33)
[2021-09-03] MEDS: ASCORBIC ACID 500 MG TABLET PO ×2 (10:33→21:32)
[2021-09-03] MEDS: ASPIRIN 325 MG TABLET PO (10:33)
[2021-09-03] MEDS: METOPROLOL ER 50 MG TABLET PO (10:33)
[2021-09-03] MEDS: DOXYCYCLINE HYCLATE 100 MG TABLET PO ×2 (10:34→21:28)
[2021-09-03] MEDS: FOLIC ACID 1 MG TABLET PO (10:34)
[2021-09-03] MEDS: polyethylene glycoL 3350 17 GM POWD.PACK PO (10:34)
[2021-09-03] MEDS: SODIUM CHLORIDE 1,000 MG TABLET 1000 MG PO (10:34)
[2021-09-03] MEDS: ENOXAPARIN 40 MG/0.4 ML SYRINGE SUBCUT (10:34)
[2021-09-03 10:45] LABS: Anisocytosis 2+; Polychromasia 1+
--- NOTE | 2021-09-03 12:42 | CM.DPC ---
DCP Cont: SW met bedside with pt and her sister Griselda who confirms that she checks on pt in person twice a day (in the morning and in the evening) and currently no other CG in place or being set up but pt and sister feel that CG needed even if just once or twice a week and especially for bathing. PT ordered and pending and RT just turned off pt's oxygen to determine if she can tolerate room air or if pt will need to be assessed for home O2 prior to d/c. Pt confirms she has a hx of Sig HH in the past and both feel that HH RN/PT/TEST ENGINEER needed at d/c and SW discussed their services and frequency and coverage under Medicare and considered temporary and not LTC. Pt still agreeable and preference is [facility] as pt's brother caren currently using [facility] and they would like pt to have [facility] as well plus [facility] also offers private pay CG in the home as well. SW provided the [employer] guidebook and earmarked PP CG agency list and discussed likely not covered by insurance as pt denies having any LTC insurance. SW discussed likelihood of needing additional assist at home beyond her sister and pt and sister in agreement and sister will help to place calls to PP CG agencies. Pt's sister Griselda also is the primary CG for her spouse and sister's spouse is currently admitted at the hospital as well and therefore Griselda typically is not able to provide 24/7 assist for the pt. CARY Demarco kindly faxed new referral to [facility] for review and SW completed F2F but needs MD signature. Plan: SW to follow for PT eval and recommendations towards plan of home with new [facility] RN/PT/TEST ENGINEER via sister POV and any further identified discharge planning needs.
--- NOTE | 2021-09-03 12:50 | CM.DPNOTE ---
Faxed referral packet to [facility] per Melida and received fax conf. Nilam Robertson CM Asst.
--- NOTE | 2021-09-03 13:15 | PM.PN.1 ---
Subjective Subjective Interval history: PATIENT SEES IN THE ROOM TODAY SHE HAS BEEN TREATED FOR ACUTE COPD EXACERBATION SHE HAS CHRONIC RESPIRATORY FAILURE ARE HOWEVER SHE DOES NOT REPORT BEING ON HOME OXYGEN DENIES ANY INCREASING SHORTNESS OF BREATH FEELING BETTER PATIENT WITH BASELINE DEMENTIA Exam Vital Signs (past 8 hours): - 09/03/21 06:00 09/03/21 07:41 09/03/21 09:57 Temperature 97.4 F L Pulse Rate 82 Respiratory Rate 14 Blood Pressure 147/71 H Pulse Oximetry 94 100 100 09/03/21 10:00 09/03/21 10:33 09/03/21 12:00 Temperature Pulse Rate 82 Respiratory Rate Blood Pressure 147/71 H Pulse Oximetry 98 98 Oxygen Delivery Method Nasal Cannula Oxygen Flow Rate 1 Narrative Exam Narrative: NO ACUTE DISTRESS.? PATIENT IS ALERT ORIENTED X3.? THIN / CACHECTIC VITAL SIGNS STABLE HEAD ATRAUMATIC NORMOCEPHALIC NECK : SUPPLE WITHOUT ADENOPATHY NO CAROTID BRUITS EYE:? EOMI, PERRLA, NORMAL CONJUNCTIVA; NO JAUNDICE CHEST:? REGULAR RATE.? ? NO RUBS.? PMI IS NON DISPLACED.? NORMAL S1-S2 PULMONARY: ? WHEEZING APPRECIATED.? NO RHONCHI.? NO RALES.? NO PLEURAL RUBS DECREASED BS OVER THE BASES.? MILD BIBASILAR CRACKLES NOTED; NO INCREASED DULLNESS TO PERCUSSION ABDOMEN:? SOFT.? NONTENDER.? NONDISTENDED.? BOWEL SOUNDS ARE PRESENT IN ALL 4 QUADRANTS.? EXTREMITIES:? TRACE BILATERAL LOWER EXTREMITYEDEMA..? NO CYANOSIS CLUBBING NOTED. NEURO:? CRANIAL NERVES 2-12 GROSSLY INTACT. NO FOCAL NEUROLOGICAL DEFICIT NOTED. BASELINE DEMENTIA MSK:? NORMAL RANGE OF MOTION FOR AGE.? NO JOINT EFFUSION. POOR MUSCULATURE SKIN: ? FAIR SKIN TURGOR FOR AGE; NO ECCHYMOSIS.? NO LESION. ? GOOD? TURGOR.; NO RASHES PSYCH :? APPROPRIATE MOOD AND AFFECT.? ALERT AWAKE ORIENTED X3 Objective Labs Result Diagrams: 09/03/21 08:37 09/03/21 08:37 Labs: Laboratory Results - last 24 hr 09/02/21 09/02/21 09/02/21 18:45 18:45 18:45 WBC RBC Hgb Hct MCV MCH MCHC RDW Plt Count Neut % (Auto) Lymph % (Auto) Stearns % (Auto) Eos % (Auto) Baso % (Auto) Neut # (Auto) Lymph # (Auto) Stearns # (Auto) Eos # (Auto) Baso # (Auto) RBC Morphology Polychromasia Anisocytosis Sodium Potassium Chloride Carbon Dioxide BUN Creatinine Estimated GFR BUN/Creatinine Ratio Glucose Hemoglobin A1c 5.1 Calcium Phosphorus Magnesium Total Bilirubin AST ALT Alkaline Phosphatase Troponin I 0.088 H NT-Pro-B Natriuret Pep Total Protein Albumin Globulin Albumin/Globulin Ratio Triglycerides 114 Cholesterol 227 H LDL Cholesterol, Calc 133 H HDL Cholesterol 71 H 09/03/21 09/03/21 08:37 08:37 WBC 15.4 H RBC 4.65 Hgb 13.0 Hct 39.8 MCV 85.7 MCH 28.0 MCHC 32.7 RDW 22.9 H Plt Count 320 Neut % (Auto) 94.2 H Lymph % (Auto) 2.5 L Stearns % (Auto) 3.1 Eos % (Auto) 0.0 L Baso % (Auto) 0.2 Neut # (Auto) 98365 H Lymph # (Auto) 400 L Stearns # (Auto) 500 Eos # (Auto) 0 Baso # (Auto) 0 RBC Morphology See below Polychromasia 1+ H Anisocytosis 2+ H Sodium 128 L Potassium 4.3 Chloride 88 L Carbon Dioxide 28 BUN 24 H Creatinine 0.72 Estimated GFR > 60.0 BUN/Creatinine Ratio 33.3 H Glucose 130 H Hemoglobin A1c Calcium 9.7 Phosphorus 4.1 Magnesium 2.0 Total Bilirubin 1.0 AST 29 ALT 18 Alkaline Phosphatase 75 Troponin I NT-Pro-B Natriuret Pep 6440 H Total Protein 7.9 Albumin 4.5 Globulin 3.4 Albumin/Globulin Ratio 1.3 Triglycerides Cholesterol LDL Cholesterol, Calc HDL Cholesterol [facility] Medical History Rheumatoid arthritis Tobacco abuse Surgical History History of left hip replacement Social History household members: none Smoking Status: Former smoker alcohol intake: current Assessment & Plan Assessment & Plan narrative: PROBLEM LIST 1.? ACUTE ON CHRONIC HYPOXIC RESPIRATORY FAILURE.? SECONDARY TO COPD EXACERBATION 2. COPD WITH ACUTE EXACERBATION 2A---? ELEVATED TROPONIN.? CONSIDER NON STEMI TYPE 2 SECONDARY TO CARDIAC STRAIN RELATED TO ACUTE RESPIRATORY FAILURE. AERATING 8 HER CARDIOGRAM 3-? POSSIBLE SEPSIS. PRESENT ON ARRIVAL 4- LEUKOCYTOSIS. ON ANTIBIOTICS 5-? RHEUMATOID ARTHRITIS FOR HISTORY 6---- HYPONATREMIA. LIKELY SIADH ?PLAN 09/02 PATIENT IMPROVED OVERNIGHT WILL HOWEVER RESTRICT FLUID TO DO DECREASE IN SODIUM NOTED OVERNIGHT FLUID RESTRICTED TO 1500 CC DAILY IN BREATHING OR FLUID INTAKE AWAITING ECHOCARDIOGRAM OXYGEN THERAPY TO MAINTAIN PROPER OXYGEN SATURATION ABOVE 88% AT ALL TIMES WITH EVALUATE PATIENT FOR HOME OXYGEN NEED CLOSE TO DISCHARGE ABG AND CHEST X-RAY INDICATED AGGRESSIVE PULMONARY TOILETING PHYSICAL THERAPY TEAM CONSULTED FOR EVALUATION AND TREATMENT INDICATED FALL PRECAUTION TO BE ADMITTED OR TIME ADDITIONAL MEASURE PER CLINICAL COURSE DISCHARGE POSSIBLY IN 2 TO 3 DAYS IF CLINICALLY STABLE 09/01 ?IN REGARD TO THE ELEVATED TROPONIN ?SHE IS ON DVT PROPHYLAXIS DOSE OF LOVENOX FOR NOW ?IF INDICATED WILL SWITCH TO ?WILL REPEAT TROPONIN LEVEL SERIALLY TO FOLLOW ?KEEP PATIENT ON TELE AT ALL TIMES ?PATIENT GIVEN ASPIRIN ?CHECK LIPID IN THE MORNING ?CHECK HEMOGLOBIN A1C WELL ?STRICT BLOOD PRESSURE CONTROL SEGUNDO ?CONTINUE HOME BETA-JOSE C ?GET ECHOCARDIOGRAM ?REFER? TO TERTIARY FACILITY FOR OF CARE FOR INDICATED CLINICALLY ? FOR HER COPD EXACERBATION ?PATIENT IS ON ROCEPHIN AND DOXYCYCLINE ?SOLU-MEDROL ORDERED T.I.D. ?WILL ALSO ADD BREATHING TREATMENTS SCHEDULED AND NEEDED ?AGGRESSIVE PULMONARY TOILETING ?CONSIDER CULTURE OF THE SPUTUM IF INDICATED CLINICALLY ?OXYGEN SUPPLEMENT TO MAINTAIN PROPER OXYGEN SATURATION ABOVE 88% OF TIME ?SERIAL CHEST X-RAY ABG TO FOLLOW CLINICALLY ?ADDITIONAL MANAGEMENT PER CLINICAL COURSE ?PROGNOSIS IS GUARDED Time Spent With Patient Critical Care time: I spent a total of [] minutes of critical care time on this patient's care today; this time is exclusive of procedural time. Quality VTE Deep Vein Thrombosis/Pulmonary Embolism Present on Admission: No
--- NOTE | 2021-09-03 14:05 | PT.IIE ---
Current Diagnoses Acute and chronic respiratory failure with hypoxia (09/02/21) Medical History (Last Reviewed 09/02/21 @ 09:19 by Jesu Novoa DO) Rheumatoid arthritis Tobacco abuse Physical Therapy Inpatient Evaluation/Re-Eval M1 PT/OT-IP Prior Functional Status Start: 09/03/21 15:16 Freq: NEEDED Status: Active Protocol: Document 09/03/21 14:05 AB (Rec: 09/03/21 15:32 AB [email or web address]) Medical Review Prior Functional Status Medical History Reviewed Yes Communication able to make needs known Mobility and Gait pt stated that she is modified independent with all mobilities and ambulation using a FWW; stated that her sister comes in 2x daily to check on her and maybe stays ~ 1 hour. her [id number] also comes in to assist as needed. Activities of Daily Living and IADL's pt stated that her sister provides SBA for shower needs Social History Household Members none Living Arrangements House Number of Floors (Floors) One Floor Number of Stairs To Enter/Railing? 2 steps L rail ascending Home Environment Standard Height Toilet,Tub/ Shower Home Equipment Front Wheel Walker,Bedside Commode,Raised Toilet Seat w/ Armrests,Lift Recliner,Grab Bars In Shower M2 PT-IP Current Condition Start: 09/03/21 15:16 Freq: NEEDED Status: Active Protocol: Document 09/03/21 14:05 AB (Rec: 09/03/21 15:32 AB [email or web address]) Physical Therapy Current Condition Current Condition Evaluation Date 09/03/21 Treatment Diagnosis COPD; difficulty in walking Onset Date 09/02/21 M3 PT-IP Subjective Start: 09/03/21 15:16 Freq: NEEDED Status: Active Protocol: Document 09/03/21 14:05 AB (Rec: 09/03/21 15:32 AB [email or web address]) Subjective Physical Therapy Visit Type Type Initial Evaluation Visit Start Time 14:05 Visit Stop Time 14:30 Total Visit Minutes 25 Number of ARMATURE WINDER REPAIR Visits 0 Physical Therapy Visit Comments Patient Comments agreeable to do PT M4 PT-IP Mobility and Gait Start: 09/03/21 15:16 Freq: NEEDED Status: Active Protocol: Document 09/03/21 14:05 AB (Rec: 09/03/21 15:32 AB [email or web address]) PT-Bed Mobility Assessment Supine to Sit Supine to Sit Maximum Assistance Sit to Supine Sit to Supine Maximum Assistance PT-Transfer Assessment Sit to and From Stand Sit to and from Stand Contact Guard Assistance Equipment Transfer Assistive Device Gait Belt,Front Wheeled Walker Orthotic/Prosthetic Devices or Brace: No Transfers Transfer Destination Bed,Chair Transfer Technique Stand Step Pivot Transfer Ability Level of Assist Minimal Assistance,1 Person Assistance,Use of Upper Extremities Comments Mobility Comments pt sitting on chair. agreed to do PT. pt has O2 on. O2 sat 93%. pt completed sit to stand CGA and initiated ambulation using FWW ~ 2ft but stated that she cannot do it due to c/o R hip pain. instructed pt to transfer to the bed and completed step transfer using FWW. completed sit<> supine max A and max cues. pt unable to elevate RLE up without AD and c/o pain . (+) SOB but unable to obtain O2 sat. completed sit to stand CGA and transferred to chair using fWW min A and cues. positioned pt on the chair. call light and table placed wtihin reach. informed pt regarding d/c recommendation to SNF but pt stated that she does not want to go to SNF. informed pt that she needs more assistance at home and also HHPT. pt stated that her sister is looking into getting more assitance for her. Gait Assessment Gait Gait Assistance Required: Minimum Assistance Distance (Feet) 2 Able to Maintain Weight Bearing Status Yes During Gait Assistive Devices Assistive Device Gait Belt,Front Wheeled Walker Orthotic/Prosthetic Devices or Brace: No Gait Deviations General Gait Pattern Antalgic,Decreased Stride Length,Decreased Feet Clearance,Step-to Gait Factors Limiting Gait Function Factors Limiting Gait Function Decreased Activity Tolerance, Decreased Strength,Difficulty Following Directions,Limited Range of Motion,Pain,Poor Balance,Poor Safety Awareness, Respiratory Distress PT-Balance Assessment Sitting Balance and Reactions Static Sitting Balance Ability Good Dynamic Sitting Balance Ability Good Standing Balance and Reactions Static Standing Balance Ability Fair Dynamic Standing Balance Ability Poor Device Used FWW M5 PT-IP Objective Assessments Start: 09/03/21 15:16 Freq: NEEDED Status: Active Protocol: Document 09/03/21 14:05 AB (Rec: 09/03/21 15:32 AB [email or web address]) Orientation Orientation/Cognition Level of Alertness Alert Orientation Name,Place,Situation Language Function Ability No Deficits Noted Safety Awareness Decreased Safety Awareness Memory Description Short Term Impaired Gross Range of Motion Lower Extremity ROM Assessment Within Functional Limits Strength Lower Extremity Strength Assessment Bilaterally Impaired Comments Strength Comments LLE: 4-/5 RLE: 3+/5 Sensation Assessment Sensation Gross Sensation WNL Muscle Tone Muscle Tone WNL Yes M6 PT-IP Treatment Start: 09/03/21 15:16 Freq: NEEDED Status: Active Protocol: Document 09/03/21 14:05 AB (Rec: 09/03/21 15:32 AB [email or web address]) Physical Therapy Treatment Education Education Provided Safety M7 PT-IP Assessment and Plan Start: 09/03/21 15:16 Freq: NEEDED Status: Active Protocol: Document 09/03/21 14:05 AB (Rec: 09/03/21 15:32 AB [email or web address]) PT Summary Assessment and Plan Potential Rehabilitation Potential Fair Status of Condition at Evaluation Evolving Summary Impairments Pain,ROM,Strength,Balance, Coordination,Sensation,Tone, Cognition,Bed Mobility, Transfers,Gait,Activity Tolerance Assessment Summary pt requiring max A with bed mobility, min A for transfers but unable to ambulate much due to c/o R hip pain and also (+) SOB. pt lives alone and her sister comes in 2x/day to assist her ~ 1-2 hours a day. Pt will need more assistance at home and informed pt regarding SNF rehab but pt stated that she does not want to go to SNF. Pt is aware that she needs more assistance at home and needs to be more mobile to be able to go home safely. will continue to assess progress. Goals Bed Mobility Goal Independent Transfer Goal Independent,Front Wheeled Walker Gait Goal Independent,Front Wheel Walker Gait Distance 100 Other Goals up/marisa 2 steps L rail SBA Days to Meet Goals 10 Frequency of Treatment Frequency Of Treatment Once a Day Treatment Plan Physical Therapy Treatment Plan Bed Mobility Training,Transfer Training,Gait Training, Therapeutic Exercise,Balance Retraining,Post Op Education, Discharge Planning,Hot or Cold Pack,Neuromuscular Re-ed, Coordination Retraining,Manual Therapy Other Recommendations and Next Treatment ambulation Focus Recommendations To Nursing Amount of Assist Needed 1 Person Assist Discharge Recommendations PT Discharge Recommendations Home with 03/05 Assist Available,Home Health,SNF Rehab,Home vs SNF Transportation Needs at Discharge Private Vehicle,Wheelchair/ Cabulance
[2021-09-03] MEDS: ACETAMINOPHEN 325 MG TABLET 650 MG PO ×2 (15:34→21:28)
[2021-09-03] MEDS: cefTRIAXone 1,000 MG in SODIUM CHLORIDE 0.9% 100 ML 200 ML IV (15:34)
--- NOTE | 2021-09-03 17:05 | DIET.PN1 ---
Dietary Progress Note Assessment: 80y F admitted for R hip pain referred to nutrition for severe malnutrition. Per chart review pt 41kg back in February 2021 at last hospitalization where she had surgery for hip fracture with findings of: Subcapital femoral neck fracture with displacement and extremely osteoporotic bone with a large femoral canal. Pt has hx smoking, osteoporosis, rheumatoid arthritis on methotrexate and COPD. Pts BMI is 14.8 (severe for age). Pt is at high risk for folate deficiency secondary to methotrexate use. Pt on heart healthy fluid restriction diet. Recc prioritizing ONS as allowed fluids to assist in repleting nutrition status of this severely malnourished patient. Ht: 162.56 cm Wt: 39 kg BMI: 15.0 UBW: 41kg Last BM: 09/02/21 (09/02/21 14:33) MNA: 9 Zeke Score: 18 Diet: 09/02/21 Lunch Heart Healthy Diet Diet Modifications: 09/03/21 Dinner Fluid Restriction Diet Diet Modifications: Total fluid amount: 1,500 Amount allotted to patient trays: 700 Free water included in total: Yes Fluid in addition to trays: [id number] amount: 500 0931-4416 amount: 200 Nutrition Percent Meal Consumed 100% 09/03/21 13:40 Percent Meal Consumed a yogurt 09/03/21 08:40 Labs: RBC 4.65 X10^6/uL (4.0-5.2) 09/03/21 08:37 Hgb 13.0 g/dL (12.0-16.0) 09/03/21 08:37 Hct 39.8 % (36-46) 09/03/21 08:37 Creatinine 0.72 mg/dL (0.52-1.04) 09/03/21 08:37 Hemoglobin A1c 5.1 % (4.0-6.0) 09/02/21 18:45 Lactate 1.1 mmol/L (0.7-2.1) 09/02/21 09:40 NT-Pro-B Natriuret Pep 6440 pg/mL (<450) H 09/03/21 08:37 Nutrition Diagnosis: Severe Acute on Chronic Protein Calorie Malnutrition r/t inadequate oral intake aeb BMI 14.8 (severe for age), pt 2kg lower body weight than last hospitalization, pt surgical report indicates severe osteoporosis, pt at high risk for folate deficiency secondary to methotrexate use. Interventions: 1. Recc prioritizing ONS Ensure Enlive for part of fluid allowance. Kitchen to deliver ONS to nurse station for fluid monitoring. 2. Recc allowing higher fat diet in this malnourished patient with COPD. Kitchen would like to send double protein portions including full fat yogurt, extra olive oil/cream in dishes. Dietary fat is best way to increase kcals for patients with COPD in addition to high PRO foods. EER: 1350kcals (35kcal/kg per PCM), 60g PRO (1.5g/kg per PCM) Monitoring/Evaluations: ONS tolerance, POs, dietary modifications Electronically Signed by: Sandra Balderrama 09/03/21 17:05 Clinical Dietitian [address] [address]
[2021-09-03] MEDS: SENNOSIDES 8.6 MG TABLET 17.2 MG PO (21:28)
[2021-09-04] VITALS (16 sets, daily range): BP systolic 125–165; BP diastolic 55–84; PULSE 74–103; RESP 14–18; TEMP 36.4–37.1; O2SAT 92–95
[2021-09-04 05:51] LABS: Add Manual Diff / Slide Review NO; Basophils Absolute Auto 200 /uL (0-100); Basophils Percent Auto 1.3 % (0-2); Eosinophils Absolute Auto 0 /uL (0-450); Hemoglobin 11.8 g/dL (12.0-16.0); Lymphocytes Absolute Auto 400 /uL (1100-4500); Lymphocytes Percent Auto 2.3 % (25-40); Mean Corpuscular HGB Conc 32.7 % (30-36); Mean Corpuscular Hemoglobin 27.9 PG (26-34); Mean Corpuscular Volume 85.4 fL (80-100); Monocytes Absolute Auto 500 /uL (0-900); Monocytes Percent Auto 2.5 % (3-14); Neutrophils Absolute Auto 17100 /uL (1500-7000); Neutrophils Percent Auto 93.9 % (50-75); Platelet Count 287 X10^3/uL (150-400); Red Blood Cell Count 4.21 X10^6/uL (4.0-5.2); Red Cell Distribution Width 22.7 % (11.6-14.8); White Blood Cell Count 18.2 X10^3/uL (4.5-11.0)
[2021-09-04 05:58] LABS: Alanine Aminotransferase 12 IU/L (<35); Albumin 3.8 g/dL (3.5-5.0); Albumin Globulin Ratio 1.3 (1.0-2.8); Alkaline Phosphatase 56 U/L (38-126); Aspartate Aminotransferase 21 IU/L (14-36); BUN Creatinine Ratio 46.4 (6-22); Bilirubin Total 0.6 mg/dL (0.2-1.3); Blood Urea Nitrogen 32 mg/dL (7-17); Calcium 9.3 mg/dL (8.4-10.2); Carbon Dioxide 29 mmol/L (22-32); Chloride 90 mmol/L (98-107); Estimated Glomerular Filt Rate > 60.0 mL/min (>60); Glucose 134 mg/dL (80-110); HEMOLYSIS < 15 (0-50); Phosphorous 3.3 mg/dL (2.8-4.1); Potassium 4.4 mmol/L (3.4-5.1); Sodium 127 mmol/L (137-145); Total Protein 6.8 g/dL (6.3-8.2)
[2021-09-04] MEDS: BUDESONIDE 0.5 MG/2 ML NEB INH ×2 (06:03→21:35)
[2021-09-04] MEDS: ALBUTEROL/IPRATROPIUM 3 ML AMPUL INH ×3 (06:03→21:34)
[2021-09-04 06:04] LABS: NT-proBNP (BNP-Adult 18+) 5040 pg/mL (<450)
[2021-09-04] MEDS: ACETAMINOPHEN 325 MG TABLET 650 MG PO ×3 (06:24→22:58)
[2021-09-04] MEDS: SUCRALFATE 1 GM TABLET PO ×4 (06:25→22:52)
[2021-09-04] MEDS: PANTOPRAZOLE DR 20 MG TABLET PO (06:43)
--- NOTE | 2021-09-04 06:54 | PC.NURSE ---
alert, oriented voices needs, 1pa mobility, toileting via BSC. reports 5/10 generalized pain, medicated x 2 w/ apap 650mg w/ good effect. no dyspnea, no SOB noted. satting fine on RA thru the night. anticipate d/c home today.
[2021-09-04 07:16] LABS: Anisocytosis 2+; Polychromasia 1+
[2021-09-04] MEDS: DOXYCYCLINE HYCLATE 100 MG TABLET PO ×2 (09:31→22:52)
[2021-09-04] MEDS: MULTIVIT,CALC,MINS/IRON/FOLIC 1 TABLET 1 TAB PO (09:31)
[2021-09-04] MEDS: ENOXAPARIN 30 MG/0.3 ML SYRINGE SUBCUT (09:31)
[2021-09-04] MEDS: FOLIC ACID 1 MG TABLET PO (09:31)
[2021-09-04] MEDS: ASPIRIN 325 MG TABLET PO (09:31)
[2021-09-04] MEDS: ASCORBIC ACID 500 MG TABLET PO ×2 (09:31→22:52)
[2021-09-04] MEDS: TIMOLOL 0.5% OPHTH 1 DROPS EYE-BOTH ×2 (09:32→22:52)
[2021-09-04] MEDS: METOPROLOL ER 50 MG TABLET PO (09:50)
[2021-09-04] MEDS: SODIUM CHLORIDE 1,000 MG TABLET 1000 MG PO ×2 (10:40→22:52)
--- NOTE | 2021-09-04 14:20 | PT.IPTN ---
Current Diagnoses Acute and chronic respiratory failure with hypoxia (09/02/21) Physical Therapy Treatment Note M2 PT-IP Current Condition Start: 09/03/21 15:16 Freq: NEEDED Status: Active Protocol: Document 09/03/21 14:05 AB (Rec: 09/03/21 15:32 AB [email or web address]) Physical Therapy Current Condition Current Condition Evaluation Date 09/03/21 Treatment Diagnosis COPD; difficulty in walking Onset Date 09/02/21 M3 PT-IP Subjective Start: 09/03/21 15:16 Freq: NEEDED Status: Active Protocol: Document 09/04/21 10:46 ER (Rec: 09/04/21 14:20 ER [id number]) Subjective Physical Therapy Visit Type Type Treatment Note Visit Start Time 10:46 Visit Stop Time 11:22 Total Visit Minutes 36 Notes WIL Wahl lead treatment and provided education under the direct supervision and instruction of KARINA Scanlon. Number of CLOTH STRETCHER Visits 1 Physical Therapy Visit Comments Patient Comments Agreeable to do PT. Agreed that she is not strong enough to go home on her own at this time. Patient Goals Pt agreeable to go to rehab before returning home. Therapy Pain Assessment Pain When Pain Assessed At Rest Pain Present Pain Present Pain Reported Location Right Upper Leg Scale Used not quantified Pain Behaviors Guarding,[place] Pain Management Techniques Distraction,Modification of Treatment,Re-positioning M4 PT-IP Mobility and Gait Start: 09/03/21 15:16 Freq: NEEDED Status: Active Protocol: Document 09/04/21 10:46 ER (Rec: 09/04/21 14:20 ER [id number]) PT-Bed Mobility Assessment Rolling Type of Rolling Roll to Right Level of Assist Maximal Assistance,1 Person Assistance Supine to Sit Supine to Sit Maximum Assistance,1 Person Assistance Scooting Scooting to Edge of Bed Maximum Assistance PT-Transfer Assessment Sit to and From Stand Sit to and from Stand Maximum Assistance,2 Person Assistance Equipment Transfer Assistive Device Gait Belt,Front Wheeled Walker Orthotic/Prosthetic Devices or Brace: No Transfers Transfer Destination Chair,Bedside Commode Transfer Technique Stand Step Pivot Transfer Ability Level of Assist Moderate Assistance,2 Person Assistance Comments Mobility Comments Pt in bed with HOB elevated upon entry. Vitals: Supine: BP 141/56, HR 86, SaO2 94%. Bed was laid flat to simulate bed at home. Pt was unable to come directly sup>sit due to pain in her R buttock. Pt R segmental roll with UE support and maxA+1 assist, and cues for reaching LUE across body. Pt sidelying>sit with UE support and maxA+1 due to poor strength. Pt indicated that she might have to go to the bathroom and bedside commode was moved adjacent to bed. Pt sit>stand with FWW, UE support , and maxA+1, plus verbal and [employer] cues for hand placement, forward leaning, foot placement, and coming to fully erect posture. Pt. stand>sit on bedside commode using FWW and UE support, plus maxA+1 due to poor strength, plus cues for foot placement, and reaching back to commode handle before sitting. Pt indicated that she voided but did not BM, unable to void. Pt self pericare front, plus CLOTH STRETCHER Ghislaine assist in pericare posteriorly. Pt sit>stand using FWW and UE support, with maxA+2 for poor strength, with cues for hand placement on commode arm, placement of feet under COG, and coming to upright posture. Pt required maxA+1 to don new brief in sitting as was unable to reach down to bring over feet. Pt required Max A x2 sit>stand and maintain standing while also assisting brief mgt, pt required BUE heavy WB on FWW for standing support. Pt step transferred to chair using FWW and ModA+2 for poor strength and FWW management, plus cues for foot placement and backing up to chair, and reaching back to chair. Pt stand>sit using FWW and UE support, with maxA+1 for poor strength and control on descent. Pt repositioned in room on rolling chair, which was locked down after move. Pt scooted back in chair modA+1. Pt left in chair with chair alarm armed, call light in lap , and all needs within arms reach. Updated communications board to Max2 + FWW for transfers and no ambulation. Advised nursing of change of status. Gait Assessment Comments Gait Comments Step pivot transfer only. MaxA +2 PT-Balance Assessment Sitting Balance and Reactions Static Sitting Balance Ability Fair Dynamic Sitting Balance Ability Fair Standing Balance and Reactions Static Standing Balance Ability Poor Dynamic Standing Balance Ability Poor Device Used FWW M5 PT-IP Objective Assessments Start: 09/03/21 15:16 Freq: NEEDED Status: Active Protocol: Document 09/03/21 14:05 AB (Rec: 09/03/21 15:32 AB [id number]) Orientation Orientation/Cognition Level of Alertness Alert Orientation Name,Place,Situation Language Function Ability No Deficits Noted Safety Awareness Decreased Safety Awareness Memory Description Short Term Impaired Gross Range of Motion Lower Extremity ROM Assessment Within Functional Limits Strength Lower Extremity Strength Assessment Bilaterally Impaired Comments Strength Comments LLE: 4-/5 RLE: 3+/5 Sensation Assessment Sensation Gross Sensation WNL Muscle Tone Muscle Tone WNL Yes M6 PT-IP Treatment Start: 09/03/21 15:16 Freq: NEEDED Status: Active Protocol: Document 09/04/21 10:46 ER (Rec: 09/04/21 14:20 ER [id number]) Physical Therapy Treatment Education Education Provided Safety M7 PT-IP Assessment and Plan Start: 09/03/21 15:16 Freq: NEEDED Status: Active Protocol: Document 09/04/21 10:46 ER (Rec: 09/04/21 14:20 ER [id number]) PT Summary Assessment and Plan Potential Rehabilitation Potential Fair Status of Condition at Evaluation Evolving Summary Impairments Pain,ROM,Strength,Balance, Coordination,Sensation,Tone, Cognition,Bed Mobility, Transfers,Gait,Activity Tolerance Progress Towards Goals Slow Progress due to Pain,Slow Progress due to Activity Tolerance Assessment Summary Pt requires maxA+1 with bed mobility, and maxA+1 to +2 for transfers. Pt unable to ambulate today due to poor strength and R hip/buttock pain. Pt agreed that she is not strong enough to return home at this time, and that a SNF might be a good idea. Recommend SNF to improve strength, balance, gait, safety, and functional mobility before returning home . Goals Bed Mobility Goal Independent Transfer Goal Independent,Front Wheeled Walker Gait Goal Independent,Front Wheel Walker Gait Distance 100 Other Goals up/marisa 2 steps L rail SBA Days to Meet Goals 10 Frequency of Treatment Frequency Of Treatment Once a Day Treatment Plan Physical Therapy Treatment Plan Bed Mobility Training,Transfer Training,Gait Training, Therapeutic Exercise,Balance Retraining,Post Op Education, Discharge Planning,Hot or Cold Pack,Neuromuscular Re-ed, Coordination Retraining,Manual Therapy Other Recommendations and Next Treatment Bed mobility and transfers. Focus Gait as tolerated. Recommendations To Nursing Amount of Assist Needed 2 Person Assist Discharge Recommendations PT Discharge Recommendations SNF Rehab Transportation Needs at Discharge Private Vehicle,Wheelchair/ Cabulance
[2021-09-04] MEDS: SODIUM CHLORIDE 0.9% 500 ML 40 ML IV (16:00)
--- NOTE | 2021-09-04 16:27 | PM.PN.1 ---
Subjective Subjective Interval history: PATIENT BEING TREATED FOR AN ACUTE COPD EXACERBATION TODAY SHE STATED THAT SHE FEELING MUCH BETTER SHE DENIES ANY CHEST PAIN. NO SHORTNESS OF BREATH. NO CHEST PAIN PER THE CHEST PETITION. SHE STATED THAT SHE LIVES ALONE BUT SHE DOES HAVE ASYSTOLE TO CHECK ON HER A TIME WHEN ASKED ABOUT SOCIAL SUPPORT Exam Vital Signs (past 8 hours): - 09/04/21 08:30 09/04/21 09:50 09/04/21 14:08 Temperature 97.5 F L Pulse Rate 100 H 100 H Respiratory Rate 18 Blood Pressure 156/82 H 156/82 H Pulse Oximetry 94 95 09/04/21 15:00 Temperature 98.4 F Pulse Rate 97 H Respiratory Rate 18 Blood Pressure 126/65 Pulse Oximetry 93 Oxygen Delivery Method Room Air Oxygen Flow Rate 0 Narrative Exam Narrative: NO ACUTE DISTRESS.? PATIENT IS ALERT ORIENTED X3.? THIN / CACHECTIC VITAL SIGNS STABLE HEAD ATRAUMATIC NORMOCEPHALIC NECK : SUPPLE WITHOUT ADENOPATHY NO CAROTID BRUITS EYE:? EOMI, PERRLA, NORMAL CONJUNCTIVA; NO JAUNDICE CHEST:? REGULAR RATE.? ? NO RUBS.? PMI IS NON DISPLACED.? NORMAL S1-S2 PULMONARY: ? WHEEZING APPRECIATED.? NO RHONCHI.? NO RALES.? NO PLEURAL RUBS DECREASED BS OVER THE BASES.? MILD BIBASILAR CRACKLES NOTED; NO INCREASED DULLNESS TO PERCUSSION ABDOMEN:? SOFT.? NONTENDER.? NONDISTENDED.? BOWEL SOUNDS ARE PRESENT IN ALL 4 QUADRANTS.? EXTREMITIES:? TRACE BILATERAL LOWER EXTREMITYEDEMA..? NO CYANOSIS CLUBBING NOTED. NEURO:? CRANIAL NERVES 2-12 GROSSLY INTACT. NO FOCAL NEUROLOGICAL DEFICIT NOTED. BASELINE DEMENTIA MSK:? NORMAL RANGE OF MOTION FOR AGE.? NO JOINT EFFUSION. POOR MUSCULATURE SKIN: ? FAIR SKIN TURGOR FOR AGE; NO ECCHYMOSIS.? NO LESION. ? GOOD? TURGOR.; NO RASHES PSYCH :? APPROPRIATE MOOD AND AFFECT.? ALERT AWAKE ORIENTED X3 Objective Labs Result Diagrams: 09/04/21 05:25 09/04/21 05:25 Labs: Laboratory Results - last 24 hr 09/04/21 09/04/21 05:25 05:25 WBC 18.2 H RBC 4.21 Hgb 11.8 L Hct 36.0 MCV 85.4 MCH 27.9 MCHC 32.7 RDW 22.7 H Plt Count 287 Neut % (Auto) 93.9 H Lymph % (Auto) 2.3 L [place] % (Auto) 2.5 L Eos % (Auto) 0.0 L Baso % (Auto) 1.3 Neut # (Auto) 25785 H Lymph # (Auto) 400 L [place] # (Auto) 500 Eos # (Auto) 0 Baso # (Auto) 200 H RBC Morphology See below Polychromasia 1+ H Anisocytosis 2+ H Sodium 127 L Potassium 4.4 Chloride 90 L Carbon Dioxide 29 BUN 32 H Creatinine 0.69 Estimated GFR > 60.0 BUN/Creatinine Ratio 46.4 H Glucose 134 H Calcium 9.3 Phosphorus 3.3 Magnesium 2.0 Total Bilirubin 0.6 AST 21 ALT 12 Alkaline Phosphatase 56 NT-Pro-B Natriuret Pep 5040 H Total Protein 6.8 Albumin 3.8 Globulin 3.0 Albumin/Globulin Ratio 1.3 PFSH Medical History Rheumatoid arthritis Tobacco abuse Surgical History History of left hip replacement Social History household members: none Smoking Status: Former smoker alcohol intake: current Assessment & Plan Assessment & Plan narrative: ?PROBLEM LIST 1.? ACUTE ON CHRONIC HYPOXIC RESPIRATORY FAILURE.? SECONDARY TO COPD EXACERBATION 2. COPD? WITH? ACUTE? EXACERBATION 2A---? ELEVATED TROPONIN.? CONSIDER NON STEMI TYPE 2 SECONDARY TO CARDIAC STRAIN RELATED TO ACUTE RESPIRATORY FAILURE.? ECHOCARDIOGRAM SHOWING A FAIRLY STABLE EJECTION FRACTION WITHOUT SIGNIFICANT VALVULOPATHY 3-? POSSIBLE SEPSIS.? PRESENT ON ARRIVAL 4- LEUKOCYTOSIS. ? ON ANTIBIOTICS 5-? RHEUMATOID ARTHRITIS FOR HISTORY 6---- HYPONATREMIA.? LIKELY SIADH.? SODIUM SLIGHTLY WORSENED OVERNIGHT ?PLAN 09/03 ?WILL START ON A LOW? RATE IV FLUID TO HAVE AN IMPROVED SODIUM LEVEL ?SPOKE TO PHARMACY, WILL INCREASE SODIUM TABLET TO BE 80 ?CONTINUE CURRENT ANTIBIOTICS FOR NOW ?SLIGHT INCREASE IN WBC IS LIKELY RELATED TO STEROIDS USE ?PATIENT APPEARED CLINICALLY IMPROVED ?SHE DOES NOT APPEAR TO BE TOXIC. ? NO REPORT OF INCREASING OR WORSENING SHORTNESS OF BREATH ?WILL CONSIDER SWITCHING TO ORAL TABLETS IN THE NEXT 24 HOURS REGARD TO ANTIBIOTICS ?CONTINUE TO MONITOR CLOSELY ?MIGHT NEED INTERMEDIATE FACILITY PLACEMENT DUE TO SIGN OF PHYSICAL DECONDITIONING AND? LIMITED HUMAN SERVICES PROFESSIONAL 1124 ?PATIENT IMPROVED OVERNIGHT ?WILL HOWEVER RESTRICT FLUID TO DO DECREASE IN SODIUM NOTED OVERNIGHT ?FLUID RESTRICTED TO 1500 CC DAILY IN BREATHING OR FLUID INTAKE ?AWAITING ECHOCARDIOGRAM ?OXYGEN THERAPY TO MAINTAIN PROPER OXYGEN SATURATION ABOVE 88% AT ALL TIMES ?WITH EVALUATE PATIENT FOR HOME OXYGEN NEED CLOSE TO DISCHARGE ? ABG AND CHEST X-RAY INDICATED ?AGGRESSIVE PULMONARY TOILETING ?PHYSICAL THERAPY TEAM CONSULTED? FOR EVALUATION AND TREATMENT INDICATED ?FALL PRECAUTION TO BE ADMITTED OR TIME ?ADDITIONAL MEASURE PER CLINICAL COURSE ?DISCHARGE POSSIBLY IN 2 TO 3 DAYS IF CLINICALLY STABLE 09/01 ?IN REGARD TO THE ELEVATED TROPONIN ?SHE IS ON DVT PROPHYLAXIS DOSE OF LOVENOX FOR NOW ?IF INDICATED WILL SWITCH TO ?WILL REPEAT TROPONIN LEVEL SERIALLY TO FOLLOW ?KEEP PATIENT ON TELE AT ALL TIMES ?PATIENT GIVEN ASPIRIN ?CHECK LIPID IN THE MORNING ?CHECK HEMOGLOBIN A1C WELL ?STRICT BLOOD PRESSURE CONTROL SEGUNDO ?CONTINUE HOME BETA-JOSE C ?GET ECHOCARDIOGRAM ?REFER? TO TERTIARY FACILITY FOR OF CARE FOR INDICATED CLINICALLY ? FOR HER COPD EXACERBATION ?PATIENT IS ON ROCEPHIN AND DOXYCYCLINE ?SOLU-MEDROL ORDERED T.I.D. ?WILL ALSO ADD BREATHING TREATMENTS SCHEDULED AND NEEDED ?AGGRESSIVE PULMONARY TOILETING ?CONSIDER CULTURE OF THE SPUTUM IF INDICATED CLINICALLY ?OXYGEN SUPPLEMENT TO MAINTAIN PROPER OXYGEN SATURATION ABOVE 88% OF TIME ?SERIAL CHEST X-RAY ABG TO FOLLOW CLINICALLY ?ADDITIONAL MANAGEMENT PER CLINICAL COURSE Time Spent With Patient Critical Care time: I spent a total of [] minutes of critical care time on this patient's care today; this time is exclusive of procedural time. Quality VTE Deep Vein Thrombosis/Pulmonary Embolism Present on Admission: No
[2021-09-04] MEDS: cefTRIAXone 1,000 MG in SODIUM CHLORIDE 0.9% 100 ML 200 ML IV (16:43)
--- NOTE | 2021-09-04 19:01 | PC.NURSE ---
Pt is pleasant A&OX2, slightly forgetful. Some mild confusion this evening as she thinks meal passer is here for a food drive for the hospital, orientation slightly off by a couple of days. She does verbalize that she understands not being able to discharge home alone. She is a max assist to the bsc x2, for + BM and voiding today. Skin is red, blanchable. She c/o of pain when standing she reports it's just too painful to put weight on but at rest she reports pain 2/10 today. She remains NSR, with PCVS on telemetry. VSS,afebrile on RA.
[2021-09-04] MEDS: SENNOSIDES 8.6 MG TABLET 17.2 MG PO (22:52)
[2021-09-05] VITALS (10 sets, daily range): BP systolic 150–174; BP diastolic 77–85; PULSE 88–98; RESP 14–22; TEMP 36.3–36.6; O2SAT 95–100
[2021-09-05] MEDS: ACETAMINOPHEN 325 MG TABLET 650 MG PO ×2 (05:28→12:40)
[2021-09-05] MEDS: PANTOPRAZOLE DR 20 MG TABLET PO (05:28)
[2021-09-05] MEDS: SODIUM CHLORIDE 0.9% 500 ML 40 ML IV (05:48)
[2021-09-05 06:57] LABS: Add Manual Diff / Slide Review NO; Basophils Absolute Auto 100 /uL (0-100); Basophils Percent Auto 0.4 % (0-2); Eosinophils Absolute Auto 0 /uL (0-450); Hematocrit 37.7 % (36-46); Hemoglobin 12.2 g/dL (12.0-16.0); Lymphocytes Absolute Auto 200 /uL (1100-4500); Lymphocytes Percent Auto 1.5 % (25-40); Mean Corpuscular HGB Conc 32.4 % (30-36); Mean Corpuscular Hemoglobin 27.8 PG (26-34); Monocytes Absolute Auto 200 /uL (0-900); Monocytes Percent Auto 1.5 % (3-14); Neutrophils Absolute Auto 15800 /uL (1500-7000); Neutrophils Percent Auto 96.6 % (50-75); Platelet Count 349 X10^3/uL (150-400); Red Blood Cell Count 4.39 X10^6/uL (4.0-5.2); Red Cell Distribution Width 23.1 % (11.6-14.8); White Blood Cell Count 16.3 X10^3/uL (4.5-11.0)
[2021-09-05 07:08] LABS: Alanine Aminotransferase 11 IU/L (<35); Albumin 3.6 g/dL (3.5-5.0); Albumin Globulin Ratio 1.3 (1.0-2.8); Alkaline Phosphatase 53 U/L (38-126); Aspartate Aminotransferase 18 IU/L (14-36); BUN Creatinine Ratio 59.4 (6-22); Bilirubin Total 0.5 mg/dL (0.2-1.3); Blood Urea Nitrogen 41 mg/dL (7-17); Calcium 9.3 mg/dL (8.4-10.2); Carbon Dioxide 27 mmol/L (22-32); Chloride 94 mmol/L (98-107); Estimated Glomerular Filt Rate > 60.0 mL/min (>60); Globulin 2.7 g/dL (1.7-4.1); Glucose 113 mg/dL (80-110); HEMOLYSIS < 15 (0-50); Magnesium 2.1 mg/dL (1.6-2.3); Phosphorous 3.2 mg/dL (2.8-4.1); Potassium 4.8 mmol/L (3.4-5.1); Sodium 129 mmol/L (137-145); Total Protein 6.3 g/dL (6.3-8.2)
[2021-09-05 07:12] LABS: NT-proBNP (BNP-Adult 18+) 4140 pg/mL (<450)
[2021-09-05 07:30] LABS: Anisocytosis 2+
[2021-09-05] MEDS: ALBUTEROL/IPRATROPIUM 3 ML AMPUL INH ×2 (07:43→12:08)
[2021-09-05] MEDS: BUDESONIDE 0.5 MG/2 ML NEB INH (07:44)
[2021-09-05] MEDS: ENOXAPARIN 30 MG/0.3 ML SYRINGE SUBCUT (08:49)
[2021-09-05] MEDS: SUCRALFATE 1 GM TABLET PO ×2 (08:49→12:48)
[2021-09-05] MEDS: DOXYCYCLINE HYCLATE 100 MG TABLET PO (08:49)
[2021-09-05] MEDS: FOLIC ACID 1 MG TABLET PO (08:50)
[2021-09-05] MEDS: SODIUM CHLORIDE 1,000 MG TABLET 1000 MG PO (08:50)
[2021-09-05] MEDS: ASPIRIN 325 MG TABLET PO (09:01)
[2021-09-05] MEDS: ASCORBIC ACID 500 MG TABLET PO (09:01)
[2021-09-05] MEDS: polyethylene glycoL 3350 17 GM POWD.PACK PO (09:01)
[2021-09-05] MEDS: METOPROLOL ER 50 MG TABLET PO (09:01)
[2021-09-05] MEDS: TIMOLOL 0.5% OPHTH 1 DROPS EYE-BOTH (09:02)
[2021-09-05] MEDS: MULTIVIT,CALC,MINS/IRON/FOLIC 1 TABLET 1 TAB PO (09:33)
--- NOTE | 2021-09-05 09:35 | OT.IP.EVAL ---
Current Diagnoses Acute and chronic respiratory failure with hypoxia (09/02/21) Past Medical History (Last Reviewed 09/02/21 @ 09:19 by Jesu Novoa DO) History of left hip replacement Rheumatoid arthritis Tobacco abuse Surgical History (Last Reviewed 03/04/21 @ 08:49 by Tristen Lyman PA-C) History of left hip replacement Occupational Therapy Inpatient Evaluation/Re-Eval M1 PT/OT-IP Prior Functional Status Start: 09/03/21 15:16 Freq: NEEDED Status: Active Protocol: Document 09/05/21 09:00 [facility] (Rec: 09/05/21 09:51 [facility] [id number]) Medical Review Prior Functional Status Medical History Reviewed Yes Communication able to make needs known Mobility and Gait pt stated that she is modified independent with all mobilities and ambulation using a FWW; stated that her sister comes in 2x daily to check on her and maybe stays ~ 1 hour. her [id number] also comes in to assist as needed. Activities of Daily Living and IADL's pt stated that her sister provides SBA for shower needs Social History Household Members none Living Arrangements House Number of Floors (Floors) One Floor Number of Stairs To Enter/Railing? 2 steps L rail ascending Home Environment Standard Height Toilet,Tub/ Shower Home Equipment Front Wheel Walker,Bedside Commode,Raised Toilet Seat w/ Armrests,Lift Recliner,Grab Bars In Shower M2 OT-IP Current Condition Start: 09/05/21 09:34 Freq: Status: Active Protocol: Document 09/05/21 09:00 [facility] (Rec: 09/05/21 09:51 [facility] [id number]) Occupational Therapy Current Condition Current Condition Evaluation Date 09/05/21 Treatment Diagnosis COPD exacerbation, decreased mobility M3 OT- IP Subjective and Pain Start: 09/05/21 09:34 Freq: Status: Active Protocol: Document 09/05/21 09:00 [facility] (Rec: 09/05/21 09:51 [facility] [id number]) OT- Subjective Occupational Therapy Visit Type Type Initial Evaluation Visit Start Time 09:00 Visit Stop Time 09:35 Total Visit Minutes 35 Occupational Therapy Visit Comments Patient Comments Pt agreed to try to get up. Patient/Caregiver Goals Pt feels that she will have to go to skilled rehab prior to going home. OT Pain Assessment Pain When Pain Assessed At Rest Pain Present Pain Present Pain Reported Location Right Upper Leg Intensity 8 Scale Used Numeric (0 - 10) M4 OT- IP ADL's Start: 09/05/21 09:34 Freq: Status: Active Protocol: Document 09/05/21 09:00 [facility] (Rec: 09/05/21 09:51 [facility] [id number]) OT [id number] Comments OT Self-Feeding Comments Not at meal time, pt states able to drink her Ensure. OT ADL-Grooming Comments OT Grooming Comments Pt states to do later. OT ADL-Dressing General Eval Lower Body Dressing Ability Maximum Assistance,Total Assistance Comments OT Dressing Comments MAXA for needs at this time. OT ADL-Toileting General Evaluation Toileting Ability Total Assistance Comments OT Toileting Comments Brief in place and use of bed bryan at this time as having too much pain when mobilizing. OT ADL-Bathing Comments OT Bathing Comments Sponge bath more appropriate at this time. M5 OT- IP IADL's Start: 09/05/21 09:34 Freq: Status: Active Protocol: Document 09/05/21 09:00 [facility] (Rec: 09/05/21 09:51 [facility] [id number]) OT-Instrumental Activities of Daily Living Home Safety Awareness Awareness of Need for Assistance at Home Good Awareness Ability to Problem Solve Emergency Able to Problem Solve Situations Home Safety Comments Increased time to problem solving home safety situations . Medication Management Medication Management Caregiver Administers Medication Management Comments Pt's sister assists. Money Management Money Management Caregiver Provides Assistance Meal Preparation Meal Preparation Caregiver Provides Assist Meal Preparation Comments Pt states mainly just heats on her meals in the microwave. Custom Garment Designer Custom Garment Designer Caregiver Provides Assist Driving Driving Comments Pt does not drive. M6 OT- IP Functional Cognition Start: 09/05/21 09:34 Freq: Status: Active Protocol: Document 09/05/21 09:00 [facility] (Rec: 09/05/21 09:51 [facility] [id number]) Cognitive Factors Limiting Selfcare Function Cognitive Ability Level of Alertness Alert Patient Orientation Name,Place,Situation Attention Span Ability Capable of Focused Attention, Capable of Sustained Attention Ability to Follow Commands Able to Follow One Step Commands with Increased Time, Able to Follow One Step Commands with Repetition Cognitive Comments Cognitive Assessment Comments Pt able to follow commands for mobility needs. Pt would benefit from a formal cognitive assessment. OT- Vision and Hearing OT- Hearing Assessment OT- Hearing Assessment WFL OT- Vision Assessment Visual Acuity Glasses For Reading Vision Assessment Comments Pt able to read the clock accurately. M7 OT- IP Mobility and Balance Start: 09/05/21:34 Freq: Status: Active Protocol: Document 09/05/21 09:00 [facility] (Rec: 09/05/21 09:51 [facility] [id number]) OT- Bed Mobility Assessment Rolling Type of Rolling Bilateral Level of Assistance Maximum Assistance,1 Person Assistance OT-Transfer Assessment Comments Mobility Comments Attempted to get pt out of the bed to use the commode and in too much pain when attempted supine to sit, even with the head of the bed up. Pt able to assist to roll side to side with MAX AX 1. NUrsing aware of pt's pain at this time. OT- Gait Assessment Comments Gait Ability Comments Pt not walking at this time. OT- Balance Assessment Comments Other Balance Tests/Deviations/Treatment Unable to formally assess as : not able to get pt up to the edge of the bed due to excessive pain at her right leg and hips. M8 OT- IP Objective Assessments Start: 09/05/21:34 Freq: Status: Active Protocol: Document 09/05/21 09:00 [facility] (Rec: 09/05/21 09:51 [facility] [id number]) OT Gross Range of Motion Upper Extremity Range of Motion Assessment Within Functional Limits OT Strength Upper Extremity Strength Assessment Bilaterally Impaired OT- Coordination Assessment Comments Coordination Comments Arthritic changes in the hands due to arthritis. OT-Muscle Tone Assessment Muscle Tone WNL Yes M9 OT- IP Assessment and Plan Start: 09/05/21:34 Freq: Status: Active Protocol: Document 09/05/21 09:00 [facility] (Rec: 09/05/21 09:51 [facility] [id number]) OT Summary Assessment and Plan Potential Rehabilitation Potential Fair Analytic Complexity at Evaluation Moderate Summary OT Impairments Pain,Balance,Coordination, Functional Cognition, Functional Mobility,Grooming, Dressing,Toileting,Bathing, Toilet Transfers,Shower Transfers,Activity Tolerance Progress Towards Goals Slow Progress due to Pain,Slow Progress due to Medical Issues,Slow Progress due to Activity Tolerance Assessment Summary Pt MOD complexity and here due to acute COPD exacerbation and main barriers are pain, now only able to tolerate rolling in the bed, has steps to enter her home, and now needing use of bed bryan and needing extensive assist for all needs. Pt would benefit from skilled rehab prior to going home. Goals Self-Feeding Goal Independent Grooming Goal Independent Dressing Goal Independent Toileting Goal Independent Bathing Goal Standby Assistance Toilet Transfer Goal Independent Shower Transfer Goal Independent Days to Meet Goals 30 Frequency of Treatment Frequency Of Treatment Once a Day Treatment Plan OT Treatment Plan ADL Training,Functional Cognition Training,Functional Mobility,Patient/Family Education,Discharge Planning Other Treatment Recommendations and Next Transfer [place] [facility] [place] MAX AX 2 Treatment Focus and FWW. Discharge Recommendations OT Discharge Recommendations SNF Rehab Transportation Needs at Discharge Wheelchair/Cabulance
--- NOTE | 2021-09-05 12:17 | P.DS_ITS ---
History of Present Illness History of Present Illness Chief complaint: Right hip pain Narrative: THIS IS AN 80-YEAR-OLD FEMALE FOR HISTORY OF COPD DUE TO TOBACCO USE. SHE STATED THAT SHE USED TOBACCO FOR ABOUT 42 YEARS. SHE DENIES ANY PRIOR HISTORY OF CAD. SHE DOES HAVE RHEUMATOID ARTHRITIS. SHE IS ON METHOTREXATE SHE CAME TO THE HOSPITAL REPORTEDLY DUE TO HIP PAIN. HOWEVER DURING HER WORKUP IN THE ER SHE DEVELOPED SOME SHORTNESS OF BREATH WHERE SATURATION WAS NOTED TO BE ON THE LOWER 70S. SHE DID REPORT THAT SHE DOES GET SHORT OF BREATH QUITE EASILY /WITH MINIMAL EXERTION. SHE DENIES ANY CHEST PAIN. NO CHEST FROM THE PATIENT. SHE DENIES ANY SYNCOPE OR PRESYNCOPAL SYMPTOMS. SHE DENIES ANY DIAPHORESIS. NO NAUSEA OR VOMITING. NO ORTHOPNEA. NO INCREASING SWELLING TO LOWER EXTREMITIES IN THE ER, SIGNIFICANT TO GO CYTOSIS APPRECIATED. LOW-SODIUM ALSO NOTED. KIDNEY FUNCTIONS FAIRLY STABLE. COVID-19 WELL VIRAL PANEL TESTING WAS NEGATIVE Discharge Providers Provider Date of admission: 09/02/21 14:14 Discharge Date: 09/05/21 Primary care physician: Ilana Frances MD Consults: 09/02/21 13:23 Consult to FIELD SERVICE CONSULTANT - Tie Knitter Helper Stat Comment: 09/02/21 14:28 Consult to Discharge Planning Routine Comment: 09/03/21 10:08 Consult to Physical Therapy Evaluate & Treat Comment: Physician Instructions: Evaluate and Treat 09/03/21 12:33 Consult to Dietitian, Adult Routine Comment: Reason For Exam: Dietary consult for nutrition 09/03/21 15:35 Consult to Occupational Therapy Evaluate & Treat Comment: Physician Instructions: Evaluate and treat Discharge provider: Tarun Sahu DO Summary Hospital Course Discharge Diagnosis: 1.? ACUTE ON CHRONIC HYPOXIC RESPIRATORY FAILURE.? SECONDARY TO COPD EXACERBATION; RESOLVING 2. COPD? WITH? ACUTE? EXACERBATION. DISCHARGE INTUBATED EXT 2A---?NSTEMI TYPE 2. PRESENT ON ARRIVAL 3-? POSSIBLE SEPSIS.? PRESENT ON ARRIVAL 4- LEUKOCYTOSIS. ? ON ANTIBIOTICS 5-? RHEUMATOID ARTHRITIS FOR HISTORY 6---- HYPONATREMIA.? LIKELY SIADH.? SODIUM SLIGHTLY WORSENED OVERNIGHT Hospital Course: PATIENT IS AT THE HOSPITAL WITH A SIGN OF ACUTE ON CHRONIC RESPIRATORY FAILURE SHE WAS TREATED FOR AN ACUTE EXACERBATION OF COPD. SIGNIFICANT LEUKOCYTOSIS ALSO APPRECIATED ON ADMISSION. THIS WAS SEPSIS WITH THIS SOURCE BEING THE LUNGS ELEVATED TROPONIN LEVEL ALSO NOTED IN ADMISSION.THIS WAS SUSPECTED TO BE NSTEMI TYPE 2. SHE WAS STARTED ON ANTIBIOTICS, DUONEB TREATMENTS. RESPONDED POSITIVELY TO TREATMENT. SHE SHOWS SIDE OF SIGNIFICANT PHYSICAL DECONDITIONING AND REFERRED TO A [facility] FACILITY FOR EXTENSIVE PT AND OT Status at Discharge Cognitive/behavioral status at discharge: oriented Functional status at discharge: uses cane/walker Overall status at discharge: patient is progressing back to baseline Time Spent with Patient Time spent: Greater than 30 minutes Exam Vital Signs (past 8 hours): - 09/05/21 05:21 09/05/21 06:00 09/05/21 07:44 Temperature 97.8 F Pulse Rate 92 H 98 H Respiratory Rate 14 22 Blood Pressure 152/84 H Pulse Oximetry 95 95 95 09/05/21 07:55 09/05/21 08:00 09/05/21 09:01 Temperature 97.3 F L Pulse Rate 94 H 88 94 H Respiratory Rate 22 18 Blood Pressure 174/85 H 152/84 H Pulse Oximetry 95 100 09/05/21 11:00 09/05/21 12:08 Temperature Pulse Rate 96 H Respiratory Rate 20 Blood Pressure Pulse Oximetry 98 95 Oxygen Delivery Method Room Air Oxygen Flow Rate 0 Narrative Exam Narrative: NO ACUTE DISTRESS.? PATIENT IS ALERT ORIENTED X3.? THIN / CACHECTIC VITAL SIGNS STABLE HEAD ATRAUMATIC NORMOCEPHALIC NECK : SUPPLE WITHOUT ADENOPATHY NO CAROTID BRUITS EYE:? EOMI, PERRLA, NORMAL CONJUNCTIVA; NO JAUNDICE CHEST:? REGULAR RATE.? ? NO RUBS.? PMI IS NON DISPLACED.? NORMAL S1-S2 PULMONARY: ? WHEEZING APPRECIATED.? NO RHONCHI.? NO RALES.? NO PLEURAL RUBS DECREASED BS OVER THE BASES.? MILD BIBASILAR CRACKLES NOTED; NO INCREASED DULLNESS TO PERCUSSION ABDOMEN:? SOFT.? NONTENDER.? NONDISTENDED.? BOWEL SOUNDS ARE PRESENT IN ALL 4 QUADRANTS.? EXTREMITIES:? TRACE BILATERAL LOWER EXTREMITYEDEMA..? NO CYANOSIS CLUBBING NOTED. NEURO:? CRANIAL NERVES 2-12 GROSSLY INTACT. NO FOCAL NEUROLOGICAL DEFICIT NOTED. BASELINE DEMENTIA MSK:? NORMAL RANGE OF MOTION FOR AGE.? NO JOINT EFFUSION. POOR MUSCULATURE SKIN: ? FAIR SKIN TURGOR FOR AGE; NO ECCHYMOSIS.? NO LESION. ? GOOD? TURGOR.; NO RASHES PSYCH :? APPROPRIATE MOOD AND AFFECT.? ALERT AWAKE ORIENTED X3 Objective Labs Result Diagrams: 09/05/21 06:10 09/05/21 06:10 Labs: Laboratory Results - last 24 hr 09/05/21 09/05/21 06:10 06:10 WBC 16.3 H RBC 4.39 Hgb 12.2 Hct 37.7 MCV 86.0 MCH 27.8 MCHC 32.4 RDW 23.1 H Plt Count 349 Neut % (Auto) 96.6 H Lymph % (Auto) 1.5 L [place] % (Auto) 1.5 L Eos % (Auto) 0.0 L Baso % (Auto) 0.4 Neut # (Auto) 81574 H Lymph # (Auto) 200 L [place] # (Auto) 200 Eos # (Auto) 0 Baso # (Auto) 100 RBC Morphology Not Reportable Anisocytosis 2+ H Sodium 129 L Potassium 4.8 Chloride 94 L Carbon Dioxide 27 BUN 41 H Creatinine 0.69 Estimated GFR > 60.0 BUN/Creatinine Ratio 59.4 H Glucose 113 H Calcium 9.3 Phosphorus 3.2 Magnesium 2.1 Total Bilirubin 0.5 AST 18 ALT 11 Alkaline Phosphatase 53 NT-Pro-B Natriuret Pep 4140 H Total Protein 6.3 Albumin 3.6 Globulin 2.7 Albumin/Globulin Ratio 1.3 PFSH Medical History Rheumatoid arthritis Tobacco abuse Surgical History History of left hip replacement Social History household members: none Smoking Status: Former smoker alcohol intake: current Discharge Plan Discharge Plan Patient Disposition: SNF Transfer to: [facility] Discharge orders & Medications Prescriptions: New ascorbic acid (vitamin C) [Vitamin C] 500 mg Tablet 500 mg PO BID Qty: 30 0RF aspirin 325 mg Tablet 325 mg PO DAILY Qty: 30 0RF doxycycline hyclate 100 mg Tablet 100 mg PO BID Qty: 14 0RF Thera M Plus (ferrous fumarat) 9 mg iron-400 mcg Tablet 1 tab PO DAILY Qty: 30 0RF sennosides [senna] 8.6 mg Tablet 8.6 mg PO BEDTIME Qty: 30 0RF nitroglycerin [Nitrostat] 0.4 mg Tablet, Sublingual 0.4 mg sublingual [id number] PRN (Reason: Chest Pain) Qty: 12 0RF sucralfate 1 gram Tablet 1 gm PO ACHS Qty: 90 0RF cefdinir 300 mg capsule 300 mg PO BID Qty: 14 0RF Continued timolol maleate 0.5 % drops 1 drp OPHTH BID Qty: 5 0RF methotrexate sodium 2.5 mg tablet 15 mg PO QWEEK Qty: 30 0RF Rx Instructions: takes each Wednesday albuterol sulfate 90 mcg/actuation aerosol powdr breath activated 1 inh inhalation Q4-6H PRN (Reason: shortness of breath) Qty: 1 0RF Label Comments: Pt states she can't use it r/t hand dexterity. fluticasone propion-salmeterol [Advair Diskus] 250-50 mcg/dose Blister With Device 1 inh INHALATION BID 0RF polyethylene glycol 3350 17 gram Powder In Packet 17 g PO QAM 0RF metoprolol succinate 50 mg tablet extended release 24 hr 50 mg PO QAM 0RF pantoprazole [Protonix] 40 mg Tablet,Delayed Release (Dr/Ec) 40 mg PO QAM 0RF calcium carbonate 500 mg calcium (1,250 mg) Tablet,Chewable 500 mg PO Q6HR PRN (Reason: gerd) 0RF folic acid 1 mg Tablet 1 mg PO QAM 0RF furosemide 20 mg tablet 20 mg PO QAM Qty: 0 0RF Changed sodium chloride 1 gram tablet 1 g PO BID Qty: 0 0RF Discontinued omeprazole 20 mg Capsule,Delayed Release(Dr/Ec) 20 mg PO QAM 0RF acetaminophen 325 mg tablet 650 mg PO QAM 0RF Follow up/Referrals: Ilana Frances MD [Primary Care Provider] - Diet/Activity/Treatments Diet: Regular Liquid consistency: Normal/Thin Food texture: Soft Skin/Wound/Dressing Care Report to your healthcare provider any signs of infection, such as:: chills, fever, night sweats, increased pain and unusual drainage Special Rehabilitation Services Reason for rehabilitation: Recovery r/t decondition Rehab type: Physical therapy and Occupational therapy Discharge Data Primary Care Provider: Ilana Frances Quality VTE Deep Vein Thrombosis/Pulmonary Embolism Present on Admission: No
[2021-09-05 13:01] LABS: COVID19 -Nasal RAPID Negative (Negative)
--- NOTE | 2021-09-05 13:55 | PT-IP ANOTE ---
Attempted to see pt at 13:55, but pt already d/c to SNF.
--- NOTE | 2021-09-05 14:07 | CM.DANOTE ---
Pt A&OX2-3, pleasant. VSS, afebrile on RA. SBP slightly elevated 150 this shift, scheduled metoprolol given. NSR with PVC's on telemetry. Pt reports pain 8-10/10 with movement to R hip and R buttock/thigh region with movement but at rest is minimal. She uses the bed bryan this shift. She has fair po intake this a.m. and acknowledges understanding and agreement with discharge plan today. She remains a max assist to transfer. RN called report to Jenniffer at [facility]. Facility designee arrived to transport patient at 1330 and patient transported at approximately 1345 with her robes and pajamas and slippers, no other belongings noted with patient.
--- NOTE | 2021-09-06 09:04 | CM.DPNOTE ---
Late Entry DC Note Patient ready for DC yesterday and was requesting DC to [facility]; patient concerned about return home alone Placed call to March at [facility] reviewed this referral and patient was inevitably accepted for admission same day 09.05.21. COVID PCR was updated and March was able to confirm COVID vaccination because patient had received her J+J vaccine while admitted at [facility] in February 2021 Patient remained agreeable to plan. Placed call to sister Griselda Damian who stated relief that patient was discharging to SNF. Sister Griselda Salazar's spouse Brandon Damian is COVID+ and has now readmitted to . Strongly encouraged Griselda Salazar to get tested, stay home, and take good care of herself. P/u scheduled for 1330 yesterday and JERI Pandya was updated as plan unfolded. Report number given for contact w/ JERI shell and [facility]. Plan: DC to [facility] yesterday via w/c van. All signed and completed DC ppk and completed PASRR faxed JW
== END 2021-09-05 13:45 | DRG 190 ==
LOC: ED 13:32 → AC 14:16
PROVIDERS: Admitting Provider Hospitalist; Emergency Provider Emergency Medicine; Family Provider Internal Medicine; PCP Internal Medicine; Referring Provider Emergency Medicine; Visit Provider Hospitalist
DX: J44.1 Chronic obstructive pulmonary disease with (acute) exacerbation (principal); J96.21 Acute and chronic respiratory failure with hypoxia; E43 Unspecified severe protein-calorie malnutrition; I21.A1 Myocardial infarction type 2; A41.9 Sepsis, unspecified organism; Z68.1 Body mass index [BMI] 19.9 or less, adult; E22.2 Syndrome of inappropriate secretion of antidiuretic hormone; M25.551 Pain in right hip; M06.9 Rheumatoid arthritis, unspecified; Z87.891 Personal history of nicotine dependence; Z20.822 Contact with and (suspected) exposure to COVID-19
CPT/HCPCS: 36415; 71045; 73502; 73552; 80053; 80061; 81003; 82550; 83036; 83605; 83690; 83735; 83880; 84100; 84145; 84484; 85025; 87040; 87633; 87635; 93005; 93306; 94640; 94760; 97162; 97166; 97530; 99284; 99285; C9803; J0696; J1650; J2920; J7613; J8610